=== PATIENT | male | born 1955 | race Caucasian/White ===

== ENCOUNTER 2017-07-13 18:44 | Inpatient (IN) | payer MEDICAID ==
[~2017-07-13] VITALS: Ht 167.6 cm; Wt 86.2 kg
[2017-07-13 19:09] LABS: BASOPHILS 0.3 % (0-2); HEMATOCRIT 38.5 % (42.0-54.0); HEMOGLOBIN 12.8 g/dL (13.5-17.5); IMMATURE GRANULOCYTES 0.2 % (0-5); LYMPHOCYTES 16.2 % (15-50); MCH 29.4 pg (26.0-34.0); MCHC 33.2 g/dL (31.0-37.0); MCV 88.3 fL (80.0-100.0); MEAN PLATELET VOLUME 9.8 fL (7.4-10.4); MONOCYTES 11.9 % (2-11); NEUTROPHILS 69.4 % (40-80); PLATELET COUNT 201 10x3/uL (130-400); RBC 4.36 10x6/uL (4.20-6.10); RDW 13.4 % (11.5-14.5)
[2017-07-13 19:24] LABS: ALBUMIN 3.5 g/dL (3.4-5.0); ANION GAP 11.8 mmol/L (8-16); BILIRUBIN - TOTAL 0.69 mg/dL (0.2-1.3); CALCIUM 8.6 mg/dL (8.5-10.1); CARBON DIOXIDE 26.5 mmol/L (21.0-32.0); CREATININE - SERUM 1.2 mg/dL (0.6-1.3); POTASSIUM - SERUM 4.3 mmol/L (3.5-5.1)
[2017-07-13 19:27] LABS: TROPONIN-I 0.043 ng/mL (0.000-0.060)
[2017-07-13 19:44] LABS: CKMB 2.9 U/L (0.0-3.6); CREATINE KINASE 174 UL (21-232); PRO BNP 8650 pg/mL (0-125)
[2017-07-13 20:35] LABS: APPEARANCE CLEAR (CLEAR); BILIRUBIN NEGATIVE (NEGATIVE); COLOR YELLOW (YELLOW); GLUCOSE NEGATIVE (NEGATIVE); KETONE NEGATIVE (NEGATIVE); LEUKOCYTE ESTERASE NEGATIVE (NEGATIVE); NITRITE NEGATIVE (NEGATIVE); PROTEIN TRACE mg/dL (NEGATIVE); SPECIFIC GRAVITY 1.015 (1.005-1.020); UROBILINOGEN NORMAL (NORMAL)
[2017-07-13 21:08] LABS: UDS - AMPHET POSITIVE QUAL (NEGATIVE); UDS - BARB NEGATIVE QUAL (NEGATIVE); UDS - BENZO NEGATIVE QUAL (NEGATIVE); UDS - COCAINE NEGATIVE QUAL (NEGATIVE); UDS - METH NEGATIVE QUAL (NEGATIVE); UDS - OPIATE POSITIVE QUAL (NEGATIVE); UDS - PCP NEGATIVE QUAL (NEGATIVE); UDS - THC POSITIVE QUAL (NEGATIVE)
[2017-07-13 22:37] LABS: CKMB 3.1 U/L (0.0-3.6); CREATINE KINASE 178 UL (21-232); TROPONIN-I 0.036 ng/mL (0.000-0.060)
[2017-07-13 23:33] VITALS: BP 144/88; BMI 30.7
[2017-07-14 01:15] VITALS: BP 144/88
[2017-07-14 03:45] VITALS: BP 133/81
[2017-07-14 05:48] LABS: CKMB 2.7 U/L (0.0-3.6); CREATINE KINASE 126 UL (21-232); TROPONIN-I 0.026 ng/mL (0.000-0.060)
--- NOTE | 2017-07-14 07:11 | NUR ---
AM ROUNDS- PT IN BED, WITH EYES CLOSED, EASILY AROUSABLE, RESP EVEN AND UNLABORED. RT AC SL, BED LOW AND WHEELS LOCKED, BEDSIDE RAILS X2, CALL LIGHT IN REACH, NAD NOTED, WILL CONTINUE TO MONITOR.
[2017-07-14 08:00] VITALS: BP 152/66
--- NOTE | 2017-07-14 08:40 | NUR ---
AM MEDS GIVEN AT THIS TIME. INSTRUCTED PT TO USE URINAL SO WE CAN KEEP STRICT I&O. PT DENIES ANY NEEDS AT THIS TIME. CALL LIGHT IN REACH, NAD NOTED, WILL CONTINUE TO MONITOR.
[2017-07-14 09:50] VITALS: Ht 167.6 cm; Wt 86.2 kg
[2017-07-14 10:59] LABS: CKMB 2.2 U/L (0.0-3.6); CREATINE KINASE 131 UL (21-232); TROPONIN-I 0.026 ng/mL (0.000-0.060)
[2017-07-14 12:00] VITALS: BP 132/99
--- NOTE | 2017-07-14 12:16 | NUR ---
500MG OF TYLENOL GIVEN FOR PAIN LEVEL OF 7/10. HARDIK ELI APN AT BEDSIDE. PT DENIES ANY OTHER NEEDS AT THIS TIME. CALL LIGHT IN REACH, NAD NOTED, WILL CONTINUE TO MONITOR.
--- NOTE | 2017-07-14 14:52 | NUR ---
ADMINISTERED MEDS ORDERED, PT REFUSED NICOTINE PATCH AT THIS TIME. PT DENIES ANY NEEDS, CALL LIGHT IN REACH, NAD NOTED, WILL CONTINUE TO MONITOR.
[2017-07-14 16:00] VITALS: BP 127/82
--- NOTE | 2017-07-14 20:02 | NUR ---
ANSWERED PHONE CALL FROM PT'S AUNT, STATE SHE WILL COME TO VISIT PT TOMORROW.
[2017-07-14 21:26] VITALS: BP 146/81
--- NOTE | 2017-07-15 03:11 | NUR ---
PT LYING IN BED, EYES CLOSED, RESPIRATIONS EVEN AND UNLABORED. CONTINUE TO MONITOR CLOSELY. BED LOW, CALL LIGHT IN REACH, SIDE RAILS X 2, HOB 20 DEGREES.
--- NOTE | 2017-07-15 04:43 | NUR ---
REST QUIETLY IN BED, EYE CLOSE, CALL LIGHT IN REACH.
[2017-07-15 06:13] LABS: BASOPHILS 0 % (0-2); EOSINOPHILS 0 % (0-7); HEMATOCRIT 42.2 % (42.0-54.0); HEMOGLOBIN 14.3 g/dL (13.5-17.5); IMMATURE GRANULOCYTES 0.3 % (0-5); LYMPHOCYTES 3.7 % (15-50); MCH 29.7 pg (26.0-34.0); MCHC 33.9 g/dL (31.0-37.0); MCV 87.6 fL (80.0-100.0); MEAN PLATELET VOLUME 10.2 fL (7.4-10.4); MONOCYTES 7.8 % (2-11); NEUTROPHILS 88.2 % (40-80); RBC 4.82 10x6/uL (4.20-6.10); RDW 13.5 % (11.5-14.5)
[2017-07-15 06:20] LABS: PLATELET COUNT 270 10x3/uL (130-400); WBC 10.9 10x3/uL (4.8-10.8)
[2017-07-15 06:30] LABS: ANION GAP 10.6 mmol/L (8-16); CALCIUM 9.2 mg/dL (8.5-10.1); CARBON DIOXIDE 31.2 mmol/L (21.0-32.0); CREATININE - SERUM 1.2 mg/dL (0.6-1.3); POTASSIUM - SERUM 3.8 mmol/L (3.5-5.1)
--- NOTE | 2017-07-15 07:23 | NUR ---
AM ROUNDS- PT IN BED, REQUESTED A CUP OF COFFEE. WILL PROVIDE PT WITH SOME COFFEE. PT DENIES ANY OTHER NEEDS AT THIS TIME. RESP EVEN AND REGULAR. BED LOW AND WHEELS LOCKED, BEDSIDE RAILS X1, RT AC SL. CALL LIGHT IN REACH, NAD NOTED, WILL CONTINUE TO MONITOR.
[2017-07-15 07:59] VITALS: BP 130/77
--- NOTE | 2017-07-15 09:55 | NUR ---
AM MEDS GIVEN AT THIS TIME. PT JUST GOT DONE WITH SHOWER. DENIES ANY NEEDS AT THIS TIME. CALL LIGHT IN REACH, NAD NOTED, WILL CONTINUE TO MONTIOR.
[2017-07-15 12:03] VITALS: BP 146/89
[2017-07-15] MEDS ORDERED: LISINOPRIL2.5 MG PO (15:34)
[2017-07-15] MEDS ORDERED: K-DUR20 MEQ PO (15:34)
[2017-07-15] MEDS ORDERED: LASIX20 MG PO (15:34)
[2017-07-15] MEDS ORDERED: NICODERM C1 PATCH .2 TRANSDERM (15:34)
[2017-07-15] MEDS ORDERED: MEDROL DOSE PACK4 MG PO (15:35)
[2017-07-15 16:00] VITALS: BP 150/90
--- NOTE | 2017-07-15 16:29 | NUR ---
PROVIDED DISCHARGE TEACHING TO PT, PT VERBALIZED UNDERSTANDING REGARDING TEACHING. D/C RT AC IV, TIP INTACT. REMOVED HEART MONITOR AND TAKEN TO FRANCINE MEDICAL INSURANCE COLLECTOR. PT LEFT UNIT VIA AMBULATORY ACCOMPANIED BY FRIEND, NAD NOTED.
--- NOTE | 2017-07-17 16:47 | EC ---
PATIENT:IVA BROCK DATE OF SERVICE: 07/13/17 SEX: M MEDICAL RECORD: [id number] DATE OF : [birth year] LOCATION:D. D.211 AGE OF PATIENT: 61 ADMISSION DATE: 07/13/17 REFERRING PHYSICIAN: INTERPRETING PHYSICIAN: CINTHIA TAPIA MD ECHOCARDIOGRAM REPORT ECHO CHARGES 4 ECHO COMPLETE CLINICAL DIAGNOSIS: CHF ECHOCARDIOGRAPHIC MEASUREMENTS (adult normal given) AC root (d.<3.7cm) 3.5 cm LV Septum d (<1.2 cm> 0.80 cm Valve Excursion 1.8 cm LV Septum (systole) 1.1 cm Left Atria (s.<4.0cm> 4.5 cm LVPW d(<1.2cm) 1.1 cm RV (d.<2.3cm) 4.2 cm LVPW (sytole) 1.3 cm LV diastole(<5.6CM) 7.8 cm MV E-F(>70mm/sec) cm LV systole 6.2 cm LVOT Diameter 1.9 cm MV exc.(>10mm) 0.90 cm Est.ejection fraction (50-75%) % Pericardial Effusion N DOPPLER: LVIT cm/sec A 144 cm/sec E 134 cm/sec LA cm/sec RVSP 45 mmHg LVOT 134 cm/sec AOP1/2T m/s Asc. Ao 144 cm/sec RVOT 74 cm/sec RA cm/sec PA 153 cm/sec AV Gradient Peak 8.29 mmHg AV Mean 4.17 mmHg AV Area 2.0 cm MV Gradient Peak 3.68 mmHg MV Mean 1.68 mmHg MV Area cm COMMENTS: Burn Out Tender Lace: Delfin BUNDY Drill Hand: Ana Paula Tapia TAPE# PACS DATE OF SERVICE: 07/13/2017 INTERPRETATION: 1. Left ventricular chamber size is within normal limits. Left ventricular systolic function is decreased. Overall ejection fraction is 35% to 40%. 2. Left atrium is enlarged at 4.5 cm. Right atrium and right ventricular chamber sizes are mildly dilated. 3. Valvular structures have normal structure and motion. 4. Doppler interrogation reveals mild aortic insufficiency, weyk-od-rwbkyhrj mitral regurgitation, and pmlm-pn-nxawcwvs tricuspid regurgitation. No other ECHOCARDIOGRAM REPORT [id number] IVA BROCK valvular insufficiency or stenosis. Pulmonary systolic pressure is mildly elevated, estimated at 45 mmHg. 5. No evidence of pericardial effusion or left ventricular thrombus. TRANSINT:[id number] Voice Confirmation ID: [id number] DOCUMENT ID: [id number] CINTHIA TAPIA MD at 1647 CC: [id number] DICTATION DATE: 07/14/17 1052 VESSEL CREW MEMBER: 07/14/17 1301 DIS IN 07/15/17 [place] [id number] [place] [id number]
== END 2017-07-15 16:30 | disposition home or self-care (01) | DRG 292 ==
LOC: D.ER 18:44 → D.M2 22:01 → D.SDCHOLD 07-15 16:23 → D.M2 07-15 16:24
PROVIDERS: Emergency Medicine; Family Medicine; ADMIT Family Medicine
DX: I50.9 Heart failure, unspecified (principal); J44.1 Chronic obstructive pulmonary disease with (acute) exacerbation; F17.203 Nicotine dependence unspecified, with withdrawal; F15.10 Other stimulant abuse, uncomplicated; F12.10 Cannabis abuse, uncomplicated; F11.10 Opioid abuse, uncomplicated

== ENCOUNTER 2017-09-26 01:31 | Observation (INO) | payer MEDICAID ==
[~2017-09-26] VITALS: Ht 182.9 cm; Wt 122.9 kg
[~2017-09-26 01:31] MED LIST: K-DUR20 MEQ PO; LASIX20 MG PO; LISINOPRIL2.5 MG PO; MEDROL DOSE PACK4 MG PO; NICODERM C1 PATCH .2 TRANSDERM
[2017-09-26 02:07] LABS: BASOPHILS 0.6 % (0-2); EOSINOPHILS 4.4 % (0-7); HEMATOCRIT 40.8 % (42.0-54.0); HEMOGLOBIN 13.3 g/dL (13.5-17.5); IMMATURE GRANULOCYTES 0.2 % (0-5); LYMPHOCYTES 20.9 % (15-50); MCH 28.9 pg (26.0-34.0); MCHC 32.6 g/dL (31.0-37.0); MCV 88.7 fL (80.0-100.0); MEAN PLATELET VOLUME 10.2 fL (7.4-10.4); MONOCYTES 13.8 % (2-11); NEUTROPHILS 60.1 % (40-80); RDW 13.9 % (11.5-14.5); WBC 5.5 10x3/uL (4.8-10.8)
[2017-09-26 02:11] LABS: PLATELET COUNT 198 10x3/uL (130-400)
[2017-09-26 02:12] LABS: ALBUMIN 3.6 g/dL (3.4-5.0); ANION GAP 10.5 mmol/L (8-16); BILIRUBIN - TOTAL 0.7 mg/dL (0.2-1.3); CALCIUM 8.8 mg/dL (8.5-10.1); CARBON DIOXIDE 28.7 mmol/L (21.0-32.0); CREATININE - SERUM 1.3 mg/dL (0.6-1.3); POTASSIUM - SERUM 4.2 mmol/L (3.5-5.1); PROTEIN - SERUM 7.3 g/dL (6.4-8.2)
--- NOTE | 2017-09-26 05:47 | NUR ---
PATIENT IS SLEEPING SOUNDLY. NO PAIN REPORTED AT THIS TIME. DENIES ANY NEEDS. BED LOW , CALL LIGHT IN REACH.
[2017-09-26 06:22] VITALS: BP 131/91; BMI 25.8
--- NOTE | 2017-09-26 06:34 | NUR ---
PT RESTING COMFORTABLY, NO NEEDS AT THIS TIME. CONTINUE TO MONITOR CLOSELY.
--- NOTE | 2017-09-26 07:20 | NUR ---
RECEIVED REPORT. ASSUMED CARE OF PATIENT. CALL LIGHT WITHIN REACH. DENIES NEEDS AT THIS TIME. NO DISTRESS.
[2017-09-26 08:20] VITALS: Ht 182.9 cm; Wt 122.9 kg
--- NOTE | 2017-09-26 12:15 | NUR ---
RESTING IN BED. CALL LIGHT WITHIN REACH. PATIENT HAS NO NEEDS AT THIS TIME. FRESH ICE WATER PROVIDED. NO DISTRESS.
--- NOTE | 2017-09-26 14:15 | NUR ---
UDS SENT TO LAB AT THIS TIME. NO DISTRESS.
[2017-09-26 14:26] LABS: UDS - AMPHET NEGATIVE QUAL (NEGATIVE); UDS - BARB NEGATIVE QUAL (NEGATIVE); UDS - BENZO NEGATIVE QUAL (NEGATIVE); UDS - COCAINE NEGATIVE QUAL (NEGATIVE); UDS - OPIATE NEGATIVE QUAL (NEGATIVE); UDS - PCP NEGATIVE QUAL (NEGATIVE); UDS - THC POSITIVE QUAL (NEGATIVE)
--- NOTE | 2017-09-26 17:25 | NUR ---
RESTING IN BED WITH EYES CLOSED, EASILY AROUSED. CALL LIGHT WITHIN REACH. NO DISTRESS.
--- NOTE | 2017-09-26 20:11 | NUR ---
PATIENT IS RESTING ON HIS LEFT SIDE IN A DARK ROOM. DENIES ANY NEEDS AT THIS TIME. DENIES ANY PAIN. BED IN LOW POSITION, CALL LIGHT IN REACH.
[2017-09-27 04:00] VITALS: BP 110/71
[2017-09-27 04:55] LABS: EOSINOPHILS 5.8 % (0-7); HEMATOCRIT 41.5 % (42.0-54.0); HEMOGLOBIN 13.6 g/dL (13.5-17.5); IMMATURE GRANULOCYTES 0.2 % (0-5); LYMPHOCYTES 19.8 % (15-50); MCH 28.9 pg (26.0-34.0); MCHC 32.8 g/dL (31.0-37.0); MCV 88.3 fL (80.0-100.0); MEAN PLATELET VOLUME 10.4 fL (7.4-10.4); MONOCYTES 12.7 % (2-11); NEUTROPHILS 60.5 % (40-80); PLATELET COUNT 211 10x3/uL (130-400); RDW 13.8 % (11.5-14.5); WBC 4.8 10x3/uL (4.8-10.8)
[2017-09-27 05:30] LABS: ALBUMIN 3.2 g/dL (3.4-5.0); ANION GAP 11.4 mmol/L (8-16); BILIRUBIN - TOTAL 0.8 mg/dL (0.2-1.3); CALCIUM 8.7 mg/dL (8.5-10.1); CARBON DIOXIDE 28.4 mmol/L (21.0-32.0); CREATININE - SERUM 1.1 mg/dL (0.6-1.3); POTASSIUM - SERUM 3.8 mmol/L (3.5-5.1); PROTEIN - SERUM 6.7 g/dL (6.4-8.2)
--- NOTE | 2017-09-27 07:45 | NUR ---
AM ROUNDS COMPLETED. INTRODUCED MYSELF TO PT PRIMARY RN FOR TODAYS SHIFT. PT A&O SITTING UP IN BED AND STATES HE HOPES TO BE DISCHARGED TODAY. RR NONLABORED ON RA. PT STATES HE IS FEELING WELL OVERALL. DENIES ANY CURRENT PAIN OR NEEDS AT THIS TIME. CL IN REACH, BED IN LOWEST, SIDE RAILS X2. WILL CPOC.
[2017-09-27 08:05] VITALS: BP 115/76
--- NOTE | 2017-09-27 10:34 | NUR ---
PT AMBULATING AROUND NURSES STATION SLOW STEADY GAIT AND DENIES ANY CURRENT PAIN OR NEEDS.
[2017-09-27 11:34] VITALS: BP 125/69
--- NOTE | 2017-09-27 14:41 | NUR ---
PT C/O NOT SEEING THE DOCTOR YET AND WANTING TO BE DISCHARGED. PAGED HARDIK ELI APN FOR PRIMARY AND WILL ASK ABOUT DISCHARGE PLANS.
[2017-09-27 15:56] VITALS: BP 144/83
--- NOTE | 2017-09-27 16:00 | NUR ---
AND HARDIK ELI ROUNDING AND STATED PT CAN BE DISCHARGED. WILL AWAIT ORDERS.
--- NOTE | 2017-09-27 16:45 | NUR ---
D/C'D PTS L.FA PIV WITH CATHETER TIP FULLY INTACT. PT ANXIOUS TO BE DISCHARGED AND IS WAITING ON THE DOCTORS TO PUT IN THE ORDERS. WILL CONTINUE TO WAIT ON THEM.
[2017-09-27] MEDS ORDERED: LISINOPRIL10 MG PO (17:03)
[2017-09-27] MEDS ORDERED: LASIX20 MG PO (17:03)
--- NOTE | 2017-09-27 17:24 | NUR ---
DISCHARGE TEACHING PROVIDED AND PAPERS SIGNED. PT VERBALIZED UNDERSTANDING AND DENIES ANY FURTHER QUESTIONS OR NEEDS. COLLECTED HIS BELONGINGS AND LEAVING NOW.
--- NOTE | 2017-09-28 08:17 | CN ---
PATIENT NAME:IVA BROCK MEDICAL RECORD: [id number] : 59 LOCATION:[place] D.2102 ADMIT DATE: 09/26/17 ACCOUNT: [id number] CONSULTING PHYSICIAN: CHANDNI ORDOÑEZ MD REFERRING PHYSICIAN: ZULMA BAUM MD DATE OF CONSULTATION: 09/26/2017 HISTORY OF PRESENT ILLNESS: A 61-year-old gentleman with a known cardiomyopathy at 35% to 40%, history of hypertension, ongoing tobacco use, admitted with volume overload, elevated BNP, has diuresed nicely with improvement in symptomatology. In retrospect, he did run out of his medication that was given previously. Primary care is typically Dr. Ortega. We are asked to see him concerning his cardiovascular status. PAST MEDICAL HISTORY: 1. History of hypertension. 2. Cardiomyopathy as described above. 3. Probable obstructive coronary disease on exam today. SOCIAL HISTORY: He lives here in [place]. Previous history of illicit drug use. Smokes about a pack a day. He is able to take care of his ADLs. ALLERGIES: None known. MEDICATIONS: Chronically include lisinopril 2.5 every day, Lasix 20 every day, potassium supplementation. REVIEW OF SYSTEMS: The patient reports easy bruising but reports no swollen glands. The patient reports no fever, no night sweats, no significant weight gain, no significant weight loss. No significant exercise tolerance. The patient reports no dry eyes, no irritation, no vision change. Patient reports no difficulty hearing and no ear pain. Patient reports no frequent nose bleeds or nose and sinus problems. Patient reports on arm pain on exertion. No shortness of breath while lying down. No history of heart murmur. Patient reports no cough, no wheezing or coughing up blood. Patient reports no abdominal pain, no vomiting. Normal appetite. No diarrhea and not vomiting blood. No nausea and no constipation. Patient reports no incontinence. No difficulty urinating. No hematuria. No increased frequency. Patient reports no muscle aches. No weakness, no arthralgias, no back pain. No swelling of the extremities. Patient reports no abnormal mole, no jaundice, no rashes. Reports no loss of consciousness. No weakness and no numbness. No seizures, dizziness, or headaches. The patient reports no depression, no sleep disturbance, feeling safe in a relationship and no alcohol abuse. Patient reports on fatigue. Reports no runny nose or sinus pressure. No itching, no hives, and no frequent sneezing. PHYSICAL EXAMINATION: GENERAL: Pleasant gentleman, in no acute distress, appears stated age. VITAL SIGNS: Blood pressure 131/91, pulse 85 and regular. HEENT: Normocephalic, atraumatic. NECK: No bruits noted. HEART: Regular. Probable S3 gallop. A II/ systolic ejection murmur. LUNGS: Prolonged expiratory phase with expiratory wheezing. ABDOMEN: Soft, nontender. EXTREMITIES: Pulses are 2+. Trace edema. CONSULT REPORT [id number] IVA BROCK NEUROLOGIC: Grossly intact. IMPRESSION: Joobb-nq-mlztimj systolic dysfunction secondary to inability to afford medications. We will add Aldactone to his baseline medical regime, should help encourage diuresis and he should be able to afford this in the [employer] list. Thank you for the consultation. TRANSINT:[id number] Voice Confirmation ID: [id number] DOCUMENT ID: [id number] CHANDNI ORDOÑEZ MD at 0817 CC: [id number] DICTATION DATE: 09/26/17 0939 REGISTERED ACCOUNT ADMINISTRATOR: 09/26/17 1156 DIS IN 09/27/17 [facility] [address] [place] [address]
--- NOTE | 2017-10-30 12:26 | DS ---
PATIENT:IVA BROCK :59 MEDICAL RECORD: [id number] DISCHARGE SUMMARY ADMISSION DATE: 09/26/17 DISCHARGE DATE: 09/27/17 DATE OF ADMISSION: 09/26/2017 DATE OF DISCHARGE: 09/27/2017 DISCHARGE DIAGNOSES: 1. Ijleg-jd-nkykmhp systolic failure. 2. Cardiomyopathy. 3. Hypertension. 4. History of colon cancer. CONSULTS: Dionisio Tee MD IMAGING: Chest x-ray, which shows cardiomegaly, but no acute processes. HOSPITAL COURSE: The full H&P is located elsewhere in the chart. This 61-year-old patient who was admitted through [place] Department [place] [facility] [place] with increasing shortness of breath and an elevated proBNP. He did not have any incidence of vascular congestion on his chest x-ray. Apparently, he had ran out of his cardiomyopathy medications. He was diuresed with IV furosemide, which he responded well to. He was started on Aldactone during his hospitalization. His condition stabilized. He was thought to be stable and was discharged to home to follow up in the outpatient setting. TRANSINT:[id number] Voice Confirmation ID: [id number] DOCUMENT ID: [id number] Dictated By: KALYAN DIAZ I have interviewed/examined the above patient and agree with these documented findings. ZULMA BAUM MD at 1226 at 1433 CC: [id number] DICTATION DATE: 10/21/17 1629 HOME HEALTH OUTREACH COORDINATOR: 10/22/17 0916 DIS IN 09/27/17 [place] [id number] [place] [address]
== END 2017-09-27 17:27 | disposition home or self-care (01) ==
LOC: D.ER 01:31 → OBSVTIME 03:20 → D.M2 03:20
PROVIDERS: Emergency Medicine; ADMIT Family Medicine
DX: I11.0 Hypertensive heart disease with heart failure (principal); I50.23 Acute on chronic systolic (congestive) heart failure; F17.203 Nicotine dependence unspecified, with withdrawal; I42.9 Cardiomyopathy, unspecified; J44.1 Chronic obstructive pulmonary disease with (acute) exacerbation; F12.10 Cannabis abuse, uncomplicated

== ENCOUNTER 2017-11-10 06:28 | Emergency (ER) | payer MEDICAID ==
[2017-09-26 08:20] VITALS: BMI 25.7
[~2017-11-10 06:28] MED LIST changes: +LISINOPRIL10 MG PO
[2017-11-10 07:00] LABS: BASOPHILS 0.1 % (0-2); HEMATOCRIT 43.1 % (42.0-54.0); HEMOGLOBIN 13.8 g/dL (13.5-17.5); IMMATURE GRANULOCYTES 0.2 % (0-5); LYMPHOCYTES 13.5 % (15-50); MCH 28.6 pg (26.0-34.0); MCV 89.4 fL (80.0-100.0); MEAN PLATELET VOLUME 10.4 fL (7.4-10.4); MONOCYTES 11.6 % (2-11); NEUTROPHILS 73.6 % (40-80); PLATELET COUNT 186 10x3/uL (130-400); RBC 4.82 10x6/uL (4.20-6.10); RDW 13.9 % (11.5-14.5); WBC 8.4 10x3/uL (4.8-10.8)
[2017-11-10 07:13] LABS: ALBUMIN 4.1 g/dL (3.4-5.0); ALKALINE PHOSPHATASE 97 U/L (46-116); ALT (SGPT) 37 U/L (10-68); BILIRUBIN - TOTAL 1.47 mg/dL (0.2-1.3); CALC OSMOLALITY 280 mosm/kg (275-300); CALCIUM 9.3 mg/dL (8.5-10.1); CHLORIDE - SERUM 102 mmol/L (98-107); GLUCOSE 119 mg/dL (74-106); POTASSIUM - SERUM 4.1 mmol/L (3.5-5.1); SODIUM 140 mmol/L (136-145); UREA NITROGEN 14 mg/dL (7-18); eGFR NON AFRICAN AMERICAN 81 mL/min (90-120)
[2017-11-10 07:20] LABS: CREATINE KINASE 83 UL (21-232); PRO BNP 10892 pg/mL (0-125)
== END 2017-11-10 10:21 | disposition home or self-care (01) ==
LOC: D.ER 06:28
PROVIDERS: Family Medicine
DX: I50.9 Heart failure, unspecified (principal); F17.200 Nicotine dependence, unspecified, uncomplicated; Z85.038 Personal history of other malignant neoplasm of large intestine; R00.0 Tachycardia, unspecified

== ENCOUNTER 2018-01-01 10:33 | Emergency (ER) | payer MEDICAID ==
[2017-09-26 08:20] VITALS: BMI 25.7
== END 2018-01-01 11:36 | disposition home or self-care (01) ==
LOC: D.ER 10:33
DX: Z76.0 Encounter for issue of repeat prescription (principal); I50.9 Heart failure, unspecified

== ENCOUNTER 2018-01-03 10:29 | Emergency (ER) | payer MEDICAID ==
[2017-09-26 08:20] VITALS: BMI 25.7
[2018-01-03 11:15] LABS: APPEARANCE CLEAR (CLEAR); BILIRUBIN NEGATIVE (NEGATIVE); COLOR YELLOW (YELLOW); GLUCOSE NEGATIVE (NEGATIVE); KETONE NEGATIVE (NEGATIVE); NITRITE NEGATIVE (NEGATIVE); PROTEIN TRACE mg/dL (NEGATIVE); SPECIFIC GRAVITY 1.015 (1.005-1.020); UROBILINOGEN NORMAL (NORMAL)
[2018-01-03 11:18] LABS: BACTERIA FEW /hpf (NONE SEEN); EPITHELIAL CELLS RARE /hpf (0-5); RED CELLS - URINE 0-5 /hpf (0-5); WHITE CELLS - URINE OCC /hpf (0-5)
[2018-01-03 11:21] LABS: BASOPHILS 0.3 % (0-2); EOSINOPHILS 1.2 % (0-7); HEMATOCRIT 41.1 % (42.0-54.0); HEMOGLOBIN 13.1 g/dL (13.5-17.5); IMMATURE GRANULOCYTES 0.2 % (0-5); LYMPHOCYTES 16.2 % (15-50); MCH 28.1 pg (26.0-34.0); MCHC 31.9 g/dL (31.0-37.0); MCV 88.2 fL (80.0-100.0); MONOCYTES 13.3 % (2-11); NEUTROPHILS 68.8 % (40-80); PLATELET COUNT 194 10x3/uL (130-400); RBC 4.66 10x6/uL (4.20-6.10); RDW 14.3 % (11.5-14.5); WBC 5.9 10x3/uL (4.8-10.8)
[2018-01-03 11:33] LABS: ALBUMIN 3.7 g/dL (3.4-5.0); ANION GAP 12.2 mmol/L (8-16); BILIRUBIN - TOTAL 0.88 mg/dL (0.2-1.3); CALCIUM 8.6 mg/dL (8.5-10.1); CARBON DIOXIDE 30.4 mmol/L (21.0-32.0); CREATININE - SERUM 1.1 mg/dL (0.6-1.3); POTASSIUM - SERUM 3.6 mmol/L (3.5-5.1); PROTEIN - SERUM 7.4 g/dL (6.4-8.2)
== END 2018-01-03 14:40 | disposition home or self-care (01) ==
LOC: D.ER 10:29
PROVIDERS: Family Medicine
DX: R60.0 Localized edema (principal); R06.01 Orthopnea; Z86.79 Personal history of other diseases of the circulatory system; F17.200 Nicotine dependence, unspecified, uncomplicated

== ENCOUNTER 2019-05-02 11:37 | Inpatient (IN) | payer MEDICAID ==
[~2019-05-02] VITALS: Ht 182.9 cm; Wt 90.9 kg
--- NOTE | ~2019-05-02 | HEMODYNAMI ---
PATIENT:IVA BROCK MEDICAL RECORD: [id number] : 59 LOCATION:[place] [address] ADMISSION DATE: 05/02/19 Generatedon:05/03/201910:47 Patient name: IVA BROCK Patient #: [id number] SSN: : 1955 Date of study: 05/03/2019 Page: Of Hemodynamic Procedure Report Patient Data Patient Demographics First Name: IVA Gender: Male Last Name: VINOD : 1955 Patient #: [id number] Age: 63 year(s) Race: Unknown Additional ID: [id number] Contact details Address: [address] [place] [address] State: [place] City: [place] Zip code: [address] Past Medical History Allergies: No known allergies Admission Admission Data Admission Date: 05/02/2019 Admission Time: 18:24 Room [facility] Weight (lbs.): 198.42 Weight (kg.): 90 Lab Results Lab Result Date: 05/03/2019 Lab Result Time: 5:42 Biochemistry Name Units Result Min Max BUN mg/dl 15 --(--*-)-- 7 18 Creatinine mg/dl 1.1 --(--*-)-- 0.6 1.3 CBC Name Units Result Min Max Hematocrit % 35.3 *-(----)-- 42 54 Hemoglobin g/dl 11.8 *-(----)-- 13.5 17.5 Procedure Procedure Types Cath Procedure Diagnostic Procedure LHC LHC w/Coronaries FFR/IVUS FFR Initial Intra-Coronary IVUS Initial Sedation Charges Moderate Sedation up to 15 minutes PCI Procedure Coronary Stent Coronary Stent Initial Procedure Description Procedure Date Procedure Date: 05/03/2019 Procedure Start Time: 10:16 Procedure End Time: 10:41 Procedure Staff Name Function Karen Godoy RN Nurse Berto Tapia MD Performing Physician Hayes Nichols RT Monitor Danielle Jones RT Scrub Procedure Data Cath Procedure Fluoroscopy Diagnostic fluoroscopy Total fluoroscopy Time: 5.4 time: 5.4 min min Diagnostic fluoroscopy Total fluoroscopy dose: dose: 487.46 mGy 487.46 mGy Contrast Material Contrast Material Type Amount (ml) Isovue 370 86 Entry Location Entry Primary Successful Side Size Upsize Upsize Entry Closure Michaels ccessful Closure Location (Fr) 1 (Fr) 2 (Fr) Remarks Device Remarks Radial Right 6 Fr Mechanical artery Short Compression Estimated blood loss: 10 ml Diagnostic catheters Device Type Used For End Catheter Placement DIAGNOSTIC [place] 110cm 5 Procedure Fr catheter ([id number]) DIAGNOSTIC AR2 MOD 5 Fr Procedure catheter ([id number]) Procedure Complications No complications Procedure Medications Medication Administration Route Dosage Oxygen etCO2 Nasal cannula 3 l/min Lidocaine 2% added to field 20 Heparin Flush Bag added to field 2 bags (1000units/500ml NS) 0.9% NaCl I.V. 100 ml/hr Radial Cocktail I.A. 1 syringe (Verapamil 2mg/Nitro 400mcg/Heparin 1500units) Versed I.V. 1 mg Fentanyl I.V. 50 mcg Heparin Bolus I.V. 4000 units Fentanyl I.V. 25 mcg Dobutamine I.V. drip 5 mcg/kg/min (500mg/250ml D5W) Plavix P.O. 75 mg Hemodynamics Rest HGB: 11.8 (g/dl) Heart Rate: 81 (bpm) Pressure Samples Time Site Value (mmHg) Purpose Heart Use Rate(bpm) 10:18 LV 57/20,22 Snapshot 74 Snapshots Pre Cath Intra NCS Post Cath Vital Signs Time Heart Resp SPO2 etCO2 NIBP (mmHg) Rhythm Pain Sedation Rate (ipm) (%) (mmHg) Status Level (bpm) 10:01:47 81 26 100 0 125/96(110) NSR (Missing) 10(A) 10:05:55 78 22 100 0 133/93(114) NSR (Missing) 10(A) 10:10:07 78 20 98 0 129/90(110) NSR (Missing) 10(A) 10:14:18 76 20 98 0 135/88(115) NSR (Missing) 9(A) 10:18:32 76 23 97 0 134/90(108) NSR (Missing) 9(A) 10:22:48 73 20 93 0 129/85(102) NSR (Missing) 9(A) 10:26:58 73 19 94 0 128/87(109) NSR (Missing) 9(A) 10:31:08 74 18 97 0 137/92(108) NSR (Missing) 9(A) 10:35:24 73 19 96 0 130/89(113) NSR (Missing) 9(A) 10:39:36 74 20 97 0 131/89(108) NSR (Missing) 10(A) Medications Time Medication Route Dose Verified Delivered Reason Notes Effectiveness by by 9:41:52 Oxygen etCO2 3 l/min Berto Jones used for Nasal Willie Godoy RN procedure cannula 9:42:00 Lidocaine 2% added 20ml vial Berto Thomson for local to Willie Tapia MD anesthetic field 9:42:06 Heparin Flush added 2 bags Berto Thomson used for Bag to Willie Tapia MD procedure (1000units/500ml field NS) 9:42:17 0.9% NaCl I.V. 100 ml/hr Berto Jones Per physician Willie Godoy RN 10:16:39 Versed I.V. 1 mg Berto Jones for sedation Willie Godoy RN 10:16:47 Fentanyl I.V. 50 mcg Berto Jones for sedation Willie Godoy RN 10:18:06 Radial Cocktail I.A. 1 syringe Berto Thomson for (Verapamil Willie Tapia MD vasodilation 2mg/Nitro 400mcg/Hepari 10:24:03 Fentanyl I.V. 25 mcg Berto Jones for sedation Willie Godoy RN 10:32:23 Heparin Bolus I.V. 4000 units Berot Jones for Verified Willie Godoy RN anticoagulation with dr tapia 10:40:46 Dobutamine I.V. 5 Berto Jones Per physician (500mg/250ml drip mcg/kg/min Willie Godoy RN D5W) 10:40:54 Plavix P.O. 75 mg Berto Jones for Willie Godoy RN antiplatelet therapy Procedure Log Time Note 9:29:37 Signed procedure consent form obtained from patient. 9:29:39 Diagnostic Cath status Urgent 9:29:40 Time tracking: Regular hours (M-F 7:00 - 5:00) 9:29:44 Plan of Care:Hemodynamics will remain stable., Cardiac rhythm will remain stable., Comfort level will be maintained., Respiratory function will remain adequate., Patient/ family verbilizes understanding of procedure., Procedure tolerated without complication., Recovers from procedure without complications.. 9:34:47 Danielleaishwarya Jones RT(R) sent for patient. Start room use. 9:41:52 Oxygen 3 l/min etCO2 Nasal cannula was administered by Karen Godoy RN; used for procedure; 9:42:00 Lidocaine 2% 20ml vial added to field was administered by Berto Tapia MD; for local anesthetic; 9:42:06 Heparin Flush Bag (1000units/500ml NS) 2 bags added to field was administered by Berto Tapia MD; used for procedure; 9:42:17 0.9% NaCl 100 ml/hr I.V. was administered by Karen Godoy RN; Per physician; 9:48:02 Patient received from Med II to CCL 3 Alert and oriented. Tansferred to table in Supine position. 9:48:03 Warm blankets applied, and komal hugger turned on for patient comfort. 9:48:03 Correct patient and procedure confirmed by team. 9:48:04 ECG and BP/O2 sat monitors applied to patient. 10:00:50 Vital chart was started 10:04:12 Rhythm: sinus rhythm 10:04:15 Baseline sample Acquired. 10:04:17 Full Disclosure recording started 10:04:25 H&P Date Dictated: 05/02/2019 Within 30 days and on chart.. 10:04:26 Pre-op teaching completed and patient verbalized understanding. 10:04:26 Pre-procedure instructions explained to patient. 10:04:28 Family unavailable. 10:04:29 Patient NPO since Midnight. 10:04:33 Patient allergic to No known allergies 10:05:00 Is patient on blood thinner?Yes 10:05:03 ACC The patient was administered the following blood thiners within the last 24 hours: ACCPlavix 10:05:06 Patient diabetic? No. 10:05:09 Previous problem with sedation/anesthesia? No ? 10:05:10 Snore? Yes 10:05:11 Sleep apnea? No 10:05:12 Opens mouth fully? Yes 10:05:12 Deviated septum? No 10:05:13 Sticks out tongue? Yes 10:05:14 Airway obstruction? No ? 10:05:17 Dentures? Yes out 10:05:19 Pre procedure: right dorsailis pedis pulse 1+ Palpable, but thready & weak; easily obliterated 10:05:21 Modified Venkatesh's test Ulnar < 7 seconds 10:05:24 Patient pain scale 0/10 ?. 10:05:41 IV patent on arrival in left forearm with 0.9% NaCl at [facility]. 10:06:08 Lab Result : Hemoglobin 11.8 g/dl 10:06:08 Lab Result : Hematocrit 35.3 % 10:06:08 Lab Result : BUN 15 mg/dl 10:06:08 Lab Result : Creatinine 1.1 mg/dl 10:06:10 Lab results completed and on chart. 10:06:13 Right Radial & Right Groin area was prepped with chlora-prep and draped in sterile fashion 10:06:15 Alarms reviewed by R. N. 10:06:16 Sharps counted by scrub and verified by R.N. 10:06:18 Use device set Radial Dx or PCI 10:06:18 ACIST Syringe (48873) opened to sterile field. 10:06:19 Bag Decanter (2002S) opened to sterile field. 10:06:19 Medline Cath Pack ([id number]) opened to sterile field. 10:06:20 Tegaderm 4 x 4 (1626W) opened to sterile field. 10:06:20 ACIST Manifold (68207) opened to sterile field. 10:06:20 ACIST Hand Control (83180) opened to sterile field. 10:06:21 MBrace Wrist Support ([id number]) opened to sterile field. 10:06:22 NEEDLE Cook 21G 4cm Radial (L38548) opened to sterile field. 10:06:23 SHEATH 6FR RAIN (1544400) opened to sterile field. 10:06:24 EMERALD Guide Wire (958-255) opened to sterile field. 10:07:25 Patient Weight : 198.42 lbs 10:13:39 Quick Combo opened to sterile field. 10:13:44 Quick combo pads placed on patients chest and back. 10:13:51 Zero performed for pressure channel P1 10:14:44 Physician arrived 10:14:45 Final Timeout: patient, procedure, and site verified with staff and physician. All members of the team are in agreement. 10:14:45 --------ALL STOP TIME OUT------ 10:14:47 Right Radial & Right Groin site verified by team. 10:14:50 Fire Safety Assessment: A--An alcohol-based skin anteseptic being used preoperatively., C--Open oxygen or nitrous oxide is being used., D--An ESU, laser, or fiber-optic light is being used. 10:14:57 Physical assessment completed. ASA score P 3 - A patient with severe systemic disease as per Berto Tapia MD. 10:15:01 2) 60-89 Mildly reduced kidney function, and other findings (as for stage 1) point to kidney disease. 10:15:03 Maximum allowable contrast does (3.7 X eGFR X 0.75)199 ml. 10:15:06 Sedation plan: IV Moderate Sedation Medication:Versed, Fentanyl 10:15:42 [place] Nightmute Eagleye IVUS Catheter (97387M) opened to sterile field. 10:16:29 Procedure started. 10:16:32 Local anesthetic to right radial artery with Lidocaine 2% by Berto Tapia MD.INITIAL ACCESS ONLY 10:16:39 Versed 1 mg I.V. was administered by Karen Godoy RN; for sedation; 10:16:46 A 6 Fr Short sheath was inserted into the Right Radial artery 10:16:47 Fentanyl 50 mcg I.V. was administered by Karen Godoy RN; for sedation; 10:16:48 Zero performed for pressure channel P1 10:18:06 Radial Cocktail (Verapamil 2mg/Nitro 400mcg/Heparin 1500units) 1 syringe I.A. was administered by Berto Tapia MD; for vasodilation; 10:18:26 A DIAGNOSTIC [place] 110cm 5 Fr catheter (167806) was advanced over the wire and used for Procedure. 10:18:45 LV gram done using AGUILAR 10:18:49 Injector settings: Ml/sec: 5, Volume: 15, 10:18:50 LV hemodynamics recorded. 10:19:07 EF : 25 % 10:20:00 LCA angiography performed. 10:21:05 RCA angiography performed. 10:22:56 Catheter exchanged over wire. 10:23:06 A DIAGNOSTIC AR2 MOD 5 Fr catheter (296788H) was advanced over the wire and used for Procedure. 10:23:09 RCA angiography performed. 10:23:28 Catheter exchanged over wire. 10:23:33 GUIDE 6FR XBLAD 4.0 catheter ([id number]) opened to sterile field. 10:23:39 GUIDE 6FR AR 2.0 catheter (FO8YQ01) opened to sterile field. 10:23:42 INFLATOR Merit BasixCompak (GT1381) opened to sterile field. 10:23:52 6 Fr ar 2 guide catheter was inserted over the wire 10:23:55 FFR/IFR wire advanced. 10:24:03 Fentanyl 25 mcg I.V. was administered by Karen Godoy RN; for sedation; 10::31 Wire advanced across lesion. 10:26:57 mRCA lesion measured at 0.95 with IFR 10:27:02 Wire removed. 10:27:17 Guide Catheter removed. 10:27:28 6 Fr XBLAD 4 guide catheter was inserted over the wire 10:27:33 FFR/IFR wire advanced. 10:28:53 Wire advanced across lesion. 10:30:12 Pre PCI Site: [place] pCirc has 80% stenosis. 10:30:54 pCirc lesion measured at 0.95 with IFR 10:30:57 Wire removed. 10:31:42 [place] Verrata Plus pressure wire (56702U) opened to sterile field. 10:32:23 Heparin Bolus 4000 units I.V. was administered by Karen Godoy RN; for anticoagulation; Verified with dr tapia 10:34:22 IVUS catheter advanced over wire. 10:34:24 IVUS pass to Circ lesion performed. 10:34:26 IVUS catheter removed over wire. 10:36:04 Place stent Inflation Number: 1 A COBRA RX 4.0 X 15 Stent was prepped and advanced across the Prox CX 80. The stent was deployed at 15 HUMZA for 0:10 (min:sec) 0. 10:36:18 Post PCI Site: [place] pCirc has 0% stenosis. 10:37:26 Wire removed. 10:37:27 Guide catheter removed. 10:37:33 TR BAND Standard (SIM42EFT) opened to sterile field. 10:37:39 Sheath removed intact; hemostasis achieved with Mechanical Compression to the Right Radial artery. 10:37:41 Procedure ended.(Physican Out) 10:38:52 Fluoroscopy time 05.40 minutes. 10:38:57 Fluoroscopy dose: 487.46 mGy 10:38:57 Flurop Dose total: 487.46 10:39:14 Contrast amount:Isovue 370 86ml. 10:39:15 Sharps counted by scrub and verified by R.N. 10:39:17 TR band inflated with 11cc of air. 10:39:18 Insertion/operative site no bleeding no hematoma. 10:39:22 Post right radial artery:stable, soft, clean and dry 10:39:23 Post Procedure Pulses reassessed and unchanged 10:39:25 Post-procedure physical assessment completed. ASA score P 2 - A patient with mild systemic disease as per Berto Tapia MD. 10:39:27 Post procedure rhythm: unchanged. 10:39:34 Estimated blood loss: 10 ml 10:39:35 Patient needs reinforcement of post procedure teaching. 10:39:35 Post procedure instruction explained to patient.Patient verbalizes understanding. 10:40:01 Procedure type changed to Cath procedure, Diagnostic procedure, LHC, LHC w/Coronaries, FFR/IVUS, FFR Initial, Intra-Coronary IVUS Initial, Sedation Charges, Moderate Sedation up to 15 minutes, PCI procedure, Coronary Stent, Coronary Stent Initial 10:40:46 Dobutamine (500mg/250ml D5W) 5 mcg/kg/min I.V. drip was administered by Karen Godoy RN; Per physician; 10:40:54 Plavix 75 mg P.O. was administered by Karen Godoy RN; for antiplatelet therapy; 10:41:34 Procedure and supply charges have been captured, reviewed, submitted and are correct. 10:41:36 Procedure Complication : No complications 10:41:38 See physician's report for complete and final results. 10:41:38 Vital chart was stopped 10:41:40 Report given to PCU. 10:41:42 Patient transfered to PCU with Stretcher. 10:41:43 Full Disclosure recording stopped 10:41:43 Procedure ended. 10:41:48 End room use (Document Last) Intervention Summary Intervention Notes Time ActionType Lesion and Equipment Action# Pressure Duration Attributes Used 10:36:04 Place stent Prox CX COBRA RX 1 15 00:10 4.0 X 15 Stent Device Usage Item Name Manufacture Quantity Catalog Hospital Part Current Minimal Lot# / Number Charge Number Stock Stock Serial# Code ACIST Syringe Acist 1 90334 421295 955472 100049 20 (54261) Medical Systems Inc Medline Cath Medline 1 [id number] 997529 97055 738960 5 Pack ([id number]) Bag Decanter Microtek 1 2001S 967329 51935 291123 5 (2001S) Medical Inc. ACIST Hand Acist 1 89015 432127 970913 445009 5 Control Medical (72868) Systems Inc ACIST Manifold Acist 1 73119 971323 698560 913508 5 (59310) Medical Systems Inc Tegaderm 4 x 4 3M 1 1626W 856725 435005 977917 5 (1626W) MBrace Wrist Advanced 1 140-0250-00 566252 64442 673706 5 Support Vascular (433229614) Dynamics NEEDLE Tor[employer] Labs [facility] 1 Q22524 090432 934120 426672 5 21G 4cm Radial (V80819) SHEATH 6FR Cardinal 1 1296607 730637 3508875 503258 5 RAIN (5556551) Health EMERALD Guide Cardinal 1 502-455 526820 986043 685099 5 Wire (502-455) GridCOM Technologieso RetailMeNot[employer] Inc. Systems 1 11091-755758 831998 610054 071232 5 DIAGNOSTIC Terumo 1 405013 931801 812750 830619 5 [place] 110cm 5 Fr catheter (140426) DIAGNOSTIC AR2 Cardinal 1 807637R 989077 878644 119736 20 MOD 5 Fr Health catheter (473418A) GUIDE 6FR Cardinal 1 32726484 958313 614526 659462 3 XBLAD 4.0 Health catheter (39936680) GUIDE 6FR AR Medtronic 1 UP8NQ61 293297 57663 506654 1 2.0 catheter (QL0BV11) INFLATOR Merit Merit 1 EF7305 672888 334251 908089 15 [facility] Medical (YX9026) [place] End[place]ott 1 58436Q 346522 508219 882194 8 [place] Eagleye IVUS Catheter (18594R) [place] End[place]ott 1 73988R 937662 236302557 073136 5 Verrata Plus pressure wire (16658V) COBRA RX 4.0 X Celonova 1 379-15-53382 471101 742596682 278719 4 [id number] 15 stent Biosciences (056-29-87163) TR BAND Terumo 1 LNB50-LBU 423487 313630 104762 40 Standard (KZB99GES) Signature Audit [place] Stage Time Signature Unsigned Intra-Procedure 05/03/2019 Hayes Nichols RT(R) 10:42:06 AM RT(R) 05/03/2019 10:46:10 AM Intra-Procedure 05/03/2019 Hayes Nichols 10:47:02 AM RT(R) Signatures Nurse : aKren Godoy RN Signature : Date : Time : Performing Physician : Signature : Berto Tapia MD Date : Time : Monitor : Hayes Nichols RT Signature : Date : Time : [facility] [address] [address]
[2019-05-02 12:16] LABS: BASOPHILS 0.2 % (0-2); HEMOGLOBIN 11.3 g/dL (13.5-17.5); IMMATURE GRANULOCYTES 0.2 % (0-5); LYMPHOCYTES 11.4 % (15-50); MCH 29.7 pg (26.0-34.0); MCHC 33.2 g/dL (31.0-37.0); MCV 89.2 fL (80.0-100.0); MEAN PLATELET VOLUME 9.9 fL (7.4-10.4); MONOCYTES 9.9 % (2-11); NEUTROPHILS 76.3 % (40-80); PLATELET COUNT 195 10x3/uL (130-400); RBC 3.81 10x6/uL (4.20-6.10); RDW 14.1 % (11.5-14.5); WBC 5.5 10x3/uL (4.8-10.8)
[2019-05-02 12:35] LABS: INR 1.08 (0.85-1.17); PROTIME 13.5 SECONDS (11.6-15.0)
[2019-05-02 12:38] LABS: ALBUMIN 3.6 g/dL (3.4-5.0); ALKALINE PHOSPHATASE 82 U/L (46-116); ALT (SGPT) 39 U/L (10-68); BILIRUBIN - TOTAL 0.87 mg/dL (0.2-1.3); CALC OSMOLALITY 285 mosm/kg (275-300); CALCIUM 8.6 mg/dL (8.5-10.1); CARBON DIOXIDE 28.5 mmol/L (21.0-32.0); CHLORIDE - SERUM 105 mmol/L (98-107); CREATININE - SERUM 1.2 mg/dL (0.6-1.3); GLUCOSE 153 mg/dL (74-106); SODIUM 141 mmol/L (136-145); UREA NITROGEN 17 mg/dL (7-18); eGFR NON AFRICAN AMERICAN 65 mL/min (90-120)
[2019-05-02 12:54] LABS: CKMB 3.3 U/L (0.0-3.6); CREATINE KINASE 132 UL (21-232); PRO BNP 11997 pg/mL (0-125)
[2019-05-02 12:57] LABS: TROPONIN-I 0.062 ng/mL (0.000-0.060)
[2019-05-02 18:08] VITALS: BP 139/91
--- NOTE | 2019-05-02 18:39 | HP ---
PATIENT: IVA SHI MEDICAL RECORD: [id number] ACCOUNT: [id number] LOCATION:[address] : [birth year] ADMISSION DATE: 05/02/19 PCP: No PCP HISTORY AND PHYSICAL EXAMINATION DIAGNOSES: 1. Non-Q-wave myocardial infarction. 2. Coronary artery disease. 3. Angina. 4. Shortness of breath and dyspnea on exertion. 5. Congestive heart failure with chronic systolic dysfunction. 6. Ischemic cardiomyopathy. 7. Hypertension. 8. Abnormal ECG. HISTORY: Mr. Shi presents with 2 weeks of increasing episodes of shortness of breath and chest discomfort. He does have a history of cardiomyopathy with ejection fraction in the 35% range. His troponin is elevated. His EKG has T wave inversions in the lateral leads. PHYSICAL EXAMINATION: GENERAL APPEARANCE: Well-nourished, well-developed, appears stated age. Level of distress, comfortable. PSYCHIATRIC: Mental status, alert, normal affect. Orientation, oriented to time, place and person. EYES: Lids and conjunctiva, noninjected. No discharge, no pallor. ENT: Lips, teeth, gums, normal dentition. Oropharynx, no cyanosis, no pallor. NECK: Carotid arteries, bilateral normal upstroke, no bruits, no thrills. JUGULAR VEINS: No jugular venous pressure or distention. CERVICAL LYMPH NODES: Nontender, nonenlarged. THYROID: Not enlarged. Nontender. No nodules. LUNGS: Respiratory effort, unlabored. CHEST: Normal curvature. No thoracic deformity. No chest wall tenderness. Percussion, resonant. Auscultation, clear. No wheezes, no rales, no rhonchi. CARDIOVASCULAR: Precordial exam, nondisplaced. No heaves or pericardial thrills. Rate and rhythm, regular. Heart sounds, normal S1, normal S2. No S3, no gallop, no rub. Systolic murmur, not heard. Diastolic murmur, not heard. EXTREMITIES: No cyanosis, no edema. Peripheral pulses, full and equal in all extremities, except as noted. No bruits appreciated. ABDOMEN: Soft, nondistended. Normal aorta. No bruit. Nontender. No masses. Liver, nontender, no hepatomegaly. Spleen, nontender, no splenomegaly. MUSCULOSKELETAL: No joint tenderness. No joint swelling. No erythema. NEUROLOGICAL: Normal gait, normal strength, normal tone. SKIN: Warm and dry. OVERALL IMPRESSION: Congestive heart failure and pulmonary edema. At this time, we will use IV Lasix to clear the pulmonary edema. Start him on Coreg 12.5 b.i.d. Continue his lisinopril. Load him with Plavix. Continue the aspirin. Plan for cardiac catheterization. TRANSINT:[id number] Voice Confirmation ID: [id number] DOCUMENT ID: [id number] HISTORY AND PHYSICAL [id number] VINOD,CINTHIA VAZQUEZ MD at 1839 CC: [id number] DICTATION DATE: 05/02/19 1551 NOZZLE OPERATOR: 05/02/19 1610 ADM IN [facility] [address] [place] [id number]
--- NOTE | 2019-05-02 19:32 | NUR ---
PATIENT ARRIVED VIA STRETCHER FROM ER. PATIENT IS ALERT AND ORIENTED, RESPIRATIONS ARE EVEN AND UNLABORED. NO S/S OF DISTRESS. NO C/O PAIN. CALL LIGHT WITHIN REACH. WILL CPOC.
[2019-05-02 19:41] LABS: CKMB 3.1 U/L (0.0-3.6); CREATINE KINASE 117 UL (21-232)
[2019-05-02 19:42] LABS: TROPONIN-I 0.066 ng/mL (0.000-0.060)
--- NOTE | 2019-05-02 19:45 | MORECARE ---
CASE MANAGEMENT DISCHARGE SUMMARY PATIENT: IVA BROCK UNIT: [id number] ADM DATE: 05/02/19 AGE: 63 : 59 SEX: M ROOM/BED: D.2770 AUTHOR: CARA,DOC PHYSICIAN: REFERRING PHYSICIAN: MALINDA FELIX MD DATE OF SERVICE: 05/02/19 Discharge Plan Patient Name: IVA BROCK Facility: [facility]:[place] : 1955 Planned Disposition: Home Anticipated Discharge Date: 05/04/19 Discharge Date: Expected LOS: 2 Initial Reviewer: [email or web address] Initial Review Date: 05/02/2019 Generated: 05/02/19 8:45 pm DCP- Discharge Planning Updated by [email or web address]: Valerie Villegas on 05/02/19 6:[address] Patient Name: IVA BROCK Admission Status: ER Accout number: [id number] Admission Date: 05-02-2019 : 1955 Admission Diagnosis: Attending: MALINDA FELIX Current LOS: 1 Anticipated DC Date: 05-04-2019 Planned Disposition: Home Primary Insurance: MEDICAID [place] Discharge Planning Comments: CM met with patient to complete initial dc planning assessment. CM educated patient on the CM role and verbal consent given by patient to complete assessment. CM verified patient's address, phone number, and emergency contact phone numbers. Patient lives at home alone and reports he is independent at home. At discharge patient plans to return home alone and feels this is a safe discharge. CM discussed availability of home health, rehab services, and medical equipment Patient denied known discharge needs at this time. Patient reports he will call someone to transport him home at time of discharge. CM will continue to follow and will assist as needed with dc plans/needs. Recyclable Materials Collector: Valerie Villegas RN, [facility] DCPIA - Discharge Planning Initial Assessment Updated by [email or web address]: Valerie Villegas on 05/02/19 7:40 pm * Is the patient Alert and Oriented? Yes * How many steps to enter\exit or inside your home? none * PCP No PCP * Pharmacy [facility] * Preadmission Environment Home Alone * ADLs Independent * Equipment None * List name and contact numbers for known caregivers / representatives who currently or will assist patient after discharge: Aria Gay - [phone] * Verbal permission to speak to the caregivers and representatives has been obtained from the patient. Yes * Community resources currently utilized None * Additional services required to return to the preadmission environment? No * Can the patient safely return to the preadmission environment? Yes * Has this patient been hospitalized within the prior 30 days at any hospital? No Patient Name: IVA BROCK Page [id number] at 1945 All edits/amendments must be made on the electronic document DICTATION DATE: 05/02/191943 FOOD AND BEVERAGE CONTROLLER: MACARENA 05/02/191943 RPT#: [id number] SD DATE: STATUS: ADM IN [facility] [address] [place] [address] END OF REPORT
[2019-05-02 20:00] VITALS: BP 99/57
--- NOTE | 2019-05-02 21:50 | NUR ---
PATIENT REQUESTED BREATHING TX. CALLED RT. BY THE TIME RT GOT TO ROOM PATIENT HAD USED HIS OWN INHALED. RT INFORMED NURSE. 15 MINUTES LATER PATIENT REQUESTING ANOTHER BREATHING TREATMENT. PATIENT HAVING NO S/S OF DISTRESS. O2 WITH 2L NC 96.
--- NOTE | 2019-05-02 22:41 | NUR ---
PATIENT CALLED RN TO ROOM. PATIENT UPSET THAT HE WAS NOT GIVEN THE BREATHING TREATMENT THAT HE REQUESTED. EXPLAINED TO PATIENT CYRUS RT EXPLAINED TO ME. PATIENT CALLED ME AN ASSHOLE. TOLD ME THAT HE WILL HAVE MY BADGE AND ATTEMPTED TO THROW HIS INHALER IN MY DIRECTION. RT NOTIFIED THAT PATIENT WANTS HIS BREATING TREATMENT.
--- NOTE | 2019-05-02 22:53 | NUR ---
PATIENT CAME TO FLOOR AND BREATHING TREATMENT GIVEN.
[2019-05-02 23:44] VITALS: BP 99/57; BMI 27.3
[2019-05-03 00:11] LABS: CREATINE KINASE 133 UL (21-232); TROPONIN-I 0.049 ng/mL (0.000-0.060)
[2019-05-03 00:18] VITALS: BP 127/72
[2019-05-03 04:00] VITALS: BP 140/78
[2019-05-03 06:05] LABS: BASOPHILS 0.4 % (0-2); EOSINOPHILS 1.9 % (0-7); HEMATOCRIT 35.3 % (42.0-54.0); HEMOGLOBIN 11.8 g/dL (13.5-17.5); IMMATURE GRANULOCYTES 0.2 % (0-5); LYMPHOCYTES 16.3 % (15-50); MCH 29.5 pg (26.0-34.0); MCHC 33.4 g/dL (31.0-37.0); MCV 88.3 fL (80.0-100.0); MEAN PLATELET VOLUME 10.3 fL (7.4-10.4); MONOCYTES 13.3 % (2-11); NEUTROPHILS 67.9 % (40-80); PLATELET COUNT 210 10x3/uL (130-400); RDW 13.9 % (11.5-14.5); WBC 4.8 10x3/uL (4.8-10.8)
[2019-05-03 06:47] LABS: ALBUMIN 3.6 g/dL (3.4-5.0); ALKALINE PHOSPHATASE 86 U/L (46-116); ALT (SGPT) 38 U/L (10-68); CALC OSMOLALITY 285 mosm/kg (275-300); CALCIUM 8.2 mg/dL (8.5-10.1); CARBON DIOXIDE 32.7 mmol/L (21.0-32.0); CHLORIDE - SERUM 104 mmol/L (98-107); CKMB 3.5 U/L (0.0-3.6); CREATINE KINASE 123 UL (21-232); CREATININE - SERUM 1.1 mg/dL (0.6-1.3); POTASSIUM - SERUM 3.4 mmol/L (3.5-5.1); PROTEIN - SERUM 7.1 g/dL (6.4-8.2); SODIUM 143 mmol/L (136-145); TROPONIN-I 0.058 ng/mL (0.000-0.060); UREA NITROGEN 15 mg/dL (7-18); eGFR NON AFRICAN AMERICAN 72 mL/min (90-120)
[2019-05-03 06:49] LABS: GLUCOSE 104 mg/dL (74-106)
--- NOTE | 2019-05-03 07:44 | NUR ---
PT RESTING IN BED WITH EYES OPEN ALERT AND ORIENTED. PT SOB WITH A NON-PRODUCTIVE COUGH. PT RUNNING 67 SINUS WITH BUNDLE BRANCH BLOCK AND PVC'S. PT DENIES ANY PAIN AT THIS TIME. WATING ON CARDIAC CONSULT. BED LOW CALL LIGHT WITHIN REACH. WILL CONTINUE TO MONITOR.
--- NOTE | 2019-05-03 08:45 | NUR ---
PT GETTING UPSET THAT NOBODY HAS BEEN IN. PT IS NPO AND WAITING FOR CARDIAC CONSULT. WILL CONTINUE TO MONITOR.
[2019-05-03 12:00] VITALS: BP 120/66
[2019-05-03 12:29] VITALS: Ht 182.9 cm; Wt 90.9 kg
[2019-05-03 15:45] VITALS: BP 106/64
--- NOTE | 2019-05-03 17:37 | NUR ---
POST HC TODAY. RIGHT WRIST STABLE WITHOUT BLEEDING OR HEMATOMA NOTED. RESP UL ON . DOBUTREX GTT INFUSING. TELEMETRY SR. CALL LIGHT IN REACH.
--- NOTE | 2019-05-03 19:30 | NUR ---
ASSESSMENT COMPLETE, PT A&O. RESPERATIONS NON LABORED ON O2 AT 3 LITERS VIA NC. IV TO RIGHT FOREARM WITH DOBUTAMINE INFUSING AT (5MCG/KILO) 13.5 CC/HR, IV SITE CLEAN AND DRY. DRSG TO RIGHT WRIST C/D/I FROM CARDIAC CATH THAT WAS DONE EARLIER TODAY. NO SWELLING, BLEEDING OR HEMATOMA NOTED. PT CURRETLY DENIES PAIN OR NEEDS. BED LOW, CL IN REACH.
[2019-05-03 20:00] VITALS: BP 91/54
--- NOTE | 2019-05-03 21:58 | NUR ---
PT CAME OUT OF HIS ROOM NAKED YELLING FOR SOMEONE TO BRING HIM SOME ICE CREAM, TOOK PT ICE CREAM AND INFORMED HIM TO USE HIS CALL LIGHT WHEN NEEDING ASSISTANCE AND TO PLEASE NOT YELL OUT INTO THE [address] WAY.
[2019-05-04] VITALS: BP 98/56
--- NOTE | 2019-05-04 02:36 | NUR ---
RESTING WITH EYES CLOSED, RESPERATIONS EVEN, NO S/S DISTRESS NOTED.
[2019-05-04 04:00] VITALS: BP 105/62
--- NOTE | 2019-05-04 04:53 | NUR ---
ASBESTOS REMOVAL WORKER AT BED SIDE, PT UP TO SHOWER, LINENS CHANGED.
[2019-05-04 07:00] LABS: BASOPHILS 0.3 % (0-2); EOSINOPHILS 2.7 % (0-7); HEMATOCRIT 33.4 % (42.0-54.0); HEMOGLOBIN 11.1 g/dL (13.5-17.5); LYMPHOCYTES 18.7 % (15-50); MCH 29.4 pg (26.0-34.0); MCHC 33.2 g/dL (31.0-37.0); MCV 88.6 fL (80.0-100.0); MEAN PLATELET VOLUME 10.7 fL (7.4-10.4); MONOCYTES 12.2 % (2-11); NEUTROPHILS 66.1 % (40-80); PLATELET COUNT 207 10x3/uL (130-400); RBC 3.77 10x6/uL (4.20-6.10); WBC 3.7 10x3/uL (4.8-10.8)
[2019-05-04 07:20] LABS: ANION GAP 9.5 mmol/L (8-16); CALCIUM 8.1 mg/dL (8.5-10.1); CARBON DIOXIDE 32.2 mmol/L (21.0-32.0); CREATININE - SERUM 1.2 mg/dL (0.6-1.3); POTASSIUM - SERUM 3.7 mmol/L (3.5-5.1)
--- NOTE | 2019-05-04 07:36 | NUR ---
RECIEVED REPORT. PT LYING ON RIGHT SIDE CALL LIGHT IN REACH. NO DISTRESS NOTED. PT ON 3L NC. DOBUTAMINE INFUSING AT 13.5 ML/HR VIA R FA PIV. RESPIRATIONS EVEN AND UNLABORED. PT HAS NO NEEDS AT THIS TIME. WILL CTM
[2019-05-04 09:55] VITALS: BP 113/58
[2019-05-04 12:03] LABS: UDS - AMPHET NEGATIVE QUAL (NEGATIVE); UDS - BARB NEGATIVE QUAL (NEGATIVE); UDS - BENZO NEGATIVE QUAL (NEGATIVE); UDS - COCAINE NEGATIVE QUAL (NEGATIVE); UDS - OPIATE NEGATIVE QUAL (NEGATIVE); UDS - PCP NEGATIVE QUAL (NEGATIVE); UDS - THC POSITIVE QUAL (NEGATIVE)
[2019-05-04 12:13] LABS: APPEARANCE CLEAR (CLEAR); BILIRUBIN NEGATIVE (NEGATIVE); COLOR YELLOW (YELLOW); GLUCOSE NEGATIVE (NEGATIVE); KETONE NEGATIVE (NEGATIVE); NITRITE NEGATIVE (NEGATIVE); PROTEIN NEGATIVE (NEGATIVE)
[2019-05-04 12:53] VITALS: BP 110/62
--- NOTE | 2019-05-04 16:33 | NUR ---
I have reviewed this patient and I concur with the Shift Assessment completed by the Licensed Practical Nurse today this shift.
[2019-05-04 16:44] VITALS: BP 126/66
[2019-05-04 20:00] VITALS: BP 127/80
--- NOTE | 2019-05-04 23:46 | NUR ---
PT ASKED TO SPEAK WITH [facility] BECAUSE HE NOTICED THAT HE WAS MISSING $300.00 FROM HIS [place], PT STATED THAT IS HAD TO HAVE GONE MISSING AT 0400 THIS MORNING WHEN HE GOT UP TO TAKE A SHOWER. NOTIFIED STAR CURIEL. FRANCINE WALLACE. [place] SUPP SAID TO NOTIFY SECURITY SO THAT A REPORT CAN BE MADE. SECURITY AT PTS BED SIDE ON 05/05/19 AT 0010, PT TOLD OUTPATIENT PHYSICAL THERAPIST ASSISTANT "FORGET THE REPORT BECAUSE ILL NEVER GET MY MONEY BACK ANY WAY"
[2019-05-05] VITALS: BP 132/76
[2019-05-05 04:00] VITALS: BP 118/67
[2019-05-05 05:58] LABS: BASOPHILS 0.4 % (0-2); EOSINOPHILS 2.3 % (0-7); HEMATOCRIT 34.7 % (42.0-54.0); HEMOGLOBIN 11.8 g/dL (13.5-17.5); IMMATURE GRANULOCYTES 0.2 % (0-5); MCH 29.8 pg (26.0-34.0); MCV 87.6 fL (80.0-100.0); MEAN PLATELET VOLUME 10.2 fL (7.4-10.4); MONOCYTES 15.7 % (2-11); NEUTROPHILS 64.4 % (40-80); PLATELET COUNT 223 10x3/uL (130-400); RBC 3.96 10x6/uL (4.20-6.10); RDW 13.9 % (11.5-14.5)
[2019-05-05 06:06] LABS: WBC 5.2 10x3/uL (4.8-10.8)
[2019-05-05 06:13] LABS: CALC OSMOLALITY 285 mosm/kg (275-300); CALCIUM 8.2 mg/dL (8.5-10.1); CARBON DIOXIDE 36.1 mmol/L (21.0-32.0); CHLORIDE - SERUM 103 mmol/L (98-107); POTASSIUM - SERUM 3.4 mmol/L (3.5-5.1); SODIUM 143 mmol/L (136-145); UREA NITROGEN 18 mg/dL (7-18); eGFR NON AFRICAN AMERICAN 81 mL/min (90-120)
[2019-05-05 06:29] LABS: GLUCOSE 81 mg/dL (74-106)
[2019-05-05 08:22] VITALS: BP 122/58
[2019-05-05] MEDS ORDERED: COREG12.5 MG PO (10:18)
[2019-05-05] MEDS ORDERED: PLAVIX75 MG PO (10:18)
[2019-05-05] MEDS ORDERED: LASIX40 MG PO (10:19)
--- NOTE | 2019-05-05 12:04 | NUR ---
5.3 SEC PAUSE NOTED ON TELEMETRY. ANNABELLE BALBUENA AND DR ROCK NOTIFIED. WILL MONITOR.
[2019-05-05 13:22] VITALS: BP 103/51
[2019-05-05 17:31] VITALS: BP 115/70
--- NOTE | 2019-05-05 19:21 | NUR ---
RESUMING PATIENT CARE. PATIENT IS ALERT AND ORIENTED. RESPIRATIONS ARE EVEN AND UNLABORED. NO S/S OF DISTRESS. NO C/O PAIN. CALL LIGHT WITHIN REACH. WILL CPOC.
[2019-05-05 20:00] VITALS: BP 127/70
[2019-05-06] VITALS: BP 114/56
[2019-05-06 04:00] VITALS: BP 133/66
[2019-05-06 05:32] LABS: BASOPHILS 0.9 % (0-2); EOSINOPHILS 2.4 % (0-7); HEMATOCRIT 39.6 % (42.0-54.0); HEMOGLOBIN 13.1 g/dL (13.5-17.5); IMMATURE GRANULOCYTES 0.2 % (0-5); LYMPHOCYTES 16.2 % (15-50); MCH 29.4 pg (26.0-34.0); MCHC 33.1 g/dL (31.0-37.0); MCV 88.8 fL (80.0-100.0); MEAN PLATELET VOLUME 10.8 fL (7.4-10.4); MONOCYTES 14.4 % (2-11); NEUTROPHILS 65.9 % (40-80); PLATELET COUNT 225 10x3/uL (130-400); RBC 4.46 10x6/uL (4.20-6.10); RDW 14.1 % (11.5-14.5); WBC 4.5 10x3/uL (4.8-10.8)
[2019-05-06 05:42] LABS: ANION GAP 9.7 mmol/L (8-16); CALCIUM 8.6 mg/dL (8.5-10.1); CREATININE - SERUM 1.1 mg/dL (0.6-1.3); POTASSIUM - SERUM 3.7 mmol/L (3.5-5.1)
--- NOTE | 2019-05-06 09:25 | NUR ---
OK TO GO HOME PER DR. ROCK. ANNABELLE BALBUENA NOTIFIED. WILL CONT. PLAN OF CARE.
[2019-05-06 09:49] VITALS: BP 106/57
--- NOTE | 2019-05-06 11:01 | NUR ---
IV AND TELEMETRY DCD. DC PLANS GIVEN. UNDERSTANDING VOICED.
--- NOTE | 2019-05-06 16:51 | OP ---
PATIENT NAME: IVA BROCK MEDICAL RECORD: [id number] :[birth year] LOCATION:D.M2 D.2120 ADMISSION DATE:05/02/19 SURGEON: CINTHIA ROCK MD DATE OF OPERATION: 05/03/2019 PROCEDURES: 1. PTCA stent left circumflex. 2. Intravascular ultrasound of left circumflex. 3. IFR left circumflex. 4. IFR RCA. 5. Left heart catheterization. 6. Selective coronary angiography. 7. Left ventriculogram. INDICATION: Non-Q-wave myocardial infarction. PROCEDURE IN DETAIL: After informed consent was obtained and after a detailed description of risks, benefits as well as alternative therapies, the patient elected to proceed with angiogram and angioplasty. The right radial area was prepped and draped in normal sterile fashion. Right radial artery was cannulated via modified Seldinger technique with placement of 6-Danish sheath. All catheters exchanged through this sheath. FINDINGS: The left ventriculogram was performed in standard 30-degree AGUILAR view reveals ejection fraction in the 25% range. SELECTIVE CORONARY ANGIOGRAPHY: 1. Left main is with no significant angiographic disease. 2. Left anterior descending is with no significant angiographic disease. 3. The right coronary artery has a questionable stenosis in mid vessel; however, IFR was normal. 4. The left circumflex has an 80% stenosis in the mid vessel confirmed by intravascular ultrasound. IFR was normal, but the patient had a non-Q-wave myocardial infarction, has T-wave inversions in the lateral leads. This is clearly responsible for the myocardial infarction, hence decision was made to proceed with stenting. Stenting was undertaken with a 4.0 x 15 Cobra stent. Result was 0% residual stenosis. OVERALL IMPRESSION: Successful percutaneous transluminal angioplasty stent of the left circumflex going from 80% initial stenosis to 0% residual. TRANSINT:[id number] Voice Confirmation ID: [id number] DOCUMENT ID: [id number] CINTHIA ROCK MD at 1657 CC: [id number] DICTATION DATE: 05/03/19 1042 BUSINESS INTELLIGENCE DIRECTOR: 05/03/19 1049 DIS IN 05/06/19 [place] [address]
--- NOTE | 2019-05-06 16:51 | EC ---
PATIENT:IVA BROCK DATE OF SERVICE: 05/02/19 SEX: M MEDICAL RECORD: [id number] DATE OF : [birth year] LOCATION:D. D.212 AGE OF PATIENT: 63 ADMISSION DATE: 05/02/19 REFERRING PHYSICIAN: INTERPRETING PHYSICIAN: CINTHIA TAPIA MD ECHOCARDIOGRAM REPORT ECHO CHARGES 4 ECHO COMPLETE Date: 05/03/19 CLINICAL DIAGNOSIS: ECHOCARDIOGRAPHIC MEASUREMENTS (adult normal given) AC root (d.<3.7cm) 2.9 cm LV Septum d (<1.2 cm> 1.3 cm Valve Excursion 1.8 cm LV Septum (systole) 1.4 cm Left Atria (s.<4.0cm> 4.2 cm LVPW d(<1.2cm) 1.2 cm RV (d.<2.3cm) 3.6 cm LVPW (sytole) 1.8 cm LV diastole(<5.6CM) 7.4 cm MV E-F(>70mm/sec) cm LV systole 6.0 cm LVOT Diameter 2.1 cm MV exc.(>10mm) cm Est.ejection fraction (50-75%) % DOPPLER: LVIT cm/sec A 73 cm/sec E 68 cm/sec LA cm/sec RVSP 36.8 mmHg LVOT 89 cm/sec AOP1/2T m/s Asc. Ao 115 cm/sec RVOT 56 cm/sec RA cm/sec PA 74 cm/sec AV Gradient Peak 5.3 mmHg AV Mean 3.6 mmHg AV Area 2.3 cm MV Gradient Peak 3.6 mmHg MV Mean 1.4 mmHg MV Area cm COMMENTS: Plastering Contractor: Leigha KO Living Skills Advisor: Ana Paula Tapia TAPE# PACS Pericardial Effusion N DATE OF SERVICE: 05/03/2019 ECHOCARDIOGRAM DATE OF SERVICE: 05/03/2019 FINDINGS: 1. Left ventricular chamber size is dilated. Left ventricular systolic function is markedly reduced at 20%. 2. Left atrium is enlarged at 4.2 cm. Right atrium and right ventricular ECHOCARDIOGRAM REPORT [id number] IVA BROCK chamber sizes are as well mildly dilated. 3. Valvular structures have normal structure and motion. 4. Doppler interrogation reveals mild mitral regurgitation, [id number] tricuspid regurgitation, no other valvular insufficiency or stenosis. Pulmonary systolic pressure is estimated at 37 mmHg. 5. No evidence of pericardial effusion or left ventricular thrombus. TRANSINT:[id number] Voice Confirmation ID: [id number] DOCUMENT ID: [id number] CINTHIA TAPIA MD at 1651 CC: [id number] DICTATION DATE: 05/04/19 1149 MARKETING GRAPHICS SPECIALIST: 05/04/19 1201 DIS IN 05/06/19 [facility] [address] [id number]
--- NOTE | 2019-05-09 09:18 | MORECARE ---
CASE MANAGEMENT DISCHARGE SUMMARY PATIENT: IVA BROCK UNIT: [id number] ADM DATE: 05/02/19 AGE: 63 : 59 SEX: M ROOM/BED: D.0060 AUTHOR: CARA,DOC PHYSICIAN: REFERRING PHYSICIAN: MALINDA FELIX MD DATE OF SERVICE: 05/09/19 Discharge Plan Patient Name: IVA BROCK Facility: [facility]:[place] : 1955 Planned Disposition: Home Anticipated Discharge Date: 05/06/19 Discharge Date: 05/06/2019 Expected LOS: 4 Initial Reviewer: [email or web address] Initial Review Date: 05/02/2019 Generated: 05/09/19 10:17 am DCP- Discharge Planning Updated by [email or web address]: Valerie Villegas on 05/02/19 6:[address] Patient Name: IVA BROCK Admission Status: ER Accout number: [id number] Admission Date: 05-02-2019 : 1955 Admission Diagnosis: Attending: MALINDA FELIX Current LOS: 1 Anticipated DC Date: 05-04-2019 Planned Disposition: Home Primary Insurance: MEDICAID [place] Discharge Planning Comments: CM met with patient to complete initial dc planning assessment. CM educated patient on the CM role and verbal consent given by patient to complete assessment. CM verified patient's address, phone number, and emergency contact phone numbers. Patient lives at home alone and reports he is independent at home. At discharge patient plans to return home alone and feels this is a safe discharge. CM discussed availability of home health, rehab services, and medical equipment Patient denied known discharge needs at this time. Patient reports he will call someone to transport him home at time of discharge. CM will continue to follow and will assist as needed with dc plans/needs. Senior Internal Auditor: Valerie Villegas RN, [facility] DCPIA - Discharge Planning Initial Assessment Updated by [email or web address]: Valerie Villegas on 05/02/19 7:40 pm * Is the patient Alert and Oriented? Yes * How many steps to enter\exit or inside your home? none * PCP No PCP * [facility] * Preadmission Environment Home Alone * ADLs Independent * Equipment None * List name and contact numbers for known caregivers / representatives who currently or will assist patient after discharge: Aria Kisert - [phone] * Verbal permission to speak to the caregivers and representatives has been obtained from the patient. Yes * Community resources currently utilized None * Additional services required to return to the preadmission environment? No * Can the patient safely return to the preadmission environment? Yes * Has this patient been hospitalized within the prior 30 days at any hospital? No Last DP export: 05/02/19 6:45 p Patient Name: IVA BROCK Page 66791 at 0918 All edits/amendments must be made on the electronic document DICTATION DATE: 05/09/19916 MICROBIOLOGY MANAGER: MACARENA 05/09/19916 RPT#: [id number] DC DATE:05/06/19 STATUS: DIS IN [facility] [address] [place] [address] END OF REPORT
== END 2019-05-06 11:02 | disposition home or self-care (01) | DRG 248 ==
LOC: D.ER 11:37 → D.M2 18:24
PROVIDERS: Family Medicine; Internal Medicine Interventional Cardiology; ADMIT Internal Medicine Nephrology; ATTEND Internal Medicine Nephrology
PROC: B2111ZZ Fluoroscopy of Multiple Coronary Arteries using Low Osmolar Contrast (ICD-10-PCS; 2019-05-03)
PROC: B2151ZZ Fluoroscopy of Left Heart using Low Osmolar Contrast (ICD-10-PCS; 2019-05-03)
PROC: 4A033BC Measurement of Arterial Pressure, Coronary, Percutaneous Approach (ICD-10-PCS; 2019-05-03)
PROC: B240ZZ3 Ultrasonography of Single Coronary Artery, Intravascular (ICD-10-PCS; 2019-05-03)
PROC: 02703DZ Dilation of Coronary Artery, One Artery with Intraluminal Device, Percutaneous Approach (ICD-10-PCS; principal; 2019-05-03 09:30)
PROC: 4A023N7 Measurement of Cardiac Sampling and Pressure, Left Heart, Percutaneous Approach (ICD-10-PCS; 2019-05-03 09:30)
DX: I21.4 Non-ST elevation (NSTEMI) myocardial infarction (principal); I50.23 Acute on chronic systolic (congestive) heart failure; F17.213 Nicotine dependence, cigarettes, with withdrawal; I25.5 Ischemic cardiomyopathy; I25.119 Atherosclerotic heart disease of native coronary artery with unspecified angina pectoris; I11.0 Hypertensive heart disease with heart failure; R94.30 Abnormal result of cardiovascular function study, unspecified; D64.9 Anemia, unspecified; E87.6 Hypokalemia; J44.9 Chronic obstructive pulmonary disease, unspecified

== ENCOUNTER 2019-07-22 09:20 | Inpatient (IN) | payer MEDICAID ==
[~2019-07-22] VITALS: Ht 182.9 cm; Wt 89.5 kg
[~2019-07-22 09:20] MED LIST changes: +COREG12.5 MG PO; +LASIX40 MG PO; +PLAVIX75 MG PO
[2019-07-22 09:51] LABS: BASOPHILS 0.4 % (0-2); EOSINOPHILS 0.8 % (0-7); HEMATOCRIT 39.6 % (42.0-54.0); HEMOGLOBIN 13.1 g/dL (13.5-17.5); IMMATURE GRANULOCYTES 0.1 % (0-5); LYMPHOCYTES 11.8 % (15-50); MCH 29.3 pg (26.0-34.0); MCHC 33.1 g/dL (31.0-37.0); MCV 88.6 fL (80.0-100.0); MEAN PLATELET VOLUME 10.2 fL (7.4-10.4); MONOCYTES 12.4 % (2-11); NEUTROPHILS 74.5 % (40-80); PLATELET COUNT 228 10x3/uL (130-400); RBC 4.47 10x6/uL (4.20-6.10); RDW 13.4 % (11.5-14.5); WBC 7.8 10x3/uL (4.8-10.8)
[2019-07-22 10:09] LABS: APTT 28.7 SECONDS (22.8-39.4); INR 1.06 (0.85-1.17); PROTIME 13.3 SECONDS (11.6-15.0)
[2019-07-22 10:12] LABS: ALKALINE PHOSPHATASE 85 U/L (46-116); ALT (SGPT) 30 U/L (10-68); CALC OSMOLALITY 281 mosm/kg (275-300); CALCIUM 8.5 mg/dL (8.5-10.1); CARBON DIOXIDE 28.2 mmol/L (21.0-32.0); CHLORIDE - SERUM 103 mmol/L (98-107); GLUCOSE 115 mg/dL (74-106); POTASSIUM - SERUM 3.8 mmol/L (3.5-5.1); PROTEIN - SERUM 7.6 g/dL (6.4-8.2); SODIUM 141 mmol/L (136-145); UREA NITROGEN 12 mg/dL (7-18); eGFR NON AFRICAN AMERICAN 81 mL/min (90-120)
[2019-07-22 10:21] LABS: CKMB 2.3 U/L (0.0-3.6); CREATINE KINASE 121 UL (21-232); PRO BNP 16989 pg/mL (0-125); TROPONIN-I 0.056 ng/mL (0.000-0.060)
--- NOTE | 2019-07-22 11:26 | NUR ---
PT ARRIVED FROM ER. VSS AND WNL. DENIES ANY NEEDS AT THIS TIME, WILL CONT TO FOLLOW POC
[2019-07-22 11:27] VITALS: BP 145/86; BMI 27.2
[2019-07-22 12:00] VITALS: BP 145/86
[2019-07-22] MEDS ORDERED: FUROSEMIDE40 MG PO (13:28)
--- NOTE | 2019-07-22 16:37 | NUR ---
ASSISTED PT TO STAND ON SCALE. PT WT IS 205LBS. STARTED DOBUTAMINE GTT ORDERED.
[2019-07-22 16:42] VITALS: BP 139/75
--- NOTE | 2019-07-22 17:12 | NUR ---
PT RESTING IN BED EATING SUPPER, DENIES ANY NEEDS AT THIS TIME, WILL CONT TO FOLLOW POC
--- NOTE | 2019-07-22 19:20 | NUR ---
REPORT RECEIVED, WILL CONTINUE POC. PATIENT IS A/OX4, WAS ON HANDS AND KNEES UPON OPENING DOOR. PATIENT DENIES NEEDS AT THIS TIME. NO S/S OF DISTRESS NOTED. IV TO LT AC INFUSING DOBUTAMINE @14ML/HR. CL IN REACH, BED LOCKED AND LOWERED. WILL CTM.
[2019-07-22 20:30] VITALS: BP 102/57
[2019-07-23] VITALS (7 sets, daily range): BP systolic 104–145; BP diastolic 57–83; Ht 182.9 cm; Wt 89.5 kg
[2019-07-23 05:23] LABS: BASOPHILS 0 % (0-2); EOSINOPHILS 0 % (0-7); HEMATOCRIT 40.1 % (42.0-54.0); HEMOGLOBIN 13.5 g/dL (13.5-17.5); IMMATURE GRANULOCYTES 0.2 % (0-5); MCH 29.1 pg (26.0-34.0); MCHC 33.7 g/dL (31.0-37.0); MEAN PLATELET VOLUME 10.5 fL (7.4-10.4); MONOCYTES 3.6 % (2-11); NEUTROPHILS 91.2 % (40-80); PLATELET COUNT 237 10x3/uL (130-400); RBC 4.64 10x6/uL (4.20-6.10)
[2019-07-23 05:30] LABS: MCV 86.4 fL (80.0-100.0); WBC 5.8 10x3/uL (4.8-10.8)
[2019-07-23 06:00] LABS: ALBUMIN 3.5 g/dL (3.4-5.0); ANION GAP 12.7 mmol/L (8-16); BILIRUBIN - TOTAL 0.97 mg/dL (0.2-1.3); CALCIUM 8.7 mg/dL (8.5-10.1); CARBON DIOXIDE 30.8 mmol/L (21.0-32.0); CREATININE - SERUM 1.1 mg/dL (0.6-1.3); MAGNESIUM - SERUM 2.1 mg/dL (1.8-2.4); POTASSIUM - SERUM 3.5 mmol/L (3.5-5.1); PROTEIN - SERUM 7.7 g/dL (6.4-8.2)
--- NOTE | 2019-07-23 07:15 | NUR ---
PT RESTING IN BED, SHIFT ASSESSMENT PERFORMED, PT WEIGHT THIS AM IS 198LBS. ADJUSTED DOBUTAMINE GTT TO 13.5ML/HR ORDERED. DENIES ANY NEEDS AT THIS TIME. WILL CONT TO FOLLOW POC
--- NOTE | 2019-07-23 12:17 | NUR ---
PIV TO LEFT AC INFILTRATED, REMOVED WITH CATHETER TIP INTACT. 20G PIV INSERTED X1 ATTEMPT TO LEFT WRIST. PT TOLERATED WELL. CONNECTED DOBUTAMINE GTT TO NEW PIV. PT SITTING UP EATING LUNCH AT THIS TIME, DENIES ANY FURTHER NEEDS. WILL CONT TO FOLLOW POC
--- NOTE | 2019-07-23 19:30 | NUR ---
WHEN ENTERED PT ROOM TO ASSESS PAIN LEVEL, PT HELD UP HAND AND STATED " NO YOU CAN STOP RIGHT THERE AND LEAVE." EXPLAINED JUST NEED TO KNOW IF HE WAS IN PAIN. PT STATED "YOU CAN TAKE YOUR ASS OUT OF HERE." PT DID NOT SEEM TO BE IN DISTRESS.
--- NOTE | 2019-07-23 23:19 | NUR ---
LOUD YELLING COULD BE HEARD FROM OPPOSITE END OF HALLWAY. WENT TO PATIENT'S ROOM AND ANOTHER NURSE WAS JUST LEAVING FROM RESETTING HIS ALARMING IV. PT WAS SCREAMING AND YELLING AT THE NURSE. TELLING NURSE SHE SHOULD "DO HER JOB". NURSE THAT WAS TRYING TO HELP PATIENT HAD ONLY GONE TO ANSWER HIS CALL LIGHT SINCE HIS PRIMARY NURSE WAS IN ANOTHER PATIENT ROOM. PT RUDE, DISMISSIVE AND REPEATEDLY TOLD THIS NURSE THAT STAFF HAD MESSED WITH THE "WRONG PERSON". HE INSINUATED THAT HE WAS OF A LEVEL OF IMPORTANCE THAT WOULD RESULT IN ALL THE "NO GOOD FOR NOTING NURSES" BEING IN TROUBLE. EXPLAINED TO PATIENT THAT YELLING AT A NURSE WHO WAS JUST TRYING TO HELP HIM WAS NOT ACCEPTABLE BEHAVIOR. EXPLAINED TO PATIENT THAT ALL PATIENTS ARE TREATED THE SAME AND IT DID NOT MATTER IF HE FELT HE WAS "SOMEONE", HE WOULD BE TAKEN CARE OF EQUALLY. PT TOLD THIS NURSE TO GET OUT OF HIS ROOM. REITERATED TO THE PATIENT THAT NO FURTHER YELLING AND SCREAMING AT THE STAFF WOULD BE TOLERATED.
[2019-07-24 06:09] LABS: BASOPHILS 0 % (0-2); EOSINOPHILS 0 % (0-7); HEMATOCRIT 41.4 % (42.0-54.0); HEMOGLOBIN 13.7 g/dL (13.5-17.5); IMMATURE GRANULOCYTES 0.1 % (0-5); LYMPHOCYTES 11.4 % (15-50); MCHC 33.1 g/dL (31.0-37.0); MCV 87.5 fL (80.0-100.0); MEAN PLATELET VOLUME 10.3 fL (7.4-10.4); MONOCYTES 11.1 % (2-11); NEUTROPHILS 77.4 % (40-80); PLATELET COUNT 241 10x3/uL (130-400); RBC 4.73 10x6/uL (4.20-6.10); RDW 13.1 % (11.5-14.5)
[2019-07-24 06:38] LABS: CALCIUM 8.6 mg/dL (8.5-10.1); CARBON DIOXIDE 31.5 mmol/L (21.0-32.0); CREATININE - SERUM 1.4 mg/dL (0.6-1.3); MAGNESIUM - SERUM 1.9 mg/dL (1.8-2.4); POTASSIUM - SERUM 3.5 mmol/L (3.5-5.1)
[2019-07-24 08:00] VITALS: BP 121/80
--- NOTE | 2019-07-24 09:56 | EC ---
PATIENT:IVA BROCK DATE OF SERVICE: 07/22/19 SEX: M MEDICAL RECORD: [id number] DATE OF : [birth year] LOCATION:D.M2 D.212 AGE OF PATIENT: 63 ADMISSION DATE: 07/22/19 REFERRING PHYSICIAN: INTERPRETING PHYSICIAN: CHANDNI ORDOÑEZ MD ECHOCARDIOGRAM REPORT ECHO CHARGES 4 ECHO COMPLETE Date: 07/22/19 CLINICAL DIAGNOSIS: SOB,CHEST PAIN, ASSESS EF AND VALVES ECHOCARDIOGRAPHIC MEASUREMENTS (adult normal given) AC root (d.<3.7cm) 3.6 cm LV Septum d (<1.2 cm> 1.2 cm Valve Excursion 1.8 cm LV Septum (systole) 1.5 cm Left Atria (s.<4.0cm> 5.0 cm LVPW d(<1.2cm) 1.4 cm RV (d.<2.3cm) 4.2 cm LVPW (sytole) 1.5 cm LV diastole(<5.6CM) 6.8 cm MV E-F(>70mm/sec) cm LV systole 5.8 cm LVOT Diameter 2.1 cm MV exc.(>10mm) 1.2 cm Est.ejection fraction (50-75%) % DOPPLER: LVIT cm/sec A 84.0 cm/sec E 112 cm/sec LA cm/sec RVSP 60 mmHg LVOT 103 cm/sec AOP1/2T m/s Asc. Ao 131 cm/sec RVOT 78 cm/sec RA cm/sec PA 115 cm/sec AV Gradient Peak 6.86 mmHg AV Mean 4.52 mmHg AV Area 2.8 cm MV Gradient Peak 8.22 mmHg MV Mean 3.34 mmHg MV Area cm COMMENTS: Windows Server Architect: 2 RATNA BUNDY Travelift Operator: 3 Dr. Tian TAPE# PACS Pericardial Effusion N DATE OF SERVICE: Adequate 2D, color flow imaging, spectral Doppler, and M-Mode Borderline LVH. LV internal dimension is dilated. 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 EF is reduced 20% to 25%. Aortic valve is sclerosed without evidence of stenosis by Doppler interrogation. Left atrium is dilated at 5.0 cm. Mitral valve is thickened. Muuforyh-cq-ufrfib MR. Right-sided chambers are grossly normal. Fuma-lt-yhkitdjh TR with color flow imaging. ECHOCARDIOGRAM REPORT [id number] IVA BROCK TRANSINT:[id number] Voice Confirmation ID: [id number] DOCUMENT ID: [id number] CHANDNI ORDOÑEZ MD at 0956 CC: [id number] DICTATION DATE: 07/23/19 1128 DESIGN TECH: 07/23/19 1234 ADM IN [facility] [address] [place] [address]
[2019-07-24 16:00] VITALS: BP 105/81
--- NOTE | 2019-07-24 16:53 | NUR ---
ALERT AND ORIENTED X4. DC DOBUTAMINE DRIP ORDERED PER VIA TELEPHONE. UP OOB WALKING THE SUMMERS. DENIES ANY NEEDS AT THIS TIME. SINUS RYTHM ON TELEMETRY. CONTINUE PLAN OF CARE AND SAFETY PRECAUTIONS.
--- NOTE | 2019-07-24 19:15 | NUR ---
UP AND AMBULATING AROUND ROOM REFUSING COMPLETE ASSESSMENT SAYING NO IM GOING HOME TOMORROW BED LOW AND LOCKED AND CALL LIGHT IN REACH
[2019-07-24 20:00] VITALS: BP 120/75
[2019-07-25 00:35] VITALS: BP 117/78
--- NOTE | 2019-07-25 03:54 | NUR ---
I have reviewed this patient and I concur with the Shift Assessment completed by the Licensed Practical Nurse today this shift.
[2019-07-25 04:24] VITALS: BP 134/88
[2019-07-25 06:32] LABS: BASOPHILS 0.4 % (0-2); EOSINOPHILS 1.6 % (0-7); HEMATOCRIT 43.4 % (42.0-54.0); HEMOGLOBIN 14.3 g/dL (13.5-17.5); IMMATURE GRANULOCYTES 0.4 % (0-5); LYMPHOCYTES 19.1 % (15-50); MCH 29.2 pg (26.0-34.0); MCHC 32.9 g/dL (31.0-37.0); MCV 88.6 fL (80.0-100.0); MEAN PLATELET VOLUME 10.2 fL (7.4-10.4); MONOCYTES 18.7 % (2-11); NEUTROPHILS 59.8 % (40-80); PLATELET COUNT 269 10x3/uL (130-400); RDW 13.2 % (11.5-14.5)
[2019-07-25 06:46] LABS: ANION GAP 11.6 mmol/L (8-16); CALCIUM 8.2 mg/dL (8.5-10.1); CARBON DIOXIDE 32.1 mmol/L (21.0-32.0); CREATININE - SERUM 1.3 mg/dL (0.6-1.3); MAGNESIUM - SERUM 1.9 mg/dL (1.8-2.4); POTASSIUM - SERUM 3.7 mmol/L (3.5-5.1)
--- NOTE | 2019-07-25 07:13 | NUR ---
RESTING IN BED WITH EYES CLOSED. AROUSES TO DOOR OPENING. PATIENT STATES,"PLEASE CLOSE THE DOOR AND LET ME SLEEP, I'M GOING HOME TODAY." CONTINUE PLAN OF CARE AND SAFETY PRECAUTIONS.
[2019-07-25 08:30] VITALS: BP 124/89
[2019-07-25] MEDS ORDERED: COREG6.25 MG PO (09:24)
[2019-07-25] MEDS ORDERED: ALDACTONE25 MG PO (09:24)
[2019-07-25] MEDS ORDERED: PULMICORT0.5 MG/21 UPD (09:25)
[2019-07-25] MEDS ORDERED: PROTONIX40 MG PO (09:25)
--- NOTE | 2019-07-25 10:49 | NUR ---
PATIENT REFUSED FLU SHOT WHEN ASKED IF HE WOULD LIKE TO RECEIVE IT. STATES, "I NEVER TAKE THEM".
--- NOTE | 2019-07-25 11:26 | NUR ---
PER DR HOPPER TO ADD CXR WITH PFT'S AND INHALERS.
[2019-07-25] MEDS ORDERED: SYMBICORT 16010.2 GM INH (11:27)
[2019-07-25] MEDS ORDERED: ALBUTEROL SULF8.5 GM (11:28)
[2019-07-25] MEDS ORDERED: SPIRIVA18 MCG INH (11:29)
--- NOTE | 2019-07-25 12:27 | NUR ---
INHALERS CALLED TO [facility] [phone]. SPOKE WITH TOO, PHARMACIST
--- NOTE | 2019-07-25 13:07 | NUR ---
ALERT AND ORIENTED X4. PACING IN SUMMERS. DC LT WRIST IV TIP INTACT. DISCHARGE INSTRUCTIONS GIVEN VERBALLY AND WRITTEN. DISCHARGE PAPERS SIGNED ON CHART. ESCORT TO RIDE VIA AMBULATE PER PATIENT REQUEST. REMAINS FREE FROM INJURY.
--- NOTE | 2019-07-25 15:24 | MORECARE ---
CASE MANAGEMENT DISCHARGE SUMMARY PATIENT: IVA BROCK UNIT: [id number] ADM DATE: 07/22/19 AGE: 63 : 59 SEX: M ROOM/BED: D.2128 AUTHOR: JOHNNA MARROQUIN PHYSICIAN: REFERRING PHYSICIAN: KAITLIN MARCUS MD DATE OF SERVICE: 07/25/19 Discharge Plan Patient Name: IVA BROCK [facility] [facility] 1955 Planned Disposition: Home Anticipated Discharge Date: 07/25/19 Discharge Date: 07/25/2019 Expected LOS: 3 Initial Reviewer: [email or web address] Initial Review Date: 07/25/2019 Generated: 07/25/19 4:24 pm DCPIA - Discharge Planning Initial Assessment Updated by [email or web address]: Alcon Aragon on 07/25/19 3:23 pm * Is the patient Alert and Oriented? Yes * How many steps to enter\exit or inside your home? NONE * PCP DR. DIAZ, BY [facility] * Pharm[facility] * Preadmission Environment Home with Family * ADLs Independent * Equipment None * Other Equipment NO MEDICAL EQUIPMENT PROVIDER PREFERNECE * List name and contact numbers for known caregivers / representatives who currently or will assist patient after discharge: JANEE STEELE, AUNT, * Verbal permission to speak to the caregivers and representatives has been obtained from the patient. N/A * Community resources currently utilized None * Please name any agencies selected above. NONE * Additional services required to return to the preadmission environment? No * Can the patient safely return to the preadmission environment? Yes * Has this patient been hospitalized within the prior 30 days at any hospital? No Patient Name: IVA BROCK Page [id number] at 1524 All edits/amendments must be made on the electronic document DICTATION DATE: 07/25/191523 MEDICAL RECORD CODER: MACARENA 07/25/191523 RPT#: [id number] DC DATE:07/25/19 STATUS: DIS IN [address] [place] [address] END OF REPORT
--- NOTE | 2019-07-25 15:34 | MORECARE ---
CASE MANAGEMENT DISCHARGE SUMMARY PATIENT: IVA BROCK UNIT: [id number] ADM DATE: 07/22/19 AGE: 63 : 59 SEX: M ROOM/BED: D.2937 AUTHOR: CARA,DOC PHYSICIAN: REFERRING PHYSICIAN: KAITLIN MARCUS MD DATE OF SERVICE: 07/25/19 Discharge Plan Patient Name: IVA BROCK Facility: [facility]:[place] : 1955 Planned Disposition: Home Anticipated Discharge Date: 07/25/19 Discharge Date: 07/25/2019 Expected LOS: 3 Initial Reviewer: [email or web address] Initial Review Date: 07/25/2019 Generated: 07/25/19 4:33 pm Comments DCP- Discharge Planning Updated by [email or web address]: Alcon Aragon on 07/25/19 2:[address] Patient Name: IVA BROCK Admission Status: ER Accout number: [id number] Admission Date: 07-22-2019 : 1955 Admission Diagnosis:SHORTNESS OF BREATH Attending: KAITLIN MARCUS Current LOS: 3 Anticipated DC Date: 07-25-2019 Planned Disposition: Home Primary Insurance: MEDICAID [place] Discharge Planning Comments: CM MET WITH PT IN ROOM TO DISCUSS DISCHARGE PLANNING AND NEEDS. PT REPORTS LIVING AT HOME INDEPENDENTLY WITH TWO ADULT FRIENDS. PT HAS NO MEDICAL EQUIPMENT AND NO OUTSIDE SERVICES ASSISTING IN THE HOME. CM DISCUSSED AVAILABILITY OF HOME HEALTH, REHAB SERVICES AND MEDICAL EQUIPMENT. PT DENIES DISCHARGE NEEDS, REPORTS HIS FRIEND WILL PICK HIM UP FOR DISCHARGE HOME. Snake Charmer: Alcon Aragon DCPIA - Discharge Planning Initial Assessment Updated by [email or web address]: Alcon Aragon on 07/25/19 3:23 pm * Is the patient Alert and Oriented? Yes * How many steps to enter\exit or inside your home? NONE * PCP DR. DIAZ, BY [facility] IN [place] * [facility] * Preadmission Environment Home with Family * ADLs Independent * Equipment None * Other Equipment NO MEDICAL EQUIPMENT PROVIDER PREFERNECE * List name and contact numbers for known caregivers / representatives who currently or will assist patient after discharge: JANEE DWYERT, AUNT, * Verbal permission to speak to the caregivers and representatives has been obtained from the patient. N/A * Community resources currently utilized None * Please name any agencies selected above. NONE * Additional services required to return to the preadmission environment? No * Can the patient safely return to the preadmission environment? Yes * Has this patient been hospitalized within the prior 30 days at any hospital? No Last DP export: 07/25/19 2:24 p Patient Name: IVA BROCK Page 17847 at 1534 All edits/amendments must be made on the electronic document DICTATION DATE: 07/25/19 1533 FIG CAPRIFIER: DM 07/25/19 1533 RPT#: [id number] DC DATE:07/25/19 STATUS: DIS IN [facility] [address] [place] [address] END OF REPORT
== END 2019-07-25 13:09 | disposition home or self-care (01) | DRG 292 ==
LOC: D.ER 09:20 → D.M2 11:12
PROVIDERS: Family Medicine; ADMIT Family Medicine; ATTEND Family Medicine
DX: I11.0 Hypertensive heart disease with heart failure (principal); F17.213 Nicotine dependence, cigarettes, with withdrawal; I50.23 Acute on chronic systolic (congestive) heart failure; I25.5 Ischemic cardiomyopathy; D64.9 Anemia, unspecified; I25.10 Atherosclerotic heart disease of native coronary artery without angina pectoris; J43.9 Emphysema, unspecified

== ENCOUNTER 2019-08-02 20:46 | Inpatient (IN) | payer MEDICAID ==
[~2019-08-02] VITALS: Ht 182.9 cm; Wt 88.9 kg
[~2019-08-02 20:46] MED LIST changes: +ALBUTEROL SULF8.5 GM; +ALDACTONE25 MG PO; +COREG6.25 MG PO; +FUROSEMIDE40 MG PO; +PROTONIX40 MG PO; +PULMICORT0.5 MG/21 UPD; +SPIRIVA18 MCG INH; +SYMBICORT 16010.2 GM INH
[2019-08-02 21:00] VITALS: BP 123/83
[2019-08-02 21:18] LABS: BASOPHILS 0.2 % (0-2); EOSINOPHILS 1.5 % (0-7); HEMATOCRIT 37.8 % (42.0-54.0); HEMOGLOBIN 12.1 g/dL (13.5-17.5); IMMATURE GRANULOCYTES 0.2 % (0-5); LYMPHOCYTES 18.3 % (15-50); MCH 28.9 pg (26.0-34.0); MCV 90.4 fL (80.0-100.0); MEAN PLATELET VOLUME 9.8 fL (7.4-10.4); MONOCYTES 9.7 % (2-11); NEUTROPHILS 70.1 % (40-80); RBC 4.18 10x6/uL (4.20-6.10); RDW 13.5 % (11.5-14.5); WBC 4.7 10x3/uL (4.8-10.8)
[2019-08-02 21:19] LABS: PLATELET COUNT 184 10x3/uL (130-400)
[2019-08-02 21:31] LABS: APTT 27.3 SECONDS (22.8-39.4); INR 1.06 (0.85-1.17); PROTIME 13.3 SECONDS (11.6-15.0)
[2019-08-02 21:42] LABS: ALBUMIN 3.5 g/dL (3.4-5.0); ALKALINE PHOSPHATASE 85 U/L (46-116); ALT (SGPT) 46 U/L (10-68); CALC OSMOLALITY 283 mosm/kg (275-300); CALCIUM 8.5 mg/dL (8.5-10.1); CARBON DIOXIDE 30.1 mmol/L (21.0-32.0); CHLORIDE - SERUM 107 mmol/L (98-107); CREATININE - SERUM 1.3 mg/dL (0.6-1.3); GLUCOSE 99 mg/dL (74-106); POTASSIUM - SERUM 4.3 mmol/L (3.5-5.1); SODIUM 142 mmol/L (136-145); UREA NITROGEN 16 mg/dL (7-18); eGFR NON AFRICAN AMERICAN 60 mL/min (90-120)
[2019-08-02 21:54] LABS: CREATINE KINASE 65 UL (21-232); PRO BNP 15829 pg/mL (0-125); TROPONIN-I 0.037 ng/mL (0.000-0.060)
[2019-08-02 22:01] VITALS: BP 114/72
[2019-08-02 23:47] VITALS: BP 119/67
[2019-08-03] VITALS (7 sets, daily range): BP systolic 105–149; BP diastolic 66–100; Ht 182.9 cm; Wt 88.9 kg
[2019-08-03 05:34] LABS: BASOPHILS 0.4 % (0-2); EOSINOPHILS 1.6 % (0-7); HEMOGLOBIN 12.7 g/dL (13.5-17.5); IMMATURE GRANULOCYTES 0.4 % (0-5); LYMPHOCYTES 18.7 % (15-50); MCH 28.9 pg (26.0-34.0); MCHC 32.6 g/dL (31.0-37.0); MCV 88.6 fL (80.0-100.0); MEAN PLATELET VOLUME 11.2 fL (7.4-10.4); MONOCYTES 11.4 % (2-11); NEUTROPHILS 67.5 % (40-80); PLATELET COUNT 213 10x3/uL (130-400); RDW 13.6 % (11.5-14.5); WBC 4.9 10x3/uL (4.8-10.8)
[2019-08-03 06:26] LABS: CALC OSMOLALITY 291 mosm/kg (275-300); CALCIUM 8.6 mg/dL (8.5-10.1); CARBON DIOXIDE 31.9 mmol/L (21.0-32.0); CHLORIDE - SERUM 106 mmol/L (98-107); CKMB 2.3 U/L (0.0-3.6); CREATININE - SERUM 1.1 mg/dL (0.6-1.3); GLUCOSE 97 mg/dL (74-106); MAGNESIUM - SERUM 1.9 mg/dL (1.8-2.4); PHOSPHOROUS 3.7 mg/dL (2.5-4.9); PRO BNP 11166 pg/mL (0-125); SODIUM 146 mmol/L (136-145); TROPONIN-I 0.047 ng/mL (0.000-0.060); UREA NITROGEN 16 mg/dL (7-18); eGFR NON AFRICAN AMERICAN 72 mL/min (90-120)
[2019-08-03 06:36] LABS: UDS - AMPHET NEGATIVE QUAL (NEGATIVE); UDS - BARB NEGATIVE QUAL (NEGATIVE); UDS - BENZO NEGATIVE QUAL (NEGATIVE); UDS - COCAINE NEGATIVE QUAL (NEGATIVE); UDS - OPIATE NEGATIVE QUAL (NEGATIVE); UDS - PCP NEGATIVE QUAL (NEGATIVE); UDS - THC POSITIVE QUAL (NEGATIVE)
[2019-08-04 01:26] VITALS: BP 124/60
[2019-08-04 04:41] VITALS: BP 120/65
[2019-08-04 05:33] LABS: BASOPHILS 0.3 % (0-2); EOSINOPHILS 1.6 % (0-7); HEMATOCRIT 42.2 % (42.0-54.0); HEMOGLOBIN 13.7 g/dL (13.5-17.5); IMMATURE GRANULOCYTES 0.2 % (0-5); LYMPHOCYTES 17.3 % (15-50); MCH 28.8 pg (26.0-34.0); MCHC 32.5 g/dL (31.0-37.0); MCV 88.8 fL (80.0-100.0); MONOCYTES 9.8 % (2-11); NEUTROPHILS 70.8 % (40-80); PLATELET COUNT 216 10x3/uL (130-400); RBC 4.75 10x6/uL (4.20-6.10); RDW 13.7 % (11.5-14.5); WBC 5.7 10x3/uL (4.8-10.8)
[2019-08-04 05:42] LABS: CALCIUM 8.7 mg/dL (8.5-10.1); CARBON DIOXIDE 35.1 mmol/L (21.0-32.0); MAGNESIUM - SERUM 1.8 mg/dL (1.8-2.4); POTASSIUM - SERUM 4.1 mmol/L (3.5-5.1)
[2019-08-04 05:54] LABS: CREATININE - SERUM 1.4 mg/dL (0.6-1.3)
[2019-08-04 08:43] VITALS: BP 118/70
[2019-08-04 12:54] VITALS: BP 121/71
[2019-08-04] MEDS ORDERED: NICODERM C1 PATCH .1 TRANSDERM (12:56)
--- NOTE | 2019-08-04 13:33 | MORECARE ---
CASE MANAGEMENT DISCHARGE SUMMARY PATIENT: IVA BROCK UNIT: [id number] ADM DATE: 08/03/19 AGE: 63 : 59 SEX: M ROOM/BED: D.2222 AUTHOR: CARADOC PHYSICIAN: REFERRING PHYSICIAN: TOO QUILES MD DATE OF SERVICE: 08/04/19 Discharge Plan Patient Name: IVA BROCK Facility: [facility]:[place] : 1955 Planned Disposition: Home Anticipated Discharge Date: 08/04/19 Discharge Date: Expected LOS: 1 Initial Reviewer: [email or web address] Initial Review Date: 08/04/2019 Generated: 08/04/19 2:33 pm Comments DCP- Discharge Planning Updated by [email or web address]: Kena Stahl on 08/04/19 12:[address] Patient Name: IVA BROCK Admission Status: ER Accout number: [id number] Admission Date: 08-03-2019 : 1955 Admission Diagnosis: Attending: TOO QUILES Current LOS: 1 Anticipated DC Date: 08-04-2019 Planned Disposition: Home Primary Insurance: MEDICAID [place] Discharge Planning Comments: CM met with patient to complete initial dc planning assessment. CM educated patient on the CM role and verbal consent given by patient to complete assessment. Patient lives at home with 2 adult friends. At discharge patient plans to return and feels this is a safe discharge. He states one of his friends will drive him home on discharge. CM discussed availability of home health, rehab services, and medical equipment. Patient denied known discharge needs at this time. CM will continue to follow and will assist as needed with dc plans/needs. Medical Care Evaluation Specialist: Kena Stahl DCPIA - Discharge Planning Initial Assessment Updated by [email or web address]: Kena Stahl on 08/04/19 1:29 pm * Is the patient Alert and Oriented? Yes * How many steps to enter\exit or inside your home? 0/0 * PCP Dr. Chas Joshi - [facility] * Pharmacy [facility] [address] * Preadmission Environment Home with Family * ADLs Independent * Equipment None * List name and contact numbers for known caregivers / representatives who currently or will assist patient after discharge: Aria Stephanyt - aunt - [phone] * Verbal permission to speak to the caregivers and representatives has been obtained from the patient. Yes * Community resources currently utilized None * Additional services required to return to the preadmission environment? No * Can the patient safely return to the preadmission environment? Yes * Has this patient been hospitalized within the prior 30 days at any hospital? No Patient Name: IVA BROCK Page 41470 at 1333 All edits/amendments must be made on the electronic document DICTATION DATE: 08/04/191332 AGRICULTURE RESEARCH DIRECTOR: MACARENA 08/04/191332 RPT#: [id number] DC DATE: STATUS: ADM IN [facility] [address] [place] [address] END OF REPORT
--- NOTE | 2019-08-04 16:50 | MORECARE ---
CASE MANAGEMENT DISCHARGE SUMMARY PATIENT: IVA BROCK UNIT: [id number] ADM DATE: 08/03/19 AGE: 63 : 59 SEX: M ROOM/BED: D.2222 AUTHOR: CARA,DOC PHYSICIAN: REFERRING PHYSICIAN: TOO QUILES MD DATE OF SERVICE: 08/04/19 Discharge Plan Patient Name: IVA BROCK Facility: [facility]:[place] : 1955 Planned Disposition: Home Anticipated Discharge Date: 08/04/19 Discharge Date: 08/04/2019 Expected LOS: 1 Initial Reviewer: [email or web address] Initial Review Date: 08/04/2019 Generated: 08/04/19 5:50 pm Comments DCP- Discharge Planning Updated by [email or web address]: Kena Stahl on 08/04/19 12:[address] Patient Name: IVA BROCK Admission Status: ER Accout number: [id number] Admission Date: 08-03-2019 : 1955 Admission Diagnosis: Attending: TOO QUILES Current LOS: 1 Anticipated DC Date: 08-04-2019 Planned Disposition: Home Primary Insurance: MEDICAID [place] Discharge Planning Comments: CM met with patient to complete initial dc planning assessment. CM educated patient on the CM role and verbal consent given by patient to complete assessment. Patient lives at home with 2 adult friends. At discharge patient plans to return and feels this is a safe discharge. He states one of his friends will drive him home on discharge. CM discussed availability of home health, rehab services, and medical equipment. Patient denied known discharge needs at this time. CM will continue to follow and will assist as needed with dc plans/needs. Servomechanism Designer: Kena Stahl DCPIA - Discharge Planning Initial Assessment Updated by [id number]: Kena Stahl on 08/04/19 1:29 pm * Is the patient Alert and Oriented? Yes * How many steps to enter\exit or inside your home? 0/0 * PCP Dr[facility] Chas Joshi - [facility] * Pharmacy [facility] * Preadmission Environment Home with Family * ADLs Independent * Equipment None * List name and contact numbers for known caregivers / representatives who currently or will assist patient after discharge: Aria Stephanyt - aunt - [phone] * Verbal permission to speak to the caregivers and representatives has been obtained from the patient. Yes * Community resources currently utilized None * Additional services required to return to the preadmission environment? No * Can the patient safely return to the preadmission environment? Yes * Has this patient been hospitalized within the prior 30 days at any hospital? No Last DP export: 08/04/19 12:33 Patient Name: IVA BROCK Page [phone] at 1650 All edits/amendments must be made on the electronic document DICTATION DATE: 08/04/191649 SUBSTANCE ABUSE NURSE: MACARENA 08/04/191649 RPT#: [id number] DC DATE:08/04/19 STATUS: DIS IN [facility] [address] [place] [address] END OF REPORT
== END 2019-08-04 15:37 | disposition home or self-care (01) | DRG 292 ==
LOC: D.ER 20:46 → D.MS 08-03 00:11
PROVIDERS: Family Medicine; ADMIT Emergency Medicine; ATTEND Emergency Medicine
DX: I11.0 Hypertensive heart disease with heart failure (principal); F17.213 Nicotine dependence, cigarettes, with withdrawal; I50.23 Acute on chronic systolic (congestive) heart failure; J44.9 Chronic obstructive pulmonary disease, unspecified; I42.9 Cardiomyopathy, unspecified; I25.10 Atherosclerotic heart disease of native coronary artery without angina pectoris; E78.5 Hyperlipidemia, unspecified; D64.9 Anemia, unspecified; I34.0 Nonrheumatic mitral (valve) insufficiency; Z91.14 Patient's other noncompliance with medication regimen

== ENCOUNTER → 2019-08-30 07:45 | Outpatient (CLI) | payer MEDICAID ==
[2019-08-03 12:34] VITALS: BMI 26.6
[~2019-08-30 07:45] MED LIST changes: +NICODERM C1 PATCH .1 TRANSDERM; +ZESTRIL10 MG PO
== END | disposition home or self-care (01) ==
LOC: D.RT 07:45 → D.RAD 11:15 → D.RT 11:15
PROVIDERS: ATTEND Internal Medicine Pulmonary Disease
DX: J44.9 Chronic obstructive pulmonary disease, unspecified (principal); R06.00 Dyspnea, unspecified

== ENCOUNTER 2019-09-08 12:28 | Emergency (ER) | payer MEDICAID ==
[~2019-09-08] VITALS: Ht 182.9 cm; Wt 90.9 kg
[~2019-09-08 12:28] MED LIST changes: -ZESTRIL10 MG PO
[2019-09-08 12:39] VITALS: Ht 182.9 cm; Wt 90.9 kg
[2019-09-08 13:00] LABS: BASOPHILS 0.3 % (0-2); EOSINOPHILS 0.6 % (0-7); HEMATOCRIT 37.8 % (42.0-54.0); HEMOGLOBIN 12.1 g/dL (13.5-17.5); LYMPHOCYTES 14.4 % (15-50); MCH 28.5 pg (26.0-34.0); MCV 89.2 fL (80.0-100.0); MONOCYTES 13.8 % (2-11); NEUTROPHILS 70.9 % (40-80); PLATELET COUNT 257 10x3/uL (130-400); RBC 4.24 10x6/uL (4.20-6.10); RDW 13.6 % (11.5-14.5); WBC 6.4 10x3/uL (4.8-10.8)
[2019-09-08 13:05] LABS: CALC OSMOLALITY 281 mosm/kg (275-300); CALCIUM 8.9 mg/dL (8.5-10.1); CARBON DIOXIDE 34.4 mmol/L (21.0-32.0); CHLORIDE - SERUM 103 mmol/L (98-107); CREATININE - SERUM 1.2 mg/dL (0.6-1.3); GLUCOSE 113 mg/dL (74-106); POTASSIUM - SERUM 3.8 mmol/L (3.5-5.1); SODIUM 140 mmol/L (136-145); UREA NITROGEN 17 mg/dL (7-18); eGFR NON AFRICAN AMERICAN 65 mL/min (90-120)
[2019-09-08 13:06] LABS: INR 1.16 (0.85-1.17); PROTIME 14.3 SECONDS (11.6-15.0)
[2019-09-08 13:46] LABS: ALBUMIN 3.4 g/dL (3.4-5.0); ALKALINE PHOSPHATASE 84 U/L (46-116); ALT (SGPT) 28 U/L (10-68); CKMB 1.6 U/L (0.0-3.6); CREATINE KINASE 72 UL (21-232); PRO BNP 15546 pg/mL (0-125); PROTEIN - SERUM 7.6 g/dL (6.4-8.2); TROPONIN-I 0.053 ng/mL (0.000-0.060)
[2019-09-08] MEDS ORDERED: ZESTRIL10 MG PO (15:25)
[2019-09-08 15:41] VITALS: BP 126/96
== END 2019-09-08 15:40 | disposition home or self-care (01) ==
LOC: D.ER 12:28
PROVIDERS: Emergency Medicine
DX: R06.00 Dyspnea, unspecified (principal); D64.9 Anemia, unspecified; J44.9 Chronic obstructive pulmonary disease, unspecified; I25.2 Old myocardial infarction; I50.9 Heart failure, unspecified; I25.10 Atherosclerotic heart disease of native coronary artery without angina pectoris

== ENCOUNTER 2019-10-01 11:14 | Inpatient (IN) | payer MEDICAID ==
[~2019-10-01] VITALS: Ht 182.9 cm; Wt 93.0 kg
[~2019-10-01 11:14] MED LIST changes: +ZESTRIL10 MG PO
[2019-10-01 12:02] LABS: BASOPHILS 0.2 % (0-2); EOSINOPHILS 0.1 % (0-7); HEMATOCRIT 39.8 % (42.0-54.0); HEMOGLOBIN 12.5 g/dL (13.5-17.5); IMMATURE GRANULOCYTES 0.2 % (0-5); LYMPHOCYTES 7.4 % (15-50); MCH 27.9 pg (26.0-34.0); MCHC 31.4 g/dL (31.0-37.0); MCV 88.8 fL (80.0-100.0); MEAN PLATELET VOLUME 10.7 fL (7.4-10.4); MONOCYTES 15.8 % (2-11); NEUTROPHILS 76.3 % (40-80); PLATELET COUNT 247 10x3/uL (130-400); RBC 4.48 10x6/uL (4.20-6.10); WBC 10.5 10x3/uL (4.8-10.8)
[2019-10-01 12:10] LABS: CALC OSMOLALITY 276 mosm/kg (275-300); CALCIUM 8.7 mg/dL (8.5-10.1); CARBON DIOXIDE 27.9 mmol/L (21.0-32.0); CHLORIDE - SERUM 99 mmol/L (98-107); CREATININE - SERUM 1.5 mg/dL (0.6-1.3); GLUCOSE 109 mg/dL (74-106); POTASSIUM - SERUM 3.9 mmol/L (3.5-5.1); SODIUM 136 mmol/L (136-145); UREA NITROGEN 24 mg/dL (7-18); eGFR NON AFRICAN AMERICAN 51 mL/min (90-120)
[2019-10-01 12:14] LABS: APTT 29.6 SECONDS (22.8-39.4); INR 1.21 (0.85-1.17); PROTIME 14.8 SECONDS (11.6-15.0)
[2019-10-01 12:27] LABS: ALBUMIN 3.5 g/dL (3.4-5.0); ALKALINE PHOSPHATASE 85 U/L (46-116); ALT (SGPT) 145 U/L (10-68); BILIRUBIN - TOTAL 1.71 mg/dL (0.2-1.3); CKMB 2.4 U/L (0.0-3.6); CREATINE KINASE 142 UL (21-232); PRO BNP 17703 pg/mL (0-125); PROTEIN - SERUM 7.6 g/dL (6.4-8.2); TROPONIN-I 0.048 ng/mL (0.000-0.060)
[2019-10-01 12:54] VITALS: BP 146/97
--- NOTE | 2019-10-01 15:40 | NUR ---
PATIENT ARRIVED HERE FROM THE ER. HE IS SITTING UPRIGHT IN THE BED. IV INFUSING ANTIBIOTICS ORDERED. HE IS DIAPHRETIC AND ASKED FOR SPRITE AND CRACKERS. HIS COLOR IS LAW[place]. REPORTS DISCOMFORT AND SHORTNESS OF BREATH.
[2019-10-01 17:03] VITALS: BP 105/66
[2019-10-01 17:11] VITALS: BP 105/66; BMI 27.8
--- NOTE | 2019-10-01 17:48 | NUR ---
CALLED SREE JOE TO REPORT THAT PATIENT DLACTIC ACID IS 2.9
--- NOTE | 2019-10-01 18:22 | NUR ---
REPORTED LACTIC ACID OF 2.9 TO HARDIK ELI. SHE ORDERED TO CONSULT DR HOPPER. PAGING DR HOPPER NOW.
--- NOTE | 2019-10-01 18:33 | NUR ---
CALLED DR HOPPER, AND HE ACKNOWLEDGED THE CONSULT.
--- NOTE | 2019-10-01 19:10 | NUR ---
BEDSIDE REPORT RECEIVED FROM DAY SHIFT, PT CARE ASSUMED. INTRODUCED SELF AND WROTE NAME ON BOARD. PT LYING IN BED, AAOX4, C/O CHEST PAIN OF 6, ON A SCALE OF 0-10, STATES "IT'S BECAUSE OF THE PNEUMONIA." REQUESTING EXTRA PILLOW, PROVIDED. DENIES ANY OTHER NEEDS AT THIS TIME. BED IN LOWEST POSITION, SR X2, CALL LIGHT WITHIN REACH. WILL CONTINUE TO MONITOR.
[2019-10-01 20:00] VITALS: BP 110/76
[2019-10-02 04:00] VITALS: BP 102/58
[2019-10-02 05:37] LABS: BASOPHILS 0 % (0-2); EOSINOPHILS 0 % (0-7); HEMATOCRIT 39.8 % (42.0-54.0); HEMOGLOBIN 12.3 g/dL (13.5-17.5); IMMATURE GRANULOCYTES 0.2 % (0-5); LYMPHOCYTES 5.5 % (15-50); MCHC 30.9 g/dL (31.0-37.0); MCV 90.7 fL (80.0-100.0); MEAN PLATELET VOLUME 10.9 fL (7.4-10.4); MONOCYTES 8.5 % (2-11); NEUTROPHILS 85.8 % (40-80); PLATELET COUNT 215 10x3/uL (130-400); RBC 4.39 10x6/uL (4.20-6.10); WBC 8.4 10x3/uL (4.8-10.8)
[2019-10-02 06:46] LABS: ALBUMIN 3.2 g/dL (3.4-5.0); ALKALINE PHOSPHATASE 77 U/L (46-116); BILIRUBIN - TOTAL 1.12 mg/dL (0.2-1.3); CALCIUM 8.7 mg/dL (8.5-10.1); CARBON DIOXIDE 27.4 mmol/L (21.0-32.0); CHLORIDE - SERUM 101 mmol/L (98-107); CKMB 3.8 U/L (0.0-3.6); CREATINE KINASE 157 UL (21-232); GLUCOSE 153 mg/dL (74-106); PRO BNP 18997 pg/mL (0-125); SODIUM 138 mmol/L (136-145); TROPONIN-I 0.038 ng/mL (0.000-0.060)
[2019-10-02 06:47] LABS: ALT (SGPT) 833 U/L (10-68); CALC OSMOLALITY 287 mosm/kg (275-300); CREATININE - SERUM 2.3 mg/dL (0.6-1.3); POTASSIUM - SERUM 5.3 mmol/L (3.5-5.1); UREA NITROGEN 37 mg/dL (7-18); eGFR NON AFRICAN AMERICAN 31 mL/min (90-120)
--- NOTE | 2019-10-02 07:30 | NUR ---
A/A/OX4. DENIES ANY PAIN OR DISCOMFORT AT PRESENT TIME AND NO REQUESTS VOICED. ASSESSMENT COMPLETED AND WILL CONTINUE POC. RIGHT AC SL PATENT AND NOTED TO HAVE INPLANTED PORT TO LEFT CHEST BUT HAS NOT BEEN ACCESSED. REMAINS NPO FOR U/S OF ABDOMEN AND STATES IF HE DOESNT GET FOOD SOON, HE WILL BE SICK. OFFERED TO CALL AND GET ORDER FOR ZOFRAN FOR HIM. ORDER OBTAINED BUT BY THE TIME IT WAS RECEIVED AND VERIFIED BY PHARMACY, ULTRASOUND WAS UNDERWAY. BREAKFAST SERVED FOLLOWING US AND PT FEELING BETTER AFTER ABLE TO EAT.
[2019-10-02 09:00] VITALS: BP 106/73
[2019-10-02 13:04] VITALS: BP 104/74
--- NOTE | 2019-10-02 17:29 | NUR ---
REVIEWED ASSESSMENT BY CURTIS FAJARDO AND I CONCUR.
[2019-10-02 17:42] VITALS: BP 116/76
--- NOTE | 2019-10-02 17:46 | NUR ---
PT IS REFUSING TO WEAR TELEMETRY UNIT AT THIS TIME. STATES HE NEEDS A BREAK FROM IT.
[2019-10-02 20:46] VITALS: BP 138/91
[2019-10-03] VITALS: BP 125/84
--- NOTE | 2019-10-03 02:29 | NUR ---
PT REFUSED ANTIBIOTICS, LASIX, AND STERIOD. PT STATES, "I AM NOT TAKING ANYTHING IN MY ARM. GET ME A PAIN PILL." I TRIED TO EDUCATE PT ON THE IMPORTANCE OF MEDICATION. PT STATES, "IT DOESN'T HELP ME! gET ME A DAMN PAIN PILL!" WILL CONTINUE TO MONITOR.
--- NOTE | 2019-10-03 04:21 | NUR ---
I have reviewed this patient and I concur with the Shift Assessment completed by the Licensed Practical Nurse today this shift.
[2019-10-03 04:30] VITALS: BP 122/88
[2019-10-03 05:39] LABS: INR 1.31 (0.85-1.17); PROTIME 15.7 SECONDS (11.6-15.0)
[2019-10-03 05:45] LABS: BASOPHILS 0 % (0-2); EOSINOPHILS 0 % (0-7); HEMATOCRIT 40.2 % (42.0-54.0); HEMOGLOBIN 12.4 g/dL (13.5-17.5); IMMATURE GRANULOCYTES 0.3 % (0-5); LYMPHOCYTES 6.4 % (15-50); MCH 28.1 pg (26.0-34.0); MCHC 30.8 g/dL (31.0-37.0); MEAN PLATELET VOLUME 11.4 fL (7.4-10.4); MONOCYTES 11.2 % (2-11); NEUTROPHILS 82.1 % (40-80); PLATELET COUNT 227 10x3/uL (130-400); RBC 4.42 10x6/uL (4.20-6.10); RDW 14.1 % (11.5-14.5); WBC 9.7 10x3/uL (4.8-10.8)
[2019-10-03 06:03] LABS: ALBUMIN 3.3 g/dL (3.4-5.0); ANION GAP 15.5 mmol/L (8-16); BILIRUBIN - TOTAL 0.81 mg/dL (0.2-1.3); CALCIUM 8.2 mg/dL (8.5-10.1); CARBON DIOXIDE 27.1 mmol/L (21.0-32.0); CREATININE - SERUM 2.5 mg/dL (0.6-1.3); MAGNESIUM - SERUM 2.2 mg/dL (1.8-2.4); POTASSIUM - SERUM 4.6 mmol/L (3.5-5.1); PROTEIN - SERUM 7.3 g/dL (6.4-8.2)
[2019-10-03 08:02] VITALS: BP 122/79
--- NOTE | 2019-10-03 09:26 | NUR ---
AM MEDS GIVEN AT THIS TIME. ALSO PLACED HEART MONITOR BACK ON. PT A/O X4, A LITTLE SOB ON 2L. ENCOURAGED PT TO TAKE IN DEEP BREATHS IN THROUGHT HIS NOSE AND OUT HIS MOUTH. RT AC IV SL. PT DENIES ANY OTHER NEEDS AT THIS TIME. CALL LIGHT IN REACH, NAD NOTED, WILL CONTINUE TO MONITOR.
--- NOTE | 2019-10-03 10:51 | NUR ---
IVPB MAXIPIME HUNG AT THIS TIME. PT TOLD THIS NURSE THAT IF THE ANTIBIOTIC MAKES HIM FEEL WORST THAT HE IS DISCONNECTING IV. TRIED TO EXPLAINED TO PT THAT HE NEEDS THE ANTIBIOTICS TO FEEL BETTER. PT THEN STATED " I NEED MORPHINE AND I WANT TO GET IT ANYTIME I WANT IT. I ALSO NEED A SLEEPING PILL SO I CAN GET SOME REST." INFORMED PT THAT IF THE DOCTOR ORDERED A SLEEPING PILL IT WOULD BE FOR TONIGHT THAT HE CANNOT HAVE IT DURING THE DAY. ALSO THAT DOCTOR WOULD HAVE TO ORDER MORPHINE IF HE FEELS THAT PT NEEDS IT." INFORMED PT THAT ANTIBIOTIC WOULD TAKE ABOUT 30MIN. AND THEN HE WOULD HAVE ANOTHER THAT WOULD TAKE ABOUT 2.5HRS TO INFUSE, AND PT STATED " I AM NOT DOING THAT". ALSO EXPLAINED TO PT THAT A URINE SAMPLE AND SPUTUM SAMPLE IS NEEDED. AT THIS TIME. PT DID NOT SAY ANYTHING AND CLOSED HIS EYES.
[2019-10-03 11:56] VITALS: BP 123/92
[2019-10-03 14:03] VITALS: Ht 182.9 cm; Wt 93.0 kg
--- NOTE | 2019-10-03 15:35 | NUR ---
PT RESTING COMFORTABLY IN BED, STILL HAS NOT PROVIDED URINE SAMPLE EVEN THOUGH HE HAS URINATED SEVERAL TIMES. PT DENIES ANY NEEDS AT THIS TIME. CALL LIGHT IN REACH, NAD NOTED, WILL CONTINUE TO MONITOR.
[2019-10-03 17:20] VITALS: BP 128/83
[2019-10-03 17:58] LABS: APPEARANCE CLEAR (CLEAR); BILIRUBIN NEGATIVE (NEGATIVE); COLOR YELLOW (YELLOW); GLUCOSE NEGATIVE (NEGATIVE); KETONE NEGATIVE (NEGATIVE); NITRITE NEGATIVE (NEGATIVE); PROTEIN NEGATIVE (NEGATIVE); SPECIFIC GRAVITY 1.015 (1.005-1.020); UROBILINOGEN NORMAL (NORMAL)
--- NOTE | 2019-10-03 21:16 | NUR ---
PT LAYING IN BED ALERT AND ORIENTED X4. PT ON 5L O2 WITH ORDERS TO WEAN. PT RR EVEN AND UNLABORED AT THIS TIME. NO S/S OF DISTRESS. PT VERY COOPERATIVE THIS PM. PT DENIES ANY COMPLAINTS AT THIS TIME. BED LOW CALL LIGHT WITHIN REACH. WILL CONTINUE TO MONITOR.
--- NOTE | 2019-10-03 23:44 | NUR ---
REPORT RECIEVED AND ROUNDING COMPLETE. PATIENT LAYIONG IN BED EYES CLOSED BREATHING UNLABORED, SHALLOW, AND EVEN. PATIENT HAS A LEFT CHEST PORT THAT IS NOT ACCESSED AT THIS TIME. PATIENT HAS A RIGHT AC PIV THAT IS SALINE LOCKED. PIV HAS NO S/SX OF INFILTRATION. PATIENT HAS NASAL CANNULA WITH 02 AT 5L. PATIENT SHOWING NO S/SX OF DISTRESS AT THIS TIME. CALL LIGHT WITHIN REACH AND BED IN LOWEST LOCKED POSITION.
[2019-10-04] VITALS: BP 114/78
--- NOTE | 2019-10-04 02:46 | NUR ---
I have reviewed this patient and I concur with the Shift Assessment completed by the Licensed Practical Nurse today this shift.
[2019-10-04 04:30] VITALS: BP 118/68
[2019-10-04 04:49] LABS: BASOPHILS 0.2 % (0-2); EOSINOPHILS 0 % (0-7); HEMATOCRIT 36.9 % (42.0-54.0); HEMOGLOBIN 11.6 g/dL (13.5-17.5); IMMATURE GRANULOCYTES 0.5 % (0-5); LYMPHOCYTES 9.8 % (15-50); MCH 28.2 pg (26.0-34.0); MCHC 31.4 g/dL (31.0-37.0); MCV 89.6 fL (80.0-100.0); MEAN PLATELET VOLUME 10.6 fL (7.4-10.4); NEUTROPHILS 74.5 % (40-80); PLATELET COUNT 191 10x3/uL (130-400); RBC 4.12 10x6/uL (4.20-6.10); RDW 13.9 % (11.5-14.5)
[2019-10-04 04:58] LABS: WBC 6.3 10x3/uL (4.8-10.8)
[2019-10-04 05:13] LABS: ALBUMIN 3.2 g/dL (3.4-5.0); ANION GAP 11.9 mmol/L (8-16); BILIRUBIN - TOTAL 0.77 mg/dL (0.2-1.3); CALCIUM 8.3 mg/dL (8.5-10.1); CARBON DIOXIDE 27.9 mmol/L (21.0-32.0); CREATININE - SERUM 2.1 mg/dL (0.6-1.3); MAGNESIUM - SERUM 2.2 mg/dL (1.8-2.4); POTASSIUM - SERUM 4.8 mmol/L (3.5-5.1); PROTEIN - SERUM 6.2 g/dL (6.4-8.2)
--- NOTE | 2019-10-04 07:00 | NUR ---
RECEIVED REPORT. ASSUMED CARE OF PATIENT. PATIENT RESTING IN BED IN PRONE POSITION. RESP EVEN AND UNLABORED. EASILY AROUSED. NO DISTRESS. DENIES NEEDS AT THIS TIME.
--- NOTE | 2019-10-04 09:30 | NUR ---
PATIENT REFUSED IV MEDICATIONS THIS AM BUT THEN ASKED FOR IV MORPHINE. HE STATES IV MORPHINE WILL MAKE HIM FEEL BETTER. THIS DEMURRAGE MAN EXPLAINED HE HAS TYLENOL IF HE WOULD LIKE SOMETHING FOR PAIN AND HE REFUSED.
[2019-10-04 10:09] VITALS: BP 134/88
--- NOTE | 2019-10-04 12:04 | NUR ---
PATIENT SITTING TO SIDE OF BED CONSUMING NOON MEAL. EXTRA SUGAR AND A CARTON OF MILK PROVIDED. CALL LIGHT WITHIN REACH. NO DISTRESS.
--- NOTE | 2019-10-04 13:07 | EC ---
PATIENT:IVA BROCK DATE OF SERVICE: 10/01/19 SEX: M MEDICAL RECORD: [id number] DATE OF : [birth year] LOCATION:D.M2 D.210 AGE OF PATIENT: 63 ADMISSION DATE: 10/01/19 REFERRING PHYSICIAN: INTERPRETING PHYSICIAN: CHANDNI ORDOÑEZ MD ECHOCARDIOGRAM REPORT ECHO CHARGES 5 ECHO LIMITED Date: 10/02/19 CLINICAL DIAGNOSIS: CHF 2D LIMITED ONLY FOR EF ECHOCARDIOGRAPHIC MEASUREMENTS (adult normal given) AC root (d.<3.7cm) cm LV Septum d (<1.2 cm> cm Valve Excursion cm LV Septum (systole) cm Left Atria (s.<4.0cm> cm LVPW d(<1.2cm) cm RV (d.<2.3cm) cm LVPW (sytole) cm LV diastole(<5.6CM) cm MV E-F(>70mm/sec) cm LV systole cm LVOT Diameter cm MV exc.(>10mm) cm Est.ejection fraction (50-75%) % DOPPLER: LVIT cm/sec A cm/sec E cm/sec LA cm/sec RVSP mmHg LVOT cm/sec AOP1/2T m/s Asc. Ao cm/sec RVOT cm/sec RA cm/sec PA cm/sec AV Gradient Peak mmHg AV Mean mmHg AV Area cm MV Gradient Peak mmHg MV Mean mmHg MV Area cm COMMENTS: Training Officer: Delfin BUNDY Cardiographer: 3 Dr. Tian TAPE# PACS Pericardial Effusion N DATE OF SERVICE: This is 2D only to assess LV function. Grossly LVH appears present. LV internal dimension appears normal. LV function is markedly reduced, EF at 20% to 25%. Aortic valve is tricuspid. Good valve excursion. Left atrium appears dilated. Good mitral valve excursion. Right-sided chambers are grossly normal. TRANSINT:[id number] Voice Confirmation ID: [id number] DOCUMENT ID: [id number] ECHOCARDIOGRAM REPORT [id number] IVA BROCK CHANDNI ORDOÑEZ MD at 1307 CC: [id number] DICTATION DATE: 10/03/19 1007 EXPANSION JOINT FINISHER: 10/03/19 1543 ADM IN [place] [id number] [place] [address]
--- NOTE | 2019-10-04 13:07 | CN ---
PATIENT NAME:IVA BROCK MEDICAL RECORD: [id number] : 59 LOCATION:D.Jeffrey D.2108 ADMIT DATE: 10/01/19 ACCOUNT: [id number] CONSULTING PHYSICIAN: CHANDNI ORDOÑEZ MD REFERRING PHYSICIAN: CRISTOPHER GILL MD DATE OF CONSULTATION: 10/02/2019 HISTORY OF PRESENT ILLNESS: A 63-year-old gentleman with known history of coronary artery disease, status post intervention, most recently the circumflex via Dr. Tapia. He has a history of ischemic cardiomyopathy, multiple admissions for volume overload including episodes of noncompliance due to difficulty getting medications failed admitted with 3-4 day history of progressive cough, dyspnea, some sputum production, gangrene, no hemoptysis. We are seeing her cardiovascular status. PAST MEDICAL HISTORY: Includes, 1. History of coronary artery disease. 2. Intervention of circumflex. 3. Cardiomyopathy, EF 20% to 25% up to 35% on full medical therapy at one point. 4. Hypertension. 5. Hyperlipidemia. 6. Obstructive pulmonary disease. ALLERGIES: None known. HOME MEDICATIONS: Currently include Plavix 75 every day, Lasix 40 every day, has not refilled his CATRACHITO, ARB, or carvedilol. SOCIAL HISTORY: Smokes about a pack a day, drinks on a daily basis. Occasional marijuana use. No set exercise program. He is able to take care of all his ADLs. PHYSICAL EXAMINATION: GENERAL: No acute distress, appears stated age. VITAL SIGNS: Blood pressure 110/76, pulse 90 and regular. HEENT: Normocephalic, atraumatic. NECK: No bruits noted. HEART: Regular. II/ systolic ejection murmur. S3 gallop is noted. LUNGS: Expiratory wheezes. ABDOMEN: Soft, nontender. EXTREMITIES: Pulses are 1+ trace edema. IMPRESSION: 1. Volume overload. 2. Medical noncompliance plus probably URI. Creatinine is worsening, which may limit our medications. At this point, we will have to hold any ARB or beta blockade. Further recommendations will be based on clinical course. We will repeat 2D, color flow, M-mode, echo. TRANSINT:[id number] Voice Confirmation ID: [id number] DOCUMENT ID: [id number] CONSULT REPORT [id number] IVA BROCK CHANDNI ORDOÑEZ MD at 1307 CC: [id number] DICTATION DATE: 10/02/19 1010 SECTIONAL BELT MOLD ASSEMBLER: 10/02/19 1757 ADM IN [facility] [address] [place] [id number]
[2019-10-04 14:12] VITALS: BP 136/89
--- NOTE | 2019-10-04 15:00 | NUR ---
ICE CREAM X 2 PROVIDED UPON REQUEST. NO DISTRESS. CALL LIGHT WITHIN REACH.
--- NOTE | 2019-10-04 18:39 | NUR ---
RESTING IN BED WITH EYES CLOSED. EASILY AROUSED. NO DISTRESS. CALL LIGHT WITHIN REACH.
[2019-10-04 19:00] VITALS: BP 136/88
--- NOTE | 2019-10-04 19:45 | NUR ---
PT LAYING IN BED ALERT AND ORIENTED X4. NO S/S OF DISTRESS. RR EVEN AND UNLABORED. BED LOW CALL LIGHT WITHIN REACH.
[2019-10-04 20:00] VITALS: BP 125/72
[2019-10-04 22:06] LABS: HEPATITIS C ANTIBODY >11.0 S/CO RAT (0.0-0.9)
[2019-10-05 04:00] VITALS: BP 133/81
[2019-10-05 04:43] LABS: BASOPHILS 0 % (0-2); EOSINOPHILS 0.3 % (0-7); HEMATOCRIT 38.3 % (42.0-54.0); HEMOGLOBIN 11.7 g/dL (13.5-17.5); IMMATURE GRANULOCYTES 0.3 % (0-5); LYMPHOCYTES 10.9 % (15-50); MCHC 30.5 g/dL (31.0-37.0); MEAN PLATELET VOLUME 10.4 fL (7.4-10.4); MONOCYTES 22.6 % (2-11); NEUTROPHILS 65.9 % (40-80); PLATELET COUNT 189 10x3/uL (130-400); RBC 4.18 10x6/uL (4.20-6.10); RDW 14.1 % (11.5-14.5); WBC 5.9 10x3/uL (4.8-10.8)
[2019-10-05 04:55] LABS: MCV 91.6 fL (80.0-100.0)
[2019-10-05 04:59] LABS: ALBUMIN 3.2 g/dL (3.4-5.0); ANION GAP 12.8 mmol/L (8-16); BILIRUBIN - TOTAL 0.66 mg/dL (0.2-1.3); CALCIUM 8.4 mg/dL (8.5-10.1); POTASSIUM - SERUM 4.8 mmol/L (3.5-5.1); PROTEIN - SERUM 6.6 g/dL (6.4-8.2)
[2019-10-05 05:02] LABS: CREATININE - SERUM 1.5 mg/dL (0.6-1.3)
--- NOTE | 2019-10-05 07:48 | NUR ---
PATIENT IS RESTING QUIETLY AT THIS TIME. RECIEVED REPORT. PATIENT DENIES ANY NEEDS AT THIS TIME.
[2019-10-05 07:59] VITALS: BP 128/80
[2019-10-05 11:23] VITALS: BP 129/73
[2019-10-05 15:47] VITALS: BP 149/87
--- NOTE | 2019-10-05 19:30 | NUR ---
PT REFUSING TO WEAR TELEMETRY. VITAL SIGNS STABLE. HE DENIES PAIN OR NEEDS. HE STATES HE JUST WANTS SOME ICE CREAM AND WANTS TO BE LEFT ALONE. BED LOW. CALL LIGHT WITHIN REACH.
[2019-10-05 20:00] VITALS: BP 133/70
--- NOTE | 2019-10-06 01:10 | NUR ---
PT LEFT ROOM FOR 20 MIN OR SO. PT STATES HE WAS JUST WALKING IN THE HALLWAY. HE IS REFUSING VITAL SIGNS AND TELEMETRY. HE DENIES PAIN OR NEEDS AT THIS TIME. HE IS NOW LAYING IN BED. RESPIRATIONS EVEN AND UNLABORED. THE BED IS LOW AND CALL LIGHT WITHIN REACH.
[2019-10-06 05:23] LABS: BASOPHILS 0 % (0-2); EOSINOPHILS 0.2 % (0-7); HEMATOCRIT 36.9 % (42.0-54.0); HEMOGLOBIN 11.2 g/dL (13.5-17.5); IMMATURE GRANULOCYTES 0.4 % (0-5); LYMPHOCYTES 13.1 % (15-50); MCH 27.7 pg (26.0-34.0); MCHC 30.4 g/dL (31.0-37.0); MCV 91.1 fL (80.0-100.0); MEAN PLATELET VOLUME 10.1 fL (7.4-10.4); NEUTROPHILS 70.3 % (40-80); PLATELET COUNT 196 10x3/uL (130-400); RBC 4.05 10x6/uL (4.20-6.10); RDW 13.9 % (11.5-14.5); WBC 4.9 10x3/uL (4.8-10.8)
[2019-10-06 05:37] LABS: ALBUMIN 3.1 g/dL (3.4-5.0); ANION GAP 6.2 mmol/L (8-16); BILIRUBIN - TOTAL 0.7 mg/dL (0.2-1.3); CALCIUM 8.3 mg/dL (8.5-10.1); CARBON DIOXIDE 33.2 mmol/L (21.0-32.0); CREATININE - SERUM 1.3 mg/dL (0.6-1.3); MAGNESIUM - SERUM 1.9 mg/dL (1.8-2.4); POTASSIUM - SERUM 4.4 mmol/L (3.5-5.1); PROTEIN - SERUM 6.6 g/dL (6.4-8.2)
--- NOTE | 2019-10-06 06:00 | NUR ---
PT REMINDED TO USE URINAL SO WE CAN KEEP UP WITH HIS INTAKE AND OUTPUT ORDERED. PT VERBALIZED UNDERSTANDING.
--- NOTE | 2019-10-06 09:10 | NUR ---
PATIENT IV INFILTRATED IN THE RIGHT ARM. HE REFUSED TO LET ME REMOVE IT UNTIL ANOTHER NURSE LOOKED AT IT AND VERIFIED THAT IT WAS INFILTRATED. MY CHARGE NURSE WAS NOT ABLE TO IT IS HER CUSIN AND SO I ASKED THE CHANCELLOR, AND SHE AGREED THAT IT WAS INFILTRATED. REMOVED IV FROM RIGHT AC WITH CATHETER INTACT. PATIENT REFUSED TO ALLOW ME TO PLACE ANOTHER IV. WILL REPORT TO THE DR, BECAUSE THE PATIENT IS REFUSING TO WEAR HIS TELEMETRY, TAKE HIS LOVENOX, GET IV MEDICATIONS AND ALSO REFUSED HIS VITAL SIGNS LAST NIGHT. WILL CALL THE DR ABOUT THE IV LASIX THAT WAS ORDERED, BECAUSE I WAS UNABLE TO GIVE THAT MEDICATION THE IV HAD GONE BAD.
[2019-10-06 10:39] VITALS: BP 134/79
[2019-10-06] MEDS ORDERED: VIBRAMYCIN 100100 MG PO (11:34)
[2019-10-06] MEDS ORDERED: OMNICEF300 MG PO (11:34)
[2019-10-06] MEDS ORDERED: PROTONIX40 MG PO (11:36)
[2019-10-06] MEDS ORDERED: PREDNISONE10 MG PO (11:36)
--- NOTE | 2019-10-06 13:24 | NUR ---
PER JANET, RT SHE HAS TRIED SEVERAL TIMES TO DO HIS WALK TEST AND HE IS NOT IN HIS ROOM. SHE IS ON THE WAY NOW TO DO THE TESTING.
--- NOTE | 2019-10-06 13:50 | NUR ---
PATIENT AMBULATED IN HALLWAY WITH RT ON ROOM AIR. PATIENT SP02 92-94% WITH AMBULATION.
--- NOTE | 2019-10-06 14:37 | NUR ---
DISCHARGE COMPLETE PAPERS SIGNED. FLU SHOT GIVEN IN R DELTOID ORDERED. PATIENT TEACHING COMPLETE. HE WENT DOWNSTAIRS VIA WHEEL CHAIR AND HIS FAMILY IS BRINGING HIM HOME. ALL BELONGINGS WENT HOME WITH THE PATIENT.
--- NOTE | 2019-10-06 18:18 | MORECARE ---
CASE MANAGEMENT DISCHARGE SUMMARY PATIENT: IVA BROCK UNIT: [id number] ADM DATE: 10/01/19 AGE: 63 : 59 SEX: M ROOM/BED: D.2108 AUTHOR: JHONNA MARROQUIN PHYSICIAN: REFERRING PHYSICIAN: CRISTOPHER GILL MD DATE OF SERVICE: 10/06/19 Discharge Plan Patient Name: IVA BROCK [facility] : 1955 Planned Disposition: Home Anticipated Discharge Date: 10/06/19 Discharge Date: 10/06/2019 Expected LOS: 5 Initial Reviewer: [email or web address] Initial Review Date: 10/06/2019 Generated: 10/06/19 7:18 pm DCPIA - Discharge Planning Initial Assessment Updated by [email or web address]: Alcon Aragon on 10/06/19 6:17 pm * Is the patient Alert and Oriented? Yes * How many steps to enter\exit or inside your home? NONE * PCP NONE * Pharmacy [facility] * Preadmission Environment Home with Family * ADLs Independent * Equipment None * Other Equipment NO MEDICAL EQUIPMENT PROVIDER PREFERNECE * List name and contact numbers for known caregivers / representatives who currently or will assist patient after discharge: VIRAJ DWYERT, AUNT, * Verbal permission to speak to the caregivers and representatives has been obtained from the patient. N/A * Community resources currently utilized None * Please name any agencies selected above. NONE * Additional services required to return to the preadmission environment? No * Can the patient safely return to the preadmission environment? Yes * Has this patient been hospitalized within the prior 30 days at any hospital? No Patient Name: IVA BROCK Page [phone] at 1818 All edits/amendments must be made on the electronic document DICTATION DATE: 10/06/191817 ASSEMBLER CLIP ON SUNGLASSES: MACARENA 10/06/191817 RPT#: [id number] DC DATE:10/06/19 STATUS: DIS IN [facility] [address] [facility] [place] [id number] END OF REPORT
--- NOTE | 2019-10-06 18:27 | MORECARE ---
CASE MANAGEMENT DISCHARGE SUMMARY PATIENT: IVA BROCK UNIT: [id number] ADM DATE: 10/01/19 AGE: 63 : 59 SEX: M ROOM/BED: D.2109 AUTHOR: CARA,DOC PHYSICIAN: REFERRING PHYSICIAN: CRISTOPHER GILL MD DATE OF SERVICE: 10/06/19 Discharge Plan Patient Name: IVA BROCK Facility: [facility]:[place] : 1955 Planned Disposition: Home Anticipated Discharge Date: 10/06/19 Discharge Date: 10/06/2019 Expected LOS: 5 Initial Reviewer: [email or web address] Initial Review Date: 10/06/2019 Generated: 10/06/19 7:26 pm Comments DCP- Discharge Planning Updated by [email or web address]: Alcon Aragon on 10/06/19 5:[address] Patient Name: IVA BROCK Encounter No: [id number] : 1955 Primary Insurance: MEDICAID [place] Anticipated DC Date: 10-06-2019 Planned Disposition: Home DISCHARGE PLANNING NOTE: CM MET WITH PT IN ROOM TO DISCUSS DISCHARGE PLANNING AND NEEDS. PT REPORTS LIVING AT HOME INDEPENDENTLY WITH A FRIEND. PT HAS NO MEDICAL EQUIPMENT AND NO OUTSIDE SERVICES ASSISTING IN THE HOME. CM DISCUSSED AVAILABILITY OF HOME HEALTH, REHAB SERVICES AND MEDICAL EQUIPMENT. PT DENIES DISCHARGE NEEDS, REPORTS HIS FRIEND WILL PICK HER UP FOR DISCHARGE HOME. PT WAS TESTED FOR OXYGEN AND DID NOT QUALIFY PRIOR TO LEAVING. SQL MANAGER NURSE NOTIFIED. DELPHINE Bee DCPIA - Discharge Planning Initial Assessment Updated by [email or web address]: Alcon Aragon on 10/06/19 6:17 pm * Is the patient Alert and Oriented? Yes * How many steps to enter\exit or inside your home? NONE * PCP NONE * Pharmacy [facility] * Preadmission Environment Home with Family * ADLs Independent * Equipment None * Other Equipment NO MEDICAL EQUIPMENT PROVIDER PREFERNECE * List name and contact numbers for known caregivers / representatives who currently or will assist patient after discharge: VIRAJ STEELE, AUNT, * Verbal permission to speak to the caregivers and representatives has been obtained from the patient. N/A * Community resources currently utilized None * Please name any agencies selected above. NONE * Additional services required to return to the preadmission environment? No * Can the patient safely return to the preadmission environment? Yes * Has this patient been hospitalized within the prior 30 days at any hospital? No Last DP export: 10/06/19 5:18 Patient Name: IVA BROCK Page [phone] at 1827 All edits/amendments must be made on the electronic document DICTATION DATE: 10/06/191825 CHAUFFEUR MOTORBUS: MACARENA 10/06/191825 RPT#: [id number] DC DATE:10/06/19 STATUS: DIS IN [facility] [address] [place] [address] END OF REPORT
== END 2019-10-06 14:39 | disposition home or self-care (01) | DRG 871 ==
LOC: D.ER 11:14 → D.M2 14:27
PROVIDERS: Family Medicine; Internal Medicine Pulmonary Disease; ADMIT Emergency Medicine; ATTEND Emergency Medicine
DX: A41.9 Sepsis, unspecified organism (principal); J96.01 Acute respiratory failure with hypoxia; J18.9 Pneumonia, unspecified organism; I50.23 Acute on chronic systolic (congestive) heart failure; I13.0 Hypertensive heart and chronic kidney disease with heart failure and stage 1 through stage 4 chronic kidney disease, or unspecified chronic kidney disease; F17.213 Nicotine dependence, cigarettes, with withdrawal; N17.9 Acute kidney failure, unspecified; J98.11 Atelectasis; I42.9 Cardiomyopathy, unspecified; E78.5 Hyperlipidemia, unspecified; F12.90 Cannabis use, unspecified, uncomplicated; E87.5 Hyperkalemia; N18.9 Chronic kidney disease, unspecified; I25.10 Atherosclerotic heart disease of native coronary artery without angina pectoris; D63.1 Anemia in chronic kidney disease; J43.9 Emphysema, unspecified

== ENCOUNTER 2019-10-14 19:19 | Inpatient (IN) | payer MEDICAID ==
[~2019-10-14] VITALS: Ht 182.9 cm; Wt 65.0 kg
--- NOTE | ~2019-10-14 | OP ---
PATIENT NAME: IVA BROCK MEDICAL RECORD: [id number] :59 LOCATION:D.M2 D.2122 ADMISSION DATE:10/15/19 SURGEON: CINTHIA ROCK MD DATE OF OPERATION: 10/17/2019 PROCEDURES: 1. PTCA and stent to the RCA. 2. PTCA and stent to the left circumflex. 3. IFR. 4. Left heart catheterization. 5. Selective coronary angiography. 6. Left ventriculogram. INDICATION: Non-Q-wave myocardial infarction. PROCEDURE IN DETAIL: After informed consent was obtained and after detailed explanation of risks, benefits as well as alternative therapies, the patient elected to proceed with angiogram and angioplasty. The right radial area was prepped and draped in normal sterile fashion. Right radial artery was cannulated via modified Seldinger technique with placement of 6-Zambian sheath. All catheters exchanged through this sheath. FINDINGS: The left ventriculogram was performed in standard 30-degree AGUILAR view, reveals global hypokinesis, ejection fraction markedly reduced at 10-15%. SELECTIVE CORONARY ANGIOGRAPHY: 1. Left main is with no significant angiographic disease. 2. Left anterior descending has moderate irregularities but no flow-limiting stenosis. 3. The left circumflex has a 70% stenosis in the proximal vessel and the IFR was abnormal at 0.84. 4. Right coronary artery has 90% stenosis in the mid vessel. PTCA AND STENT OF THE RCA: The stent used was a 3.5 x 26 mm Prince. Result was 0% residual stenosis. PTCA AND STENT OF THE LEFT CIRCUMFLEX: The stent used was a 3.5 x 22 mm Warren. Result was 0% residual stenosis. OVERALL IMPRESSION: Successful percutaneous transluminal angioplasty stent of the circumflex and RCA, both going from 70% to 90% initial stenosis to 0% residual stenosis. TRANSINT:[id number] Voice Confirmation ID: [id number] DOCUMENT ID: [id number] CINTHIA ROCK MD CC: [id number] DICTATION DATE: 10/17/19 1538 CERTIFIED MEDICAL RECORDS CODER: 10/17/19 2337 [place] [address]
--- NOTE | ~2019-10-14 | DS ---
PATIENT:IVA SHI :59 MEDICAL RECORD: [id number] DISCHARGE SUMMARY ADMISSION DATE: 10/15/19 DISCHARGE DATE: DATE OF DISCHARGE: 10/18/2019 DIAGNOSES: 1. Non-Q-wave myocardial infarction. 2. Coronary artery disease. 3. Percutaneous transluminal coronary angioplasty stent left circumflex and right coronary artery this admission. HOSPITAL COURSE: Mr. Shi presents with a non-Q-wave myocardial infarction. He has a severe cardiomyopathy, history of being noncompliant; however, underwent cardiac catheterization revealing severe 2-vessel coronary artery disease, was discharged home with the addition of Plavix to his medical regimen. No statin was undertaken secondary to him not tolerating these in the past and stated he would not take these; however, he says he will take the Plavix. We will see him back in 1 month. TRANSINT:[id number] Voice Confirmation ID: [id number] DOCUMENT ID: [id number] CINTHIA ROCK MD CC: [id number] DICTATION DATE: 10/18/19800 TITRATOR: 10/18/19 0851 ADM IN [facility] [address] [place] [address]
--- NOTE | ~2019-10-14 | HEMODYNAMI ---
PATIENT:IVA BROCK MEDICAL RECORD: [id number] : 59 LOCATION:[place] [address] ADMISSION DATE: 10/15/19 Generatedon:10/18/20197:29 Patient name: IVA BROCK Patient #: [id number] SSN: : 1955 Date of study: 10/17/2019 Page: Of Hemodynamic Procedure Report Patient Data Patient Demographics Procedure consent was obtained First Name: IVA Gender: Male Last Name: VINOD : 1955 Patient #: [id number] Age: 63 year(s) Race: Unknown Additional ID: [id number] Contact details Address: [address] [place] [address] State: [place] City: [place] Zip code: [address] Past Medical History Allergies: No known allergies Admission Admission Data Admission Date: 10/15/2019 Admission Time: 18:13 Room #: [facility] Procedure Procedure Types Cath Procedure Diagnostic Procedure LHC LHC w/Coronaries FFR/IVUS FFR Initial Sedation Charges Moderate Sedation up to 15 minutes Procedure Description Procedure Date Procedure Date: 10/17/2019 Procedure Start Time: 15:15 Procedure Staff Name Function Phyllis Danielle RT Monitor Berto Tapia MD Performing Physician Hali Montana RT Scrub Kell England RN Digital Media Director Procedure Data Cath Procedure Fluoroscopy Diagnostic fluoroscopy Total fluoroscopy Time: 4.8 time: 4.8 min min Diagnostic fluoroscopy Total fluoroscopy dose: dose: 1379 mGy 1379 mGy Contrast Material Contrast Material Type Amount (ml) Isovue 300 95 Entry Location Entry Primary Successful Side Size Upsize Upsize Entry Closure Michaels ccessful Closure Location (Fr) 1 (Fr) 2 (Fr) Remarks Device Remarks Radial Right 6 Fr Mechanical artery Short Compression Estimated blood loss: 5 ml Diagnostic catheters Device Type Used For End Catheter Placement DIAGNOSTIC Pedro 110cm 5 Multi-vessel Fr catheter ([id number]) Angiography Procedure Complications No complications Procedure Medications Medication Administration Route Dosage 0.9% NaCl I.V. 100 ml/hr Oxygen etCO2 Nasal cannula 2 l/min Lidocaine 2% added to field 20 Heparin Flush Bag added to field 2 bags (1000units/500ml NS) Radial Cocktail added to field 1 syringe (Verapamil 2mg/Nitro 400mcg/Heparin 1500units) Versed I.V. 2 mg Fentanyl I.V. 50 mcg Heparin Bolus I.V. 4000 units Hemodynamics Rest Heart Rate: 69 (bpm) Snapshots Pre Cath Intra NCS Post Cath Vital Signs Time Heart Resp SPO2 etCO2 NIBP (mmHg) Rhythm Pain Sedation Rate (ipm) (%) (mmHg) Status Level (bpm) 15:05:35 69 13 100 67 110/88(102) NSR 0 (11) 10(A) , No pain 15:09:41 69 18 99 63.7 112/75(94) NSR 0 (11) 10(A) , No pain 15:13:41 70 19 98 67.4 110/78(101) NSR 0 (11) 10(A) , No pain 15:17:47 69 19 97 52.5 107/67(94) NSR 0 (11) 10(A) , No pain 15:21:44 68 17 97 62.9 110/81(99) NSR 0 (11) 9(A) , No pain 15:25:52 67 19 97 67.4 108/70(100) NSR 0 (11) 9(A) , No pain 15:29:58 65 17 98 60.7 117/76(95) NSR 0 (11) 10(A) , No pain 15:34:08 66 10 97 67.4 113/72(92) NSR 0 (11) 10(A) , No pain Medications Time Medication Route Dose Verified Delivered Reason Not es Effectiveness by by 15:05:13 0.9% NaCl I.V. 100 Berto Kell used for ml/hr Willie England contract project manager 15:05:22 Oxygen etCO2 2 l/min Berto Kell used for Nasal Willie England procedure cannula RN 15:05:27 Lidocaine 2% added 20ml Berto Thomson for local to vial Willie Tapia MD anesthetic field 15:05:31 Heparin Flush added 2 bags Berto Thomson used for Bag to Willie Tapia MD procedure (1000units/500ml field NS) 15:16:02 Radial Cocktail added 1 Berto Thomson used for (Verapamil to syringe Willie Tapia MD procedure 2mg/Nitro field 400mcg/Hepari 15:16:13 Versed I.V. 2 mg Berto Castorena for sedation Willie England RN 15:16:18 Fentanyl I.V. 50 mcg Berto Castorena for sedation Willie England RN 15:23:10 Heparin Bolus I.V. 4000 Berto Castorena for marita ified units Willie England anticoagulation with Dr. ADAMS Tapia Procedure Log Time Note 14:50:28 Hali Montana RT(R) sent for patient. Start room use. 15:04:33 Vital chart was started 15:05:13 0.9% NaCl 100 ml/hr I.V. was administered by Kell England RN; used for procedure; Verbal order read back and verified. 15:05:22 Oxygen 2 l/min etCO2 Nasal cannula was administered by Kell England RN; used for procedure; Verbal order read back and verified. 15:05:27 Lidocaine 2% 20ml vial added to field was administered by Berto Tapia MD; for local anesthetic; Verbal order read back and verified. 15:05:31 Heparin Flush Bag (1000units/500ml NS) 2 bags added to field was administered by Berto Tapia MD; used for procedure; Verbal order read back and verified. 15:05:39 Time tracking: Regular hours (M-F 7:00 - 5:00) 15:05:43 Plan of Care:Hemodynamics will remain stable., Cardiac rhythm will remain stable., Comfort level will be maintained., Respiratory function will remain adequate., Patient/ family verbilizes understanding of procedure., Procedure tolerated without complication., Recovers from procedure without complications.. 15:05:48 Patient received from Med II to CCL 2 Alert and oriented. Tansferred to table in Supine position. 15:05:50 Signed procedure consent form obtained from patient. 15:05:51 Correct patient and procedure confirmed by team. 15:05:51 Warm blankets applied, and komal hugger turned on for patient comfort. 15:05:52 ECG and BP/O2 sat monitors applied to patient. 15:05:54 Baseline sample Acquired. 15:06:00 Rhythm: sinus rhythm 15:06:02 Full Disclosure recording started 15:06:06 H&P Date Dictated: 10/17/2019 New H&P dictated by physician.. 15:06:08 Pre-procedure instructions explained to patient. 15:06:09 Pre-op teaching completed and patient verbalized understanding. 15:06:10 Family in waiting room. 15:06:11 Patient NPO since Midnight. 15:06:14 Is the patient allergic to Iodine/contrast media? No. 15:06:15 Was the patient premedicated? Yes 15:06:16 Is patient on blood thinner?Yes 15:06:18 ACC The patient was administered the following blood thiners within the last 24 hours: ACCPlavix 15:06:20 Patient diabetic? No. 15:06:23 Previous problem with sedation/anesthesia? No ? 15:06:25 Snore? Yes 15:06:26 Sleep apnea? No 15:06:27 Deviated septum? Yes 15:06:28 Opens mouth fully? Yes 15:06:29 Sticks out tongue? No 15:06:46 Airway obstruction? Yes bronchitis 15:06:53 Dentures? No ? 15:07:03 Pre procedure: right dorsailis pedis pulse 2+ Normal; easily identifiable; not easily obliterated 15:07:06 Pre procedure: left dorsailis pedis pulse 2+ Normal; easily identifiable; not easily obliterated 15:07:09 Patient pain scale 0/10 ?. 15:07:15 IV patent on arrival in left forearm with 0.9% NaCl at KVO. 15:07:17 Lab results completed and on chart. 15:07:22 Stress Test: no; N/A ? 15:13:39 Risk of Mortality: 1.9 15:13:44 Risk of blood transfusion: 6.4 15:13:48 Risk of PETAR: 3.6 15:13:52 Right Radial & Right Groin area was prepped with chlora-prep and draped in sterile fashion 15:13:53 Sharps counted by scrub and verified by R.N. 15:13:53 Alarms reviewed by R. N. 15:13:55 --------ALL STOP TIME OUT------ 15:13:55 Physician arrived 15:13:56 Final Timeout: patient, procedure, and site verified with staff and physician. All members of the team are in agreement. 15:13:57 Right Radial & Right Groin site verified by team. 15:14:01 Fire Safety Assessment: A--An alcohol-based skin anteseptic being used preoperatively., C--Open oxygen or nitrous oxide is being used., D--An ESU, laser, or fiber-optic light is being used. 15:14:05 Physical assessment completed. ASA score P 2 - A patient with mild systemic disease as per Berto Tapia MD. 15:14:18 3b) 30-44 Moderately reduced kidney function. 15:14:30 Maximum allowable contrast dose (3.7 X eGFR X 0.75)122 ml. 15:14:34 Sedation plan: IV Moderate Sedation Medication:Versed, Fentanyl 15:15:27 Procedure started. 15:15:32 Local anesthetic to right radial artery with Lidocaine 2% by Berto Tapia MD.INITIAL ACCESS ONLY 15:15:35 Zero performed for pressure channel P1 15:15:52 A 6 Fr Short sheath was inserted into the Right Radial artery 15:16:02 Use device set Radial Dx or PCI 15:16:02 Radial Cocktail (Verapamil 2mg/Nitro 400mcg/Heparin 1500units) 1 syringe added to field was administered by Berto Tapia MD; used for procedure; Verbal order read back and verified. 15:16:03 Medline Cath Pack ([id number]) opened to sterile field. 15:16:03 ACIST Syringe (55963) opened to sterile field. 15:16:04 ACIST Hand Control (30549) opened to sterile field. 15:16:04 Bag Decanter (2001S) opened to sterile field. 15:16:05 Tegaderm 4 x 4 (1626W) opened to sterile field. 15:16:05 ACIST Manifold (61934) opened to sterile field. 15:16:06 MBrace Wrist Support ([id number]) opened to sterile field. 15:16:09 SHEATH 6FR RAIN (9415459) opened to sterile field. 15:16:09 EMERALD Guide Wire (829-317) opened to sterile field. 15:16:13 Versed 2 mg I.V. was administered by Kell England RN; for sedation; Verbal order read back and verified. 15:16:18 Fentanyl 50 mcg I.V. was administered by Kell England RN; for sedation; Verbal order read back and verified. 15:18:10 A DIAGNOSTIC Pedro 110cm 5 Fr catheter ([id number]) was advanced over the wire and used for Multi-vessel Angiography. 15:18:25 LV hemodynamics recorded. 15:18:26 LV gram done using AGUILAR 15:18:29 Injector settings: Ml/sec: 5, Volume: 15, 15:18:37 EF : 15 % 15:18:45 LCA angiography performed. 15:18:47 Injector settings: Ml/sec: 3, Volume: 6, 15:20:37 Injector settings: Ml/sec: 3, Volume: 6, 15:20:40 RCA angiography performed. 15:20:43 Injector settings: Ml/sec: 3, Volume: 6, 15:20:46 Catheter removed. 15:20:47 Proceeding to intervention. 15:21:01 [place] Verrata Plus pressure wire (11538E) opened to sterile field. 15:21:03 INFLATOR Merit BasixCompak (IH0237) opened to sterile field. 15:22:39 GUIDE 6FR AR 2.0 catheter ([id number]) opened to sterile field. 15:22:40 GUIDE 6FR XBLAD 3.5 catheter ([id number]) opened to sterile field. 15:23:10 Heparin Bolus 4000 units I.V. was administered by Kell England RN; for anticoagulation; verified with Dr. Tapia Verbal order read back and verified. 15:23:19 CHOICE PT Extra Support 182cm wire ([id number]) opened to sterile field. 15:24:23 6 Fr xblad 3.5 guide catheter was inserted over the wire 15:24:27 FFR/IFR wire advanced. 15:24:29 Baseline FFR 1. 15:24:30 Wire advanced across lesion. 15:25:18 mCirc lesion measured at 0.84 with IFR 15:26:55 Place stent Inflation Number: 1 A ELBERT RX 3.5 x 22 stent ([id number]) was prepped and advanced across the Mid CX 70. The stent was deployed at 13 HUMZA for 0:10 (min:sec) 0. 15:27:01 Inflation number: 2 The stent balloon was then re-inflated across the Mid CX 0 to 17 HUMZA for 0:10 (min:sec) . 15:27:15 Stent catheter was removed intact over wire. 15:27:19 Guide catheter removed. 15:27:19 Wire removed. 15:27:28 6 Fr ar 2 guide catheter was inserted over the wire 15:30:22 Place stent Inflation Number: 1 A ELBERT RX 3.5 x 26 stent ([id number]) was prepped and advanced across the Prox RCA 90. The stent was deployed at 17 HUMZA for 0:10 (min:sec) 0. 15:32:41 TR BAND Large ([id number]) opened to sterile field. 15:33:53 Sheath removed intact; hemostasis achieved with Mechanical Compression to the Right Radial artery. 15:33:55 Procedure ended.(Physican Out) 15:34:05 Fluoroscopy time 04.80 minutes. 15:34:13 Fluoroscopy dose: 1379 mGy 15:34:13 Flurop Dose total: 1379 15:34:20 Dose Area Product 58039 mGy/cm. 15:34:24 Contrast amount:Isovue 300 95ml. 15:34:27 Maximum allowable dose exceeded? No. 15:34:28 Sharps counted by scrub and verified by R.N. 15:34:31 [place] band inflated with 10cc of air. 15:34:34 Insertion/operative site no bleeding no hematoma. 15:34:40 ACT drawn and resulted at 263 seconds. (normal therapeutic range 180-240 seconds). 15:34:43 Post-op/insertion site Right Radial artery dressed using a 4 x 4 and Tegaderm. 15:34:44 Post Procedure Pulses reassessed and unchanged 15:34:46 Post procedure rhythm: unchanged. 15:34:49 Estimated blood loss: 5 ml 15:34:51 Patient needs reinforcement of post procedure teaching. 15:34:51 Post procedure instruction explained to patient.Patient verbalizes understanding. 15:35:07 Procedure type changed to Cath procedure, Diagnostic procedure, LHC, [facility] w/Coronaries, FFR/IVUS, FFR Initial, Sedation Charges, Moderate Sedation up to 15 minutes 15:35:08 Procedure and supply charges have been captured, reviewed, submitted and are correct. 15:35:13 Procedure Complication : No complications 15:35:18 Vital chart was stopped 15:35:21 [facility] Findings: MVD- PCI performed (see procedure note) 15:35:29 4Vessel Findings: mild to moderate disease (<70%, see procedure notes) 15:35:31 See physician's report for complete and final results. 15:35:31 Operative report dictated upon procedure completion. 15:35:48 Patient transfered to [facility] with Stretcher. 15:36:04 ACC-PCI Only Patient was given prescriptions, or instructed by Berto Tapia MD to start/continue the following medications upon discharge: Plavix 15:36:06 End room use (Document Last) 15:36:38 End room use (Document Last) 15:37:11 End room use (Document Last) 15:38:05 Full Disclosure recording stopped Intervention Summary Intervention Notes Time ActionType Lesion and Equipment Used Action# Pressure Duration Attributes 15:26:55 Place stent Mid CX ELBERT RX 3.5 x 1 13 00:10 22 stent ([id number]) 15:27:01 Reinflate Mid CX ELBERT RX 3.5 x 2 17 00:10 stent 22 stent balloon ([id number]) 15:30:22 Place stent Prox RCA ELBERT RX 3.5 x 1 17 00:10 26 stent ([id number]) Device Usage Item Name Manufacture Quantity Catalog Number Hospital Part Current Minimal Lot# / Charge Number Stock Stock Serial# Code ACIST Syringe Acist 1 84501 057632 534420 071118 20 (05723) Medical Systems Inc Medline Cath Medline 1 [id number] 409932 47898 123457 5 Pack ([id number]) Bag Decanter Microtek 1 2001S 985122 23917 380599 5 (2001S) Medical Inc. ACIST Hand Acist 1 82770 952797 825890 583272 5 Control Medical (18582) Systems Inc ACIST Manifold Acist 1 72411 322882 224520 797365 5 (04545) Medical Systems Inc Tegaderm 4 x 4 3M 1 1626W 930775 493456 242337 5 (1626W) MBrace Wrist Advanced 1 140-0250-00 449578 30479 324721 5 Support Vascular ([id number]) Dynamics EMERALD Guide Cardinal 1 872-115 657043 778750 655836 5 Wire (472-570) Health SHEATH 6FR Cardinal 1 1214259 426058 4868514 479559 5 RAIN (5988928) Health DIAGNOSTIC Terumo 1 40-2250 932973 830621 924329 5 Pedro 110cm 5 Fr catheter (104612) [place] 1 85610A 471984 041429593 412887 5 Verrata Plus pressure wire (06895W) INFLATOR Merit Merit 1 SX8975 690282 236507 215176 15 SkataznhDBVu Medical (PO3307) GUIDE 6FR AR Medtronic 1 [id number] 879836 61073 023384 1 2.0 catheter ([id number]) GUIDE 6FR Cardinal 1 94301679 531803 090998 042106 10 XBLAD 3.5 Health catheter (37227940) CHOICE PT [place] 1 [id number] 371781 579307 460654 5 Extra Support Scientific 182cm wire ([id number]) ELBERT RX 3.5 x Medtronic 1 [id number] 854508 9324653 724388 5 [id number] 22 stent ([id number]) ELBERT RX 3.5 x Medtronic 1 [id number] 346864 1199227 355894 5 [id number] 26 stent ([id number]) TR BAND Large Terumo 1 [id number] 472080 003970 514588 40 ([id number]) Signature Audit [place] Stage Time Signature Unsigned Intra-Procedure 10/17/2019 Phyllis Danielle 3:36:38 PM RT(R) Intra-Procedure 10/17/2019 Kell England 3:37:11 PM RN Intra-Procedure 10/17/2019 Berto Tapia MD 3:39:25 PM 10/18/2019 7:27:35 AM Intra-Procedure 10/18/2019 Berto Tapia 7:29:08 AM Signatures Monitor : Phyllis Danielle RT Signature : Date : Time : Performing Physician : Signature : Berto Tapia MD Date : Time : [address] [place] [address]
[~2019-10-14 19:19] MED LIST changes: +OMNICEF300 MG PO; +PREDNISONE10 MG PO; +VIBRAMYCIN 100100 MG PO
[2019-10-14 20:05] LABS: BASOPHILS 0.4 % (0-2); EOSINOPHILS 0.7 % (0-7); HEMATOCRIT 37.6 % (42.0-54.0); HEMOGLOBIN 11.6 g/dL (13.5-17.5); IMMATURE GRANULOCYTES 0.3 % (0-5); LYMPHOCYTES 11.2 % (15-50); MCH 27.2 pg (26.0-34.0); MCHC 30.9 g/dL (31.0-37.0); MCV 88.3 fL (80.0-100.0); MEAN PLATELET VOLUME 9.4 fL (7.4-10.4); MONOCYTES 14.6 % (2-11); NEUTROPHILS 72.8 % (40-80); RBC 4.26 10x6/uL (4.20-6.10); RDW 14.3 % (11.5-14.5); WBC 7.1 10x3/uL (4.8-10.8)
[2019-10-14 20:09] LABS: PLATELET COUNT 254 10x3/uL (130-400)
[2019-10-14 20:12] VITALS: BP 126/76
[2019-10-14 20:19] LABS: CALC OSMOLALITY 290 mosm/kg (275-300); CALCIUM 8.5 mg/dL (8.5-10.1); CARBON DIOXIDE 27.1 mmol/L (21.0-32.0); CHLORIDE - SERUM 102 mmol/L (98-107); CREATININE - SERUM 1.7 mg/dL (0.6-1.3); GLUCOSE 126 mg/dL (74-106); POTASSIUM - SERUM 3.9 mmol/L (3.5-5.1); SODIUM 139 mmol/L (136-145); UREA NITROGEN 42 mg/dL (7-18); eGFR NON AFRICAN AMERICAN 44 mL/min (90-120)
[2019-10-14 20:36] LABS: ALKALINE PHOSPHATASE 101 U/L (46-116); ALT (SGPT) 105 U/L (10-68); CKMB 5.8 U/L (0.0-3.6); CREATINE KINASE 232 UL (21-232); PROTEIN - SERUM 7.1 g/dL (6.4-8.2)
[2019-10-14 20:37] LABS: TROPONIN-I 0.102 ng/mL (0.000-0.060)
[2019-10-14 20:39] LABS: APTT 27.8 SECONDS (22.8-39.4); INR 1.21 (0.85-1.17); PROTIME 14.8 SECONDS (11.6-15.0)
[2019-10-14 21:00] VITALS: BP 120/72
[2019-10-14 21:45] VITALS: BP 114/73
--- NOTE | 2019-10-14 23:15 | NUR ---
RECIEVED TO ROOM 2121 FROM ER VIA STRETCHER. PT A&O. RESPERATIONS EVEN ON RA. IV TO LEFT AC, SL SITE CLEAN AND DRY. HISTORY AND MED REC OBTAINED. PLACED ON TELEMETRY. BED LOW, CL IN REACH.
[2019-10-15 00:04] VITALS: BMI 29.9
--- NOTE | 2019-10-15 03:26 | NUR ---
NOTIFIED BY REPAIRER AND CHECKER THAT PTS O2 SAT IN THE 80'S ON RA, PLACED PT ON O2 AT 2 LITERS, O2 SATS IMMEDIATLEY INCREASE TO 92% OR GREATER.
[2019-10-15 04:30] VITALS: BP 123/89
[2019-10-15 09:47] VITALS: BP 114/78
--- NOTE | 2019-10-15 10:00 | NUR ---
AM MEDS GIVEN AT THIS TIME. PT A/O X4, A LITTLE SOB ON 2L. ENCOURAGED PT TO TAKE DEEP BREATHS. BREAKFAST TRAY ORDERED FOR PT. PT DENIES ANY NEEDS AT THIS TIME. CALL LIGHT IN REACH, NAD NOTED, WILL CONTINUE TO MONITOR.
--- NOTE | 2019-10-15 14:40 | NUR ---
PT RESTING COMFORTABLY IN BED, DENIES ANY NEEDS AT THIS TIME. CALL LIGHT IN REACH, NAD NOTED, WILL CONTINUE TO MONITOR.
[2019-10-15 16:00] VITALS: BP 130/83
[2019-10-15 18:28] VITALS: BP 122/79
[2019-10-15 20:00] VITALS: BP 111/63
--- NOTE | 2019-10-15 20:00 | NUR ---
REPORT AND INITIAL ROUNDS COMPLETED. PT ALERT/ORIENTED. RESTING IN BED. O2 @ 3L/NC. SR PER TELEMETRY. LEFT A/C SALINE LOCK. CPOC. CALL LIGHT IN REACH.
[2019-10-16 00:05] VITALS: BP 104/80
[2019-10-16 04:36] VITALS: BP 102/74
[2019-10-16 07:35] VITALS: BP 117/78
[2019-10-16 11:28] VITALS: BP 134/71
--- NOTE | 2019-10-16 12:00 | NUR ---
CONSENTS SIGNED BY PT AND PLACED ON CHART. PT DENIES ANY NEEDS AT THIS TIME. CALL LIGHT IN REACH, NAD NOTED, WILL CONTNUE TO MONITOR.
[2019-10-16 12:59] LABS: ANION GAP 13.9 mmol/L (8-16); CALCIUM 8.1 mg/dL (8.5-10.1)
[2019-10-16 13:00] LABS: CREATININE - SERUM 2.6 mg/dL (0.6-1.3); POTASSIUM - SERUM 4.9 mmol/L (3.5-5.1)
[2019-10-16 16:06] VITALS: BP 122/73
--- NOTE | 2019-10-16 19:20 | NUR ---
RECEIVED REPORT, WILL ASSUME CARE OF PT, EXPLAINED HE WILL BE NPO AFTER MIDNIGHT, FOR CATH IN AM, DENIES ANY NEEDS AT THIS TIME, BED IS LOW, SRX2, CALLLIGHT IN REACH, WILL CONTINUE PLAN OF CARE
[2019-10-16 20:45] VITALS: BP 100/50
[2019-10-17 00:15] VITALS: BP 102/66
[2019-10-17 04:18] VITALS: BP 96/65
--- NOTE | 2019-10-17 08:09 | NUR ---
ASSESSMENT DONE. DENIES NEEDS
[2019-10-17 09:20] VITALS: BP 119/80
--- NOTE | 2019-10-17 09:56 | NUR ---
I have reviewed this patient and I concur with the Shift Assessment completed by the Licensed Practical Nurse today this shift.
[2019-10-17 12:10] VITALS: BP 111/63
--- NOTE | 2019-10-17 14:50 | NUR ---
TO AGENCY SALES REPRESENTATIVE PER BED
[2019-10-17 14:53] VITALS: Ht 182.9 cm; Wt 65.0 kg
--- NOTE | 2019-10-17 15:47 | NUR ---
RETURN FROM RESPITE CARE PROVIDER PER BED, TR BAND NOTED AT RT WRIST. WITHOUT BLEEDING NOTED.
--- NOTE | 2019-10-17 17:26 | NUR ---
WITHOUT CHANGES OR DISTRESS NOTED AT THIS TIME.
[2019-10-17 17:56] VITALS: BP 116/64
--- NOTE | 2019-10-17 19:26 | NUR ---
ASSESSMENT COMPELTE. PT A&O. VENTI MASK IN USE WITH O2 AT 15 LITERS IV TO LEFT HAND WITH NS INFUSING AT 200 CC/HR, IV SITE CLEAN AND DRY. RIGHT WRIST WITH TR BAND INFLATED. NO S/S BLEEDING, SWELLING OR HEMATOMA NOTED. PT DENIES PAIN OR NEEDS, BED LOW, CL IN REACH.
--- NOTE | 2019-10-17 19:36 | NUR ---
ASSESSMENT COMPLETE. PT IN BED RESTING, AWAKES TO VERBAL STIMULI. RESPERATIONS LABORED, O2 AT 15 LITERS VIA VENTI MASK. IV TO LEFT WIRST WITH NS INFUSING AT 200 CC/HR, IV SITE CLEAN AND DRY. INFLATED TR BAND NOTED TO RIGHT WRIST, BRUISING NOTED FROM WRIST AREA TO AC. PT STATED THAT " THAT HAPPEND YESTERDAY FROM A NEEDLE STICK" MARKED AREA WITH MARKER TO MONITOR GROWTH. INFORMED PT THAT I WILL BE BACK LATER TO RELEASE AIR FROM BAND. INFORMED PT TO RESTRICT MOVEMENT OF RIGHT ARM/WIRST.
[2019-10-17 20:00] VITALS: BP 141/78
--- NOTE | 2019-10-17 20:34 | NUR ---
MORPHINE 2 MG GIVEN FOR C/O PAIN. NO CHANGES NOTED TO BRUISING ON RIGHT ARM, 1/2 OF AIR RELEASED FROM TR BAND, NO BLEEDING NOTED.
--- NOTE | 2019-10-17 21:03 | NUR ---
PT GETTING UP OUT OF BED, WAVING ARMS ALL AROUND, YELLING THAT HE HAS TO PEE. URINAL TAKEN TO PT, ENCOURAGED PT TO USE URINAL, HOWEVER HE HAD ALREADY URINTAED ON THE FLOOR. TR BAND COMPLETLY DEFLATED, NO BLEEDING NOTED, NO FURTHER BRUISING NOTED. REMINDED PT NOT TO MOVE ARM AROUND TOO MUCH DUE TO RISK OF BLEEDING.
[2019-10-18 00:33] VITALS: BP 116/73
--- NOTE | 2019-10-18 01:19 | NUR ---
I have reviewed this patient and I concur with the Shift Assessment completed by the Licensed Practical Nurse today this shift.
--- NOTE | 2019-10-18 01:23 | NUR ---
PLACED PTS VENTI-MASK BACK ON PTS FACE, WARM BLANKET PLACED OVER PT.
--- NOTE | 2019-10-18 03:58 | NUR ---
RESTING ON LEFT SIDE, RESPERATIONS NONLABORED, NO S/S DISTRESS NOTED.
[2019-10-18 04:00] VITALS: BP 116/74
--- NOTE | 2019-10-18 07:20 | NUR ---
ASSESSMENT DONE. BRUISING NOTED TO RT WRIST TO AC. MARKED WITH MARKER ON 7P. NO CHANGES NOTED.
--- NOTE | 2019-10-18 08:02 | HP ---
PATIENT: IVA SHI MEDICAL RECORD: [id number] ACCOUNT: [id number] LOCATION:[address] : [birth year] ADMISSION DATE: 10/15/19 PCP: SARAH NIELSON HISTORY AND PHYSICAL EXAMINATION DIAGNOSES: 1. Non-Q-wave myocardial infarction. 2. Unstable angina. 3. Coronary artery disease. 4. Previous PTCA and stent. 5. Congestive heart failure, chronic systolic dysfunction. 6. Cardiomyopathy. HISTORY OF PRESENT ILLNESS: Mr. Shi is known to us. Past history of ischemic cardiomyopathy, last ejection fraction was 20% to 25%. Last cardiac stent was in April. For the past 2 weeks, he has had increasing episodes of chest pain, chest discomfort compatible with angina as well as increasing shortness of breath, lower extremity edema. Found to be in congestive heart failure. Also troponin is elevated compatible with non-Q-wave myocardial infarction. He is currently pain free. His EKG has no acute ST-T abnormalities. He has had 1 dose of IV Lasix and has had some diuresis. Still feels short of breath. BNP was elevated at 14,000. PHYSICAL EXAMINATION: CONSTITUTIONAL/GENERAL APPEARANCE: Well nourished, well developed, appears stated age. EYES: Lids and conjunctivae noninjected. No discharge. No pallor. ENT: Lips within normal limit. No cyanosis. No pallor. NECK: Carotid arteries, bilateral normal upstroke. No bruits. No thrills. No jugular venous pressure or distention. CERVICAL LYMPH NODES: Nontender. Nonenlarged. THYROID: Not enlarged. No nodules. CARDIOVASCULAR: Precordial exam, nondisplaced. No heaves or pericardial thrills. Rate and rhythm, regular. Heart sounds, normal S1, normal S2. No S3, no gallop, no rub. Systolic murmur, not heard. Diastolic murmur, not heard. RESPIRATORY: Respiratory effort, unlabored. Normal curvature. No thoracic deformity. No chest wall tenderness. Percussion, resonant. Auscultation, clear. No wheezes, no rales, no rhonchi. ABDOMEN: Soft, nondistended, nontender. No abdominal pain, no vomiting and normal appetite. MUSCULOSKELETAL: No joint tenderness, normal gait, normal tone. SKIN: Warm and dry. OVERALL IMPRESSION: Congestive heart failure, non-Q-wave myocardial infarction. At this time, we will increase his Lasix to 40 mg every 8 hours. I do not think he needs inotropic therapy. I think he has good diuresis with just the Lasix; however, if he continues to be in congestive heart failure, we will add inotropic therapy. Continue his aspirin and Plavix. Proceed with coronary angiography when stable from a respiratory standpoint. TRANSINT:[id number] Voice Confirmation ID: [id number] DOCUMENT ID: [id number] HISTORY AND PHYSICAL [id number] VINOD,CINTHIA VAZQUEZ MD at 0802 CC: [id number] DICTATION DATE: 10/15/19926 ASPARAGUS BUNCHER: 10/15/19 1026 ADM IN [place] [id number] [place] [address]
[2019-10-18 08:17] VITALS: BP 105/60
--- NOTE | 2019-10-18 08:34 | NUR ---
UPON ADMIT PATIENT HAS NOT HAD A FLU SHOT, WHEN ASKED, HE REFUSED. STATES HE HAD ONE LAST ADMIT.
[2019-10-18] MEDS ORDERED: BETAPACE 80 MG80 MG PO (08:43)
[2019-10-18] MEDS ORDERED: BAYER CHEWABLE81 MG PO (08:45)
[2019-10-18] MEDS ORDERED: PLAVIX75 MG PO (09:16)
--- NOTE | 2019-10-18 09:17 | NUR ---
I have reviewed this patient and I concur with the Shift Assessment completed by the Licensed Practical Nurse today this shift.
--- NOTE | 2019-10-18 09:46 | NUR ---
DC GIVEN TO PT
--- NOTE | 2019-10-18 10:12 | NUR ---
DC HOME PER PERSONAL CAR
--- NOTE | 2019-10-18 17:03 | MORECARE ---
CASE MANAGEMENT DISCHARGE SUMMARY PATIENT: IVA BROCK UNIT: [id number] ADM DATE: 10/15/19 AGE: 63 : 59 SEX: M ROOM/BED: D.2122 AUTHOR: JOHNNA MARROQUIN PHYSICIAN: REFERRING PHYSICIAN: CINTHIA ROCK MD DATE OF SERVICE: 10/18/19 Discharge Plan Patient Name: IVA BROCK [facility] [facility] 1955 Planned Disposition: Home Anticipated Discharge Date: 10/18/19 Discharge Date: 10/18/2019 Expected LOS: 3 Initial Reviewer: [email or web address] Initial Review Date: 10/18/2019 Generated: 10/18/19 6:02 pm DCPIA - Discharge Planning Initial Assessment Updated by [email or web address]: Alcon Aragon on 10/18/19 5:02 pm * Is the patient Alert and Oriented? Yes * How many steps to enter\exit or inside your home? NONE * PCP NONE * Pharmacy [facility] * Preadmission Environment Home with Family * ADLs Independent * Equipment None * Other Equipment NO MEDICAL EQUIPMENT PROVIDER PREFERENCE * List name and contact numbers for known caregivers / representatives who currently or will assist patient after discharge: VIRAJ STEELE, AUNT, * Verbal permission to speak to the caregivers and representatives has been obtained from the patient. N/A * Community resources currently utilized None * Please name any agencies selected above. NONE * Additional services required to return to the preadmission environment? No * Can the patient safely return to the preadmission environment? Yes * Has this patient been hospitalized within the prior 30 days at any hospital? Yes Patient Name: IVA BROCK Page [id number] at 1703 All edits/amendments must be made on the electronic document DICTATION DATE: 10/18/191701 DIRECTOR PUBLIC POLICY: MACARENA 10/18/191701 RPT#: [id number] DC DATE:10/18/19 STATUS: DIS IN [facility] [address] [place] [address] END OF REPORT
--- NOTE | 2019-10-18 17:12 | MORECARE ---
CASE MANAGEMENT DISCHARGE SUMMARY PATIENT: IVA BROCK UNIT: [id number] ADM DATE: 10/15/19 AGE: 63 : 59 SEX: M ROOM/BED: D.9422 AUTHOR: CARA,DOC PHYSICIAN: REFERRING PHYSICIAN: CINTHIA ROCK MD DATE OF SERVICE: 10/18/19 Discharge Plan Patient Name: IVA BROCK Facility: [facility]:[place] : 1955 Planned Disposition: Home Anticipated Discharge Date: 10/18/19 Discharge Date: 10/18/2019 Expected LOS: 3 Initial Reviewer: [email or web address] Initial Review Date: 10/18/2019 Generated: 10/18/19 6:12 pm Comments DCP- Discharge Planning Updated by [email or web address]: Alcon Aragon on 10/18/19 4:[address] Patient Name: IVA BROCK Admission Status: ER Accout number: [id number] Admission Date: 10-15-2019 : 1955 Admission Diagnosis: Attending: VICTORIANO ROCK Current LOS: 3 Anticipated DC Date: 10-18-2019 Planned Disposition: Home Primary Insurance: MEDICAID [place] Discharge Planning Comments: CM MET WITH PT IN ROOM TO DISCUSS DISCHARGE PLANNING AND NEEDS. PT REPORTS LIVING AT HOME INDEPENDENTLY WITH ADULT FRIEND. PT HAS NO MEDICAL EQUIPMENT AND NO OUTSIDE SERVICES ASSISTING IN THE HOME. CM DISCUSSED AVAILABILITY OF HOME HEALTH, REHAB SERVICES AND MEDICAL EQUIPMENT. PT DENIES DISCHARGE NEEDS, REPORTS A FRIEND WILL PICK HIM UP FOR DISCHARGE HOME. HEAD OF INTEGRATED MEDIA NURSE NOTIFIED. Taping Supervisor: Alcon Aragon DCPIA - Discharge Planning Initial Assessment Updated by [email or web address]: Alcon Aragon on 10/18/19 5:02 pm * Is the patient Alert and Oriented? Yes * How many steps to enter\exit or inside your home? NONE * PCP NONE * Pharmacy [facility] * Preadmission Environment Home with Family * ADLs Independent * Equipment None * Other Equipment NO MEDICAL EQUIPMENT PROVIDER PREFERENCE * List name and contact numbers for known caregivers / representatives who currently or will assist patient after discharge: VIRAJ STEELE, AUNT, * Verbal permission to speak to the caregivers and representatives has been obtained from the patient. N/A * Community resources currently utilized None * Please name any agencies selected above. NONE * Additional services required to return to the preadmission environment? No * Can the patient safely return to the preadmission environment? Yes * Has this patient been hospitalized within the prior 30 days at any hospital? Yes Last DP export: 10/18/19 4:02 Patient Name: IVA BROCK Page [id number] at 1712 All edits/amendments must be made on the electronic document DICTATION DATE: 10/18/191711 WHITTLING ROOM OPERATOR: MACARENA 10/18/191711 RPT#: [id number] DC DATE:10/18/19 STATUS: DIS IN [facility] [address] [place] [address] END OF REPORT
== END 2019-10-18 10:13 | disposition home or self-care (01) | DRG 247 ==
LOC: D.ER 19:19 → D.M2 22:09 → OBSVTIME 22:09 → D.M2 10-15 18:13 → D.SDCHOLD 10-17 13:35 → D.M2 10-17 13:35 → D.SDCHOLD 10-17 15:11 → D.M2 10-17 15:11
PROVIDERS: Family Medicine; ADMIT Internal Medicine Interventional Cardiology; ATTEND Internal Medicine Interventional Cardiology
PROC: 4A023N7 Measurement of Cardiac Sampling and Pressure, Left Heart, Percutaneous Approach (ICD-10-PCS; 2019-10-17)
PROC: B2111ZZ Fluoroscopy of Multiple Coronary Arteries using Low Osmolar Contrast (ICD-10-PCS; 2019-10-17)
PROC: B2151ZZ Fluoroscopy of Left Heart using Low Osmolar Contrast (ICD-10-PCS; 2019-10-17)
PROC: 027135Z Dilation of Coronary Artery, Two Arteries with Two Drug-eluting Intraluminal Devices, Percutaneous Approach (ICD-10-PCS; principal; 2019-10-17 14:50)
PROC: 4A033BC Measurement of Arterial Pressure, Coronary, Percutaneous Approach (ICD-10-PCS; 2019-10-17 14:50)
DX: I21.4 Non-ST elevation (NSTEMI) myocardial infarction (principal); I50.22 Chronic systolic (congestive) heart failure; I42.9 Cardiomyopathy, unspecified; I25.110 Atherosclerotic heart disease of native coronary artery with unstable angina pectoris; I11.0 Hypertensive heart disease with heart failure; Z72.0 Tobacco use

== ENCOUNTER 2019-10-22 01:04 | Emergency (ER) | payer MEDICAID ==
[~2019-10-22] VITALS: Ht 182.9 cm; Wt 95.5 kg
[~2019-10-22 01:04] MED LIST changes: +BAYER CHEWABLE81 MG PO; +BETAPACE 80 MG80 MG PO
[2019-10-22 01:10] VITALS: Ht 182.9 cm; Wt 95.5 kg
[2019-10-22 01:40] LABS: BASOPHILS 0.2 % (0-2); HEMATOCRIT 38.8 % (42.0-54.0); HEMOGLOBIN 11.5 g/dL (13.5-17.5); IMMATURE GRANULOCYTES 0.2 % (0-5); LYMPHOCYTES 15.4 % (15-50); MCH 26.7 pg (26.0-34.0); MCHC 29.6 g/dL (31.0-37.0); MEAN PLATELET VOLUME 9.7 fL (7.4-10.4); MONOCYTES 17.2 % (2-11); RBC 4.31 10x6/uL (4.20-6.10); RDW 14.4 % (11.5-14.5); WBC 4.4 10x3/uL (4.8-10.8)
[2019-10-22 01:41] LABS: PLATELET COUNT 178 10x3/uL (130-400)
[2019-10-22 01:50] LABS: CALC OSMOLALITY 287 mosm/kg (275-300); CARBON DIOXIDE 33.1 mmol/L (21.0-32.0); CHLORIDE - SERUM 105 mmol/L (98-107); GLUCOSE 87 mg/dL (74-106); POTASSIUM - SERUM 4.8 mmol/L (3.5-5.1); SODIUM 144 mmol/L (136-145); UREA NITROGEN 17 mg/dL (7-18); eGFR NON AFRICAN AMERICAN 81 mL/min (90-120)
[2019-10-22 02:11] LABS: ALBUMIN 3.2 g/dL (3.4-5.0); ALKALINE PHOSPHATASE 80 U/L (46-116); ALT (SGPT) 55 U/L (10-68); BILIRUBIN - TOTAL 0.72 mg/dL (0.2-1.3); CKMB 3.5 U/L (0.0-3.6); CREATINE KINASE 133 UL (21-232); PRO BNP 9806 pg/mL (0-125); PROTEIN - SERUM 6.7 g/dL (6.4-8.2)
[2019-10-22 02:16] LABS: APTT 27.3 SECONDS (22.8-39.4); INR 1.1 (0.85-1.17); PROTIME 13.7 SECONDS (11.6-15.0)
[2019-10-22 03:09] VITALS: BP 131/88
== END 2019-10-22 03:09 | disposition home or self-care (01) ==
LOC: D.ER 01:04
PROVIDERS: Family Medicine
DX: I11.0 Hypertensive heart disease with heart failure (principal); I50.9 Heart failure, unspecified; I25.2 Old myocardial infarction; I25.10 Atherosclerotic heart disease of native coronary artery without angina pectoris; J44.9 Chronic obstructive pulmonary disease, unspecified; Z72.0 Tobacco use

== ENCOUNTER 2019-11-03 11:31 | Inpatient (IN) | payer MEDICAID ==
[~2019-11-03] VITALS: Ht 182.9 cm; Wt 91.2 kg
--- NOTE | 2019-11-03 11:48 | NUR ---
EKG DONE, SHOWN TO
[2019-11-03 12:24] LABS: BASOPHILS 0.2 % (0-2); EOSINOPHILS 0.7 % (0-7); HEMATOCRIT 38.1 % (42.0-54.0); HEMOGLOBIN 11.2 g/dL (13.5-17.5); LYMPHOCYTES 8.9 % (15-50); MCHC 29.4 g/dL (31.0-37.0); MCV 88.4 fL (80.0-100.0); MEAN PLATELET VOLUME 9.9 fL (7.4-10.4); MONOCYTES 14.9 % (2-11); NEUTROPHILS 75.3 % (40-80); PLATELET COUNT 205 10x3/uL (130-400); RBC 4.31 10x6/uL (4.20-6.10); RDW 14.7 % (11.5-14.5); WBC 5.4 10x3/uL (4.8-10.8)
[2019-11-03 12:32] LABS: APTT 26.3 SECONDS (22.8-39.4); INR 1.09 (0.85-1.17)
[2019-11-03 12:35] LABS: CALC OSMOLALITY 287 mosm/kg (275-300); CALCIUM 8.2 mg/dL (8.5-10.1); CARBON DIOXIDE 29.6 mmol/L (21.0-32.0); CHLORIDE - SERUM 106 mmol/L (98-107); CREATININE - SERUM 1.4 mg/dL (0.6-1.3); GLUCOSE 76 mg/dL (74-106); POTASSIUM - SERUM 4.1 mmol/L (3.5-5.1); SODIUM 143 mmol/L (136-145); UREA NITROGEN 25 mg/dL (7-18); eGFR NON AFRICAN AMERICAN 55 mL/min (90-120)
[2019-11-03 13:05] LABS: ALBUMIN 3.5 g/dL (3.4-5.0); ALKALINE PHOSPHATASE 85 U/L (46-116); ALT (SGPT) 32 U/L (10-68); BILIRUBIN - TOTAL 0.66 mg/dL (0.2-1.3); CKMB 3.6 U/L (0.0-3.6); CREATINE KINASE 110 UL (21-232); PRO BNP 9593 pg/mL (0-125); PROTEIN - SERUM 6.9 g/dL (6.4-8.2); TROPONIN-I 0.054 ng/mL (0.000-0.060)
--- NOTE | 2019-11-03 17:33 | MORECARE ---
CASE MANAGEMENT DISCHARGE SUMMARY PATIENT: IVA BROCK UNIT: [id number] ADM DATE: 11/03/19 AGE: 63 : 59 SEX: M ROOM/BED: D.0510 AUTHOR: JOHNNA MARROQUIN PHYSICIAN: REFERRING PHYSICIAN: MALINDA FELIX MD DATE OF SERVICE: 11/03/19 Discharge Plan Patient Name: IVA BROCK [facility] : 1955 Planned Disposition: Anticipated Discharge Date: Discharge Date: Expected LOS: Initial Reviewer: [email or web address] Initial Review Date: 11/03/2019 Generated: 11/03/19 6:32 pm Comments DCP- Discharge Planning Updated by [email or web address]: Mikayla Priest on 11/03/19 3:[address] CM met with patient to discuss initial discharge planning. Patient is in agreement to proceed with the assessment. Patient is alert/oriented. Stairs/steps: 0. PCP: . Pharmacy: [facility]. Patient states he has been able to obtain all of his medications "I think". Patient lives with a friend at present. States he "will get his own apartment the Nov and will need someone to come in and help him". HHS: No. DME: No. Patient gives permission to speak with family members. Emergency contact: Aria Armstrong (aunt) [phone]. Patient is Independent with all ADL's, medication management. CM discussed the availability of HH, Rehab, DME services. Patient denies the need for additional services at this time and feels safe returning to previous environment. Patient has been hospitalized within the past 30 days. Patient denies the use of community resources WASTE WATER OR WATER PLANT OPERATOR. Transportation at time of discharge: a friend (unknown). CM will assist PRN with dc needs/plans. Patient Name: IVA BROCK Page [id number] at 1733 All edits/amendments must be made on the electronic document DICTATION DATE: 11/03/191731 KNOCKDOWN WORKER: MACARENA 11/03/191731 RPT#: [id number] DC DATE: STATUS: ADM IN [facility] [address] [place] [address] END OF REPORT
--- NOTE | 2019-11-03 17:40 | MORECARE ---
CASE MANAGEMENT DISCHARGE SUMMARY PATIENT: IVA BROCK UNIT: [id number] ADM DATE: 11/03/19 AGE: 63 : 59 SEX: M ROOM/BED: D.5134 AUTHOR: CARA,DOC PHYSICIAN: REFERRING PHYSICIAN: MALINDA FELIX MD DATE OF SERVICE: 11/03/19 Discharge Plan Patient Name: IVA BROCK Facility: [facility]:[place] : 1955 Planned Disposition: Anticipated Discharge Date: Discharge Date: Expected LOS: Initial Reviewer: [email or web address] Initial Review Date: 11/03/2019 Generated: 11/03/19 6:40 pm Comments DCP- Discharge Planning Updated by [email or web address]: Mikayla Priest on 11/03/19 3:[address] CM met with patient to discuss initial discharge planning. Patient is in agreement to proceed with the assessment. Patient is alert/oriented. Stairs/steps: 0. PCP: . Pharmacy: [facility]. Patient states he has been able to obtain all of his medications "I think". Patient lives with a friend at present. States he "will get his own apartment the Nov and will need someone to come in and help him". HHS: No. DME: No. Patient gives permission to speak with family members. Emergency contact: Aria Armstrong (aunt) [phone]. Patient is Independent with all ADL's, medication management. CM discussed the availability of HH, Rehab, DME services. Patient denies the need for additional services at this time and feels safe returning to previous environment. Patient has been hospitalized within the past 30 days. Patient denies the use of community resources THIRD HAND. Transportation at time of discharge: a friend (unknown). CM will assist PRN with dc needs/plans. DCPIA - Discharge Planning Initial Assessment Updated by [email or web address]: Mikayla Priest on 11/03/19 5:34 pm * Is the patient Alert and Oriented? Yes * How many steps to enter\\exit or inside your home? * PCP ? * Pharmacy [facility] * Preadmission Environment Home with Family * ADLs Independent * Equipment None * Other Equipment NA * List name and contact numbers for known caregivers / representatives who currently or will assist patient after discharge: Aria Armstrong (aunt) [phone] * Verbal permission to speak to the caregivers and representatives has been obtained from the patient. Yes * Community resources currently utilized None * Please name any agencies selected above. NA * Additional services required to return to the preadmission environment? No * Can the patient safely return to the preadmission environment? Yes * Has this patient been hospitalized within the prior 30 days at any hospital? Yes Last DP export: 11/03/19 4:33 p Patient Name: IVA BROCK Page [id number] at 1740 All edits/amendments must be made on the electronic document DICTATION DATE: 11/03/191739 TEXTILE SUPERVISOR: MACARENA 11/03/191739 RPT#: [id number] DC DATE: STATUS: ADM IN [facility] [address] [place] [address] END OF REPORT
--- NOTE | 2019-11-03 17:41 | NUR ---
1736-RECEIVED REPORT FROM ERIN IN THE ER.
--- NOTE | 2019-11-03 17:51 | NUR ---
RECEIVED TO ROOM VIA WHEELCHAIR. DENIES NEEDS AT THIS TIME. MOANING. WILL ADMIT.
[2019-11-03] MEDS ORDERED: NITROSTAT0.4 MG SL (17:54)
[2019-11-03 17:58] VITALS: BP 145/95; BMI 29.2
[2019-11-03 21:25] VITALS: BP 124/82
[2019-11-04] VITALS: BP 123/91
[2019-11-04 04:00] VITALS: BP 118/67
[2019-11-04 06:30] LABS: BASOPHILS 0.4 % (0-2); EOSINOPHILS 0.9 % (0-7); HEMATOCRIT 38.5 % (42.0-54.0); HEMOGLOBIN 11.3 g/dL (13.5-17.5); IMMATURE GRANULOCYTES 0.2 % (0-5); LYMPHOCYTES 11.1 % (15-50); MCH 26.2 pg (26.0-34.0); MCHC 29.4 g/dL (31.0-37.0); MCV 89.1 fL (80.0-100.0); MEAN PLATELET VOLUME 10.3 fL (7.4-10.4); MONOCYTES 15.5 % (2-11); NEUTROPHILS 71.9 % (40-80); PLATELET COUNT 177 10x3/uL (130-400); RBC 4.32 10x6/uL (4.20-6.10); RDW 14.8 % (11.5-14.5); WBC 4.6 10x3/uL (4.8-10.8)
[2019-11-04 06:54] LABS: ANION GAP 8.2 mmol/L (8-16); CALCIUM 8.4 mg/dL (8.5-10.1); CARBON DIOXIDE 36.5 mmol/L (21.0-32.0); CREATININE - SERUM 1.3 mg/dL (0.6-1.3); POTASSIUM - SERUM 3.7 mmol/L (3.5-5.1)
--- NOTE | 2019-11-04 07:42 | NUR ---
REPORT RECEIVED FROM KEY PUNCH OPERATOR AND PATIENT CARE ASSUMED. PATIENT LAYING IN BED AWAKE, ALERT AND ORIENTED X 4. PATIENT IS STABLE . PT DENIES ANY NEEDS OR PAIN. WILL CONTINUE WITH PLAN OF CARE. SR UP X 2 BED IN LOW POSITION AND CALL LIGHT IN REACH.
[2019-11-04 09:19] VITALS: BP 134/79
[2019-11-04 13:29] VITALS: BP 123/76
--- NOTE | 2019-11-04 13:30 | NUR ---
PATIENT UP TO BR TO URINATE MULTIPLE TIMES PER HOUR. PATIENT KEEPS TAKING OFF TELEMETRY AND THROWING IT ON THE FLOOR. WHEN QUESTIONING PATIENT ABOUT REMOVAL OF TELEMETRY STATE"I DONT WANT THAT DAMN THING" STRONGLY ENCOURAGED PATIENT TO TO USE TELEMETRY AND USE URINAL INSTEAD CONTINUALLY GETTING OUT OF BED. PATIENT REFUSES. WILL CONTINUE WITH PLAN OF CARE. SR UP X 2BED IN LOW POSITION AND CALL LIGHT IN REACH.
[2019-11-04 14:19] LABS: UDS - AMPHET NEGATIVE QUAL (NEGATIVE); UDS - BARB NEGATIVE QUAL (NEGATIVE); UDS - BENZO NEGATIVE QUAL (NEGATIVE); UDS - COCAINE NEGATIVE QUAL (NEGATIVE); UDS - OPIATE NEGATIVE QUAL (NEGATIVE); UDS - PCP NEGATIVE QUAL (NEGATIVE); UDS - THC NEGATIVE QUAL (NEGATIVE)
[2019-11-04 14:22] VITALS: BMI 29.1
--- NOTE | 2019-11-04 14:30 | NUR ---
PATIENT CONTINUES TO BE NON COMPLIANT WITH KEEPING URINE, USING URINAL AND FLUSHING URINE DOWN COMMODE. ORDER RECEIVED FROM DR GOODE FOR DOBUTAMINE DRIP AND TELEMETRY TO BE PLACE BACK ON. PATIENT ADAMANTLY REFUSED TO HAVE DOBUTAMINE DRIP AND TELEMETRY REPLACE. CALLED DR GOODE AND INFORMED OF PATIENTS DECISION AND NO NEW ORDERS RECEIVED. WILL CONTINUE TO MONITOR. SR UP X 2 BED IN LOW POSITION AND CALL LIGHT IN REACH.
[2019-11-04 15:15] VITALS: Ht 182.9 cm; Wt 91.2 kg
[2019-11-04 15:29] LABS: % SATURATION 7 % (15-55); IRON 29 ug/dl (35-150); TOTAL IRON BIND CAPACITY 412 ug/dl (260-445); UNSAT IRON BIND CAPACITY 383 ug/dl (150-375)
--- NOTE | 2019-11-04 18:36 | NUR ---
ENTERED ROOM . PATIENT IS COMING OUT OF TOILET. INQUIRED IF PATIENT LEFT URINE IN MEASURING HAT . PATIENT STATES 'HELL NO." AGAIN STRONGLY ENCOURAGED PATIENT TO BE COMPLIANT TO NO AVAIL. WILL CONTINUE TO MONITOR. SR UP X 2 BED IN LOW POSITION AND CALL LIGHT IN REACH.
[2019-11-04 18:37] VITALS: BP 135/78
--- NOTE | 2019-11-04 19:30 | NUR ---
RECEIVED REPORT, WILL ASSUME CARE OF PT, EXPLAINED HE NEEDS TO USE A URINAL, SO WE CAN KEEP UP WITH OUTPUT, ASKING FOR AN ICECREAM(PROVIDED), ALLISON ANY OTHER NEED AT THIS TIME, BED IS LOW, SRX2, CALL LIGHT IN REACH, WILL CONTINUE PLAN OF CARE
[2019-11-04 20:00] VITALS: BP 118/66
[2019-11-05] VITALS: BP 112/60
[2019-11-05 04:00] VITALS: BP 114/74
--- NOTE | 2019-11-05 07:07 | NUR ---
I have reviewed this patient and I concur with the Shift Assessment completed by the Licensed Practical Nurse today this shift.
[2019-11-05 08:53] VITALS: BP 96/52
[2019-11-05 12:09] VITALS: BP 92/50
--- NOTE | 2019-11-05 14:22 | NUR ---
ASSESSMENT DONE, DENIES NEEDS
[2019-11-05 16:52] VITALS: BP 92/44
--- NOTE | 2019-11-05 17:25 | NUR ---
I have reviewed this patient and I concur with the Shift Assessment completed by the Licensed Practical Nurse today this shift.
--- NOTE | 2019-11-05 18:36 | NUR ---
WITHOUT CHANGES OR DISTRESS NOTED AT THIS TIME. DENIES NEEDS
--- NOTE | 2019-11-05 19:30 | NUR ---
RECEIVED REPORT, WILL ASSUME CARE OF PT, SLEEPING, NO DISTRESS NOTICED AT THIS TIME, BED IS LOW, SRX2, CALL LIGHT IN REACH, WILL CONTINUE PLAN OF CARE
[2019-11-05 20:00] VITALS: BP 100/56
[2019-11-06] VITALS (7 sets, daily range): BP systolic 112–139; BP diastolic 54–73
--- NOTE | 2019-11-06 07:49 | NUR ---
ASSESSMENT DONE. DENIES NEEDS
[2019-11-06 08:23] LABS: BASOPHILS 0.2 % (0-2); EOSINOPHILS 1.3 % (0-7); HEMATOCRIT 43.8 % (42.0-54.0); HEMOGLOBIN 13.3 g/dL (13.5-17.5); IMMATURE GRANULOCYTES 0.4 % (0-5); LYMPHOCYTES 14.3 % (15-50); MCH 26.5 pg (26.0-34.0); MCHC 30.4 g/dL (31.0-37.0); MCV 87.4 fL (80.0-100.0); MONOCYTES 15.2 % (2-11); NEUTROPHILS 68.6 % (40-80); RBC 5.01 10x6/uL (4.20-6.10); RDW 14.6 % (11.5-14.5); WBC 4.6 10x3/uL (4.8-10.8)
[2019-11-06 08:24] LABS: PLATELET COUNT 218 10x3/uL (130-400)
[2019-11-06 08:41] LABS: ANION GAP 2.6 mmol/L (8-16); CALCIUM 8.2 mg/dL (8.5-10.1); CREATININE - SERUM 1.3 mg/dL (0.6-1.3); POTASSIUM - SERUM 3.5 mmol/L (3.5-5.1)
[2019-11-06 08:46] LABS: CARBON DIOXIDE 46.9 mmol/L (21.0-32.0)
--- NOTE | 2019-11-06 09:27 | NUR ---
I have reviewed this patient and I concur with the Shift Assessment completed by the Licensed Practical Nurse today this shift.
--- NOTE | 2019-11-06 19:15 | NUR ---
RECEIVED REPORT, WILL ASSUME CARE OF PT, DENIES ANY NEEDS AT THIS TIME, BED IS LOW, SR1, CALL LIGHT IN REACH, WILL CONTINUE PLAN OF CARE
--- NOTE | 2019-11-06 19:35 | NUR ---
PT TAKING A WALK IN [place], EXPLAINED HE DIDNT NEED TO LEAVE FLOOR
[2019-11-07 04:39] VITALS: BP 102/57; BP 161/66
--- NOTE | 2019-11-07 05:00 | NUR ---
I have reviewed this patient and I concur with the Shift Assessment completed by the Licensed Practical Nurse today this shift.
[2019-11-07 06:10] LABS: HEMATOCRIT 42.6 % (42.0-54.0); HEMOGLOBIN 12.6 g/dL (13.5-17.5); MCH 25.8 pg (26.0-34.0); MCHC 29.6 g/dL (31.0-37.0); MCV 87.3 fL (80.0-100.0); MEAN PLATELET VOLUME 10.5 fL (7.4-10.4); PLATELET COUNT 218 10x3/uL (130-400); RBC 4.88 10x6/uL (4.20-6.10); RDW 14.4 % (11.5-14.5); WBC 3.5 10x3/uL (4.8-10.8)
[2019-11-07 06:33] LABS: CALCIUM 8.4 mg/dL (8.5-10.1); CREATININE - SERUM 1.3 mg/dL (0.6-1.3); POTASSIUM - SERUM 3.6 mmol/L (3.5-5.1)
[2019-11-07 06:54] LABS: ANION GAP 5.7 mmol/L (8-16)
[2019-11-07 06:57] LABS: CARBON DIOXIDE 42.9 mmol/L (21.0-32.0)
--- NOTE | 2019-11-07 08:17 | NUR ---
ALERT AND ORIENTED. NO TELEMERTY. 02 AT 2 L/M PER NC.LEFT FA WITH A BUMEX DRIP AT 0.5. DENIES ANY NEEDS. SR UP WITH CALL LIGHT IN REACH. WILL MONITOR
[2019-11-07 08:43] VITALS: BP 129/62
[2019-11-07 11:42] LABS: EOSINOPHILS 3 % (0-7); LYMPHOCYTES 16 % (15-50); MONOCYTES 15 % (2-11); NEUTROPHILS 65 % (40-80); PLATELET ESTIMATE NORMAL
[2019-11-07 12:29] VITALS: BP 135/65
--- NOTE | 2019-11-07 14:26 | NUR ---
I have reviewed this patient and I concur with the Shift Assessment complete by the Licensed Practical Nurse today this shift.
--- NOTE | 2019-11-07 14:32 | NUR ---
Nutrition Follow-up: Eating well. Denies N/V/C/D. Noted I/O -4530 cc (11/06) & -5152 cc (11/05). Pt reports that he does not add a lot of salt to his food at home but eats out often. Encouraged pt to limit added salt and processed foods; pt reports that he knows he needs to make changes. Diet: Cardiac PO intake: 85% avg x 10 meals Wt: 200.6# (11/07); 215# (11/04) Last BM: 11/07 Labs reviewed Meds noted: Micro-K, Bumex -Continue current diet as tolerated. -Monitor wt; noted daily wts ordered. -RD following.
--- NOTE | 2019-11-07 16:20 | NUR ---
WALKING IN HALLWAY. NO SOB NOTED. GAIT STEADY.
[2019-11-07 17:35] VITALS: BP 104/58
[2019-11-07 20:00] VITALS: BP 126/73
[2019-11-08 04:00] VITALS: BP 103/61
[2019-11-08 06:29] LABS: BASOPHILS 0.5 % (0-2); EOSINOPHILS 1.5 % (0-7); HEMATOCRIT 44.1 % (42.0-54.0); HEMOGLOBIN 13.4 g/dL (13.5-17.5); IMMATURE GRANULOCYTES 0.2 % (0-5); LYMPHOCYTES 19.7 % (15-50); MCH 26.1 pg (26.0-34.0); MCHC 30.4 g/dL (31.0-37.0); MONOCYTES 16.3 % (2-11); NEUTROPHILS 61.8 % (40-80); PLATELET COUNT 225 10x3/uL (130-400); RBC 5.13 10x6/uL (4.20-6.10); RDW 14.3 % (11.5-14.5); WBC 4.1 10x3/uL (4.8-10.8)
[2019-11-08 06:49] LABS: ANION GAP 4.8 mmol/L (8-16); CALCIUM 8.5 mg/dL (8.5-10.1); CREATININE - SERUM 1.5 mg/dL (0.6-1.3); POTASSIUM - SERUM 3.5 mmol/L (3.5-5.1)
[2019-11-08 07:03] LABS: CARBON DIOXIDE 41.7 mmol/L (21.0-32.0)
--- NOTE | 2019-11-08 07:58 | NUR ---
ASSESSMENT DONE. DENIES NEEDS
[2019-11-08 09:47] VITALS: BP 110/66
--- NOTE | 2019-11-08 11:30 | NUR ---
I have reviewed this patient and I concur with the Shift Assessment completed by the Licensed Practical Nurse today this shift.
[2019-11-08 13:04] VITALS: BP 106/48
[2019-11-08] MEDS ORDERED: LISINOPRIL10 MG PO (13:57)
[2019-11-08] MEDS ORDERED: BUMEX2 MG PO (13:58)
--- NOTE | 2019-11-08 14:28 | MORECARE ---
CASE MANAGEMENT DISCHARGE SUMMARY PATIENT: IVA BROCK UNIT: [id number] ADM DATE: 11/03/19 AGE: 63 : 59 SEX: M ROOM/BED: D.1566 AUTHOR: CARA,DOC PHYSICIAN: REFERRING PHYSICIAN: MALINDA FELIX MD DATE OF SERVICE: 11/08/19 Discharge Plan Patient Name: IVA BROCK Facility: [facility]:[place] : 1955 Planned Disposition: Home Anticipated Discharge Date: 11/08/19 Discharge Date: Expected LOS: 5 Initial Reviewer: [email or web address] Initial Review Date: 11/03/2019 Generated: 11/08/19 3:28 pm Comments DCP- Discharge Planning Updated by [email or web address]: Mikayla Priest on 11/03/19 3:[address] CM met with patient to discuss initial discharge planning. Patient is in agreement to proceed with the assessment. Patient is alert/oriented. Stairs/steps: 0. PCP: . Pharmacy: [facility]. Patient states he has been able to obtain all of his medications "I think". Patient lives with a friend at present. States he "will get his own apartment the Nov and will need someone to come in and help him". HHS: No. DME: No. Patient gives permission to speak with family members. Emergency contact: Aria Armstrong (aunt) [phone]. Patient is Independent with all ADL's, medication management. CM discussed the availability of HH, Rehab, DME services. Patient denies the need for additional services at this time and feels safe returning to previous environment. Patient has been hospitalized within the past 30 days. Patient denies the use of community resources SPINE NURSE. Transportation at time of discharge: a friend (unknown). CM will assist PRN with dc needs/plans. DCPIA - Discharge Planning Initial Assessment Updated by [id number]: Mikayla Priest on 11/03/19 5:34 pm * Is the patient Alert and Oriented? Yes * How many steps to enter\\exit or inside your home? * PCP ? * Pharmacy [facility] * Preadmission Environment Home with Family * ADLs Independent * Equipment None * Other Equipment NA * List name and contact numbers for known caregivers / representatives who currently or will assist patient after discharge: Aria Armstrong (aunt) [phone] * Verbal permission to speak to the caregivers and representatives has been obtained from the patient. Yes * Community resources currently utilized None * Please name any agencies selected above. NA * Additional services required to return to the preadmission environment? No * Can the patient safely return to the preadmission environment? Yes * Has this patient been hospitalized within the prior 30 days at any hospital? Yes Last DP export: 11/03/19 4:40 p Patient Name: IVA BROCK Page [phone] at 1428 All edits/amendments must be made on the electronic document DICTATION DATE: 11/08/191427 AGENCY APPOINTMENTS SUPERVISOR: MACARENA 11/08/191427 RPT#: [id number] DC DATE: STATUS: ADM IN [facility] [address] [place] [address] END OF REPORT
--- NOTE | 2019-11-08 14:58 | EC ---
PATIENT:IVA BROCK DATE OF SERVICE: 11/03/19 SEX: M MEDICAL RECORD: [id number] DATE OF : [birth year] LOCATION:D.M2 D.212 AGE OF PATIENT: 63 ADMISSION DATE: 11/03/19 REFERRING PHYSICIAN: INTERPRETING PHYSICIAN: CHANDNI ORDOÑEZ MD ECHOCARDIOGRAM REPORT ECHO CHARGES 5 ECHO LIMITED Date: 11/04/19 CLINICAL DIAGNOSIS: CHF ECHOCARDIOGRAPHIC MEASUREMENTS (adult normal given) AC root (d.<3.7cm) 0 cm LV Septum d (<1.2 cm> 0 cm Valve Excursion 0 cm LV Septum (systole) 0 cm Left Atria (s.<4.0cm> 0 cm LVPW d(<1.2cm) 0 cm RV (d.<2.3cm) 0 cm LVPW (sytole) 0 cm LV diastole(<5.6CM) 0 cm MV E-F(>70mm/sec) 0 cm LV systole 0 cm LVOT Diameter cm MV exc.(>10mm) 0 cm Est.ejection fraction (50-75%) % DOPPLER: LVIT cm/sec A 0 cm/sec E 0 cm/sec LA 0 cm/sec RVSP 43.4 mmHg LVOT 0 cm/sec AOP1/2T m/s Asc. Ao 0 cm/sec RVOT 0 cm/sec RA 0 cm/sec PA 0 cm/sec AV Gradient Peak 0 mmHg AV Mean 0 mmHg AV Area 0 cm MV Gradient Peak 0 mmHg MV Mean 00 mmHg MV Area cm COMMENTS: Social Services Director: Leigha KO Gymnastics Instructor: 3 Dr. Tian TAPE# PACS Pericardial Effusion N DATE OF SERVICE: This includes 2D, color flow, Echo report. Gross LVH appears present. LV internal dimensions appeared dilated. LV is globally hypokinetic with reduced EF, estimated EF 20% to 25%. Aortic valve is tricuspid with good valve excursion. Left atrium appears upper limits of normal. Dilated mild MR. Right-sided chambers appear grossly normal. [id number] TR. ECHOCARDIOGRAM REPORT [id number] IVA BROCK TRANSINT:[id number] Voice Confirmation ID: [id number] DOCUMENT ID: [id number] CHANDNI ORDOÑEZ MD at 4038 CC: [id number] DICTATION DATE: 11/07/19 1434 WEAPONS ENGINEER: 11/07/192046 ADM IN [facility] [address] [place] [id number]
--- NOTE | 2019-11-08 15:34 | NUR ---
DC GIVEN TO PT
--- NOTE | 2019-11-08 16:04 | NUR ---
DC HOME PER PERSONAL CAR
== END 2019-11-08 16:05 | disposition home or self-care (01) | DRG 281 ==
LOC: D.ER 11:31 → D.M2 15:29
PROVIDERS: Emergency Medicine; ADMIT Internal Medicine Nephrology; ATTEND Internal Medicine Nephrology
DX: I11.0 Hypertensive heart disease with heart failure (principal); I21.4 Non-ST elevation (NSTEMI) myocardial infarction; N17.9 Acute kidney failure, unspecified; I50.23 Acute on chronic systolic (congestive) heart failure; I25.5 Ischemic cardiomyopathy; D64.9 Anemia, unspecified; E78.5 Hyperlipidemia, unspecified; I25.10 Atherosclerotic heart disease of native coronary artery without angina pectoris; J44.9 Chronic obstructive pulmonary disease, unspecified; B19.20 Unspecified viral hepatitis C without hepatic coma; Z72.89 Other problems related to lifestyle